=== PATIENT | female | born 1935 | race Caucasian/White ===

== ENCOUNTER 2020-08-01 11:46 | Inpatient (IN) | payer MEDICARE, OTHER ==
[2020-08-01] MEDS ORDERED: SODIUM CHLORIDE 0.9% 500 ML 500 ML IV SCH (17:15)
[2020-08-01 18:04] LABS: Albumin 3.3 g/dL (3.5-5.0); Potassium 4.3 mmol/L (3.5-5.1); Total Bilirubin 0.9 mg/dL (0.2-1.3); Total Protein 6.8 g/dL (6.3-8.2)
[2020-08-01 18:09] LABS: Anisocytosis Slight; HCT 23.4 % (34.0-46.0); HGB 7.5 gm/dL (11.4-16.0); Hypochromasia Slight; MCH 29.8 pg (25.0-35.0); MCHC 32.2 g/dL (31.0-37.0); MCV 92.5 fL (80.0-100.0); Mean Platelet Volume 11.1; Platelet Count 143 k/uL (150-450); Poikilocytosis Slight; RBC 2.53 m/uL (3.80-5.40); RDW 19.3 % (11.5-15.5)
--- NOTE | 2020-08-01 18:09 | XR ---
EXAMINATION TYPE: XR chest 1V portable DATE OF EXAM: 08/01/2020 COMPARISON: Same day outside study radiographs. HISTORY: Shortness of breath and chest pain. TECHNIQUE: Single frontal view of the chest is obtained. FINDINGS: There is redemonstration of small to moderate left pleural effusion with adjacent opacity. There is background of COPD. No pneumothorax. The cardiac silhouette size is within normal limits. The osseous structures are intact. IMPRESSION: Redemonstrated [id number] left pleural effusion and adjacent atelectasis.
[2020-08-01 18:12] LABS: WBC 1.2 k/uL (3.8-10.6)
[2020-08-01 18:40] LABS: Band Neutrophils % 5 %; Eosinophils # (M) 0.07 k/uL (0-0.7); Lymphocytes # (M) 0.43 k/uL (1.0-4.8); Monocytes # (M) 0.04 k/uL (0-1.0); Myelocytes # (M) 0.01 k/uL (0); Myelocytes % 1 %; Neutrophils % (M) 48 %; Nucleated Red Blood Cells 0 /100 WBC (0-0); Promyelocytes # (M) 0.01 k/uL (0); Promyelocytes % 1 %; Total Cells Counted 100
[2020-08-01 18:41] LABS: Poikilocytosis (M) Present
[2020-08-01] MEDS ORDERED: DILTIAZEM DRIP BOLUS FROM BAG 1 MG SOLN IV ONE (20:38)
[2020-08-01] MEDS: DILTIAZEM 125 MG in SODIUM CHLORIDE 0.9% 100 ML IV SCH (20:54)
[2020-08-01] MEDS ORDERED: HYDROcodone/APAP 5-325MG 1 EACH TAB PO PRN (20:56)
[2020-08-01] MEDS ORDERED: IPRATROPIUM-ALBUTEROL 3 ML NEB INHALATION PRN (20:57)
--- NOTE | 2020-08-01 21:06 | CT ---
EXAMINATION TYPE: CT chest wo con DATE OF EXAM: 08/01/2020 COMPARISON: Same day radiograph. Outside CT 12/13/2015. HISTORY: breathing changes CT DLP: 229.9 mGycm. Automated Exposure Control for Dose Reduction was Utilized. TECHNIQUE: CT scan of the thorax is performed without IV contrast. FINDINGS: LUNGS: There is background of moderate to severe centrilobular emphysema. There is mosaic attenuation pattern. There is small left lower lobe platelike opacity with "comet tail appearance" and may repre sent rounded atelectasis. There is associated moderate pleural thickening. Otherwise there is bilater al diffuse hazy opacity. No pneumothorax. There is small right pleural effusion. MEDIASTINUM: Lack of IV contrast is noted to limit evaluation for mediastinal and especially hilar ad enopathy. There are no definitive greater than 1 cm hilar or mediastinal lymph nodes. No cardiomega ly or pericardial effusion is seen. OTHER: No additional significant abnormality is seen. IMPRESSION: Moderate to severe emphysema with findings suggestive of small airway disease. Additional bilateral hazy opacities may represent edema and/atelectasis. Superimposed infiltrate hilton ot be entirely excluded. Left lower lobe platelike opacity with "comet tail appearance" and may represent rounded atelectasis. Associated moderate pleural thickening. Small right pleural effusion.
[2020-08-01] MEDS: DORZOLAMIDE HCL 2% DROPS 10 ML BTL BOTH EYES SCH (21:54)
[2020-08-01] MEDS: LATANOPROST 0.005% OPHTH DROPS 2.5 ML BTL BOTH EYES SCH (21:55)
--- NOTE | 2020-08-01 22:43 | HP ---
HISTORY AND PHYSICAL CHIEF COMPLAINTS: Shortness of breath as well as atrial fibrillation with rapid ventricular rate. HISTORY OF PRESENT ILLNESS: This 84-year-old woman with a past medical history of multiple medical problems, including history of pneumonia, sarcoidosis, thyroid disorder, right-sided pleurisy, hypothyroidism, living in [facility], was having shortness of breath for the last one week, which has worsened recently. Then the patient also had some pancytopenia. Patient went to [facility] and discussed the case at length with me and the patient was transferred to [facility] for further evaluation and treatment. Patient also had atrial fibrillation with a fast ventricular rate. Cardizem drip was initiated. There is no history of any fever, rigor or chills. No history of headache, loss of consciousness, seizures. A chest x-ray was done on admission, which was reviewed personally by me. It showed evidence of increased bronchovascular markings. A chest CT was done. D-dimer was elevated. We will repeat a D-dimer, and if the D-dimer is elevated, a CT angio will also will be ordered. The CT scan showed bilateral interstitial edema as well. PAST MEDICAL HISTORY: History of COPD, pneumonia, hypothyroidism, sarcoidosis, right-sided pleurisy, hypothyroidism. HOME MEDICATIONS: 1. Vitamin C/E/zinc. 2. PreserVision. 3. Iron sulfate. 4. Trusopt. 5. Synthroid. 6. Vitamin D3. 7. Xalatan. 8. Vitamin B12. 9. Ventolin. ALLERGIES: NONE. FAMILY HISTORY: History of diabetes mellitus in the family. SOCIAL HISTORY: Previous history of smoking. No current smoking or alcohol intake. REVIEW OF SYSTEMS: ENT: No diminished hearing. No diminished vision. CARDIOVASCULAR SYSTEM: As mentioned earlier. RESPIRATORY SYSTEM: As mentioned earlier. GI: No nausea, vomiting. : No dysuria or retention. NERVOUS SYSTEM: No numbness, weakness. ALLERGY/IMMUNOLOGY: No asthma, hayfever. MUSCULOSKELETAL: As mentioned earlier. HEMATOLOGY/ONCOLOGY: No history of anemia. ENDOCRINE: No history of diabetes, hypothyroidism. CONSTITUTIONAL: As mentioned earlier. DERMATOLOGY: Negative. RHEUMATOLOGY: Negative. PSYCHIATRY: As mentioned earlier. PHYSICAL EXAMINATION: Patient alert and oriented x3. Pulse is 80, blood pressure 120/90, respiration 20, temperature normal. HEENT: Conjunctivae normal. NECK: No jugular venous distention. CARDIOVASCULAR SYSTEM: S1, S2 muffled. RESPIRATORY SYSTEM: Breath sounds diminished at the bases. A few scattered rhonchi and crackles. ABDOMEN: Soft, non-tender. No mass palpable. LEGS: Left leg edema present and ulcer present. NERVOUS SYSTEM: Higher functions as mentioned earlier. Moves all 4 limbs. No focal motor or sensory deficit. LYMPHATICS: No lymph node palpable in neck, axillae or groin. SKIN: No ulcer, rash, bleeding. JOINTS: No active deforming arthropathy. LABS: Labs at this time show WBC 1.2, hemoglobin 7.5, platelets 143. ASSESSMENT: 1. Possible chronic obstructive pulmonary disease, acute exacerbation, with acute bilateral bronchopneumonia. 2. Rule out interstitial viral pneumonia, COVID-19 pneumonia. 3. Atrial fibrillation with fast ventricular rate. 4. Pancytopenia of undetermined etiology. 5. Severe leukopenia. 6. History of chronic obstructive pulmonary disease. 7. History of pneumonia. 8. History of sarcoidosis. 9. History of right-sided pleurisy. 10.Hypothyroidism. 11.History of cholecystectomy. 12.History of mediastinoscopy in 2010. RECOMMENDATIONS AND DISCUSSION: In this 84-year-old woman who presented with multiple complex medical issues, at this time I recommend to continue the current medications, continue symptomatic treatment. I recommend broad-spectrum IV antibiotics. Will continue with the Cardizem. Follow closely with Cardiology and Pulmonology. Otherwise, prognosis guarded because of multiple complex medical issues. Further recommendations to follow. MMODL / IJN: [id number] / MTDD
--- NOTE | 2020-08-01 23:21 | CT ---
EXAMINATION TYPE: CT chest angio for PE DATE OF EXAM: 08/01/2020 COMPARISON: Chest CT scan 12/13/2015 HISTORY: elevated d-dimer CT DLP: 232.4 mGycm Automated exposure control for dose reduction was used. CONTRAST: Performed with IV Contrast, patient injected with 55 mL of Isovue 370. Images obtained from the thoracic inlet to the diaphragm with IV contrast and 3-D post processed imag es. There are bilateral pleural effusions. There is more pleural fluid on the right side. There is bilate ral basilar pulmonary infiltrate and atelectasis. There are multiple enlarged paratracheal lymph nodes measuring up to almost 2 cm. There are anterior mediastinal enlarged lymph nodes measuring up to 2.2 cm. There are bilateral multiple bronchial lymph nodes measuring up to 1 cm. There is no pericardial effusion. There is coarse groundglass interstiti al infiltrate throughout the lungs. There is diffuse pulmonary emphysema. There are large central pulmonary arteries. I see no filling defects in the pulmonary arteries. There is mild thoracic dextroscoliosis. There is 5% depression of the superior endplate of T6 vertebr a that appears old. Sternum is intact. I see no focal bone destruction. IMPRESSION: No evidence of pulmonary embolism. Emphysema. Diffuse groundglass interstitial pulmonary infiltrates could relate to congestive heart fa ilure. Bilateral pleural effusions and basilar pulmonary infiltrates and atelectasis. Lung disease si gnificantly worse than old CT scan of 12/13/2015. T6 compression fracture unchanged. There is mediastinal and bronchial adenopathy that is slightly worse than old CT scan.
[2020-08-02] MEDS: PANTOPRAZOLE 40 MG TABLET PO SCH (06:48)
[2020-08-02] MEDS: LEVOTHYROXINE 112 MCG TAB PO SCH (06:49)
[2020-08-02 07:10] LABS: Appearance,Urine Clear (Clear); Bilirubin,Urine Negative (Negative); Blood,Urine Negative (Negative); Color,Urine Yellow; Glucose,Urine (UA) Negative (Negative); Ketones,Urine Negative (Negative); Leukocyte Esterase,Urine Negative (Negative); Mucus,Urine Rare /hpf; Nitrite,Urine Negative (Negative); Protein,Urine 1+ (Negative); RBC,Urine 2 /hpf (0-5); Squamous Epithelial Cell,Urine 2 /hpf (0-4); WBC,Urine 1 /hpf (0-5)
[2020-08-02 07:22] LABS: Specific Gravity,Urine >1.050 (1.001-1.035)
[2020-08-02] MEDS: IPRATROPIUM-ALBUTEROL 3 ML NEB INHALATION SCH ×3 (07:45→20:33)
[2020-08-02 08:12] LABS: Anisocytosis Slight; HCT 21.8 % (34.0-46.0); HGB 7.1 gm/dL (11.4-16.0); Hypochromasia Moderate; MCH 30.3 pg (25.0-35.0); MCHC 32.6 g/dL (31.0-37.0); Macrocytosis Slight; Mean Platelet Volume 10.9; Platelet Count 125 k/uL (150-450); Poikilocytosis Slight; RBC 2.35 m/uL (3.80-5.40); RDW 19.1 % (11.5-15.5)
[2020-08-02 08:20] LABS: Calcium 8.7 mg/dL (8.4-10.2); Potassium 4.5 mmol/L (3.5-5.1)
[2020-08-02 08:50] LABS: WBC 1.3 k/uL (3.8-10.6)
[2020-08-02] MEDS ORDERED: NON FORMULARY DRUG (Vit C/E/Zn/Coppr/Lutein/Zeaxan [Preservision Areds 2 Softgel] 1 EACH C PO SCH (09:00)
[2020-08-02] MEDS ORDERED: METOPROLOL TARTRATE 50 MG TAB PO SCH (10:00)
[2020-08-02] MEDS: DORZOLAMIDE HCL 2% DROPS 10 ML BTL BOTH EYES SCH ×2 (10:08→21:41)
[2020-08-02] MEDS: CYANOCOBALAMIN 500 MCG TAB PO SCH (10:09)
[2020-08-02] MEDS: CHOLECALCIFEROL 1,000 UNIT TAB PO SCH (10:09)
[2020-08-02] MEDS: FERROUS SULFATE 325 MG TAB PO SCH (10:09)
[2020-08-02] MEDS: FUROSEMIDE 10 MG/ML 4 ML VIAL IV SCH ×3 (11:38→23:51)
[2020-08-02 11:59] LABS: Band Neutrophils % 4 %; Basophils # (M) 0.03 k/uL (0-0.2); Lymphocytes # (M) 0.26 k/uL (1.0-4.8); Monocytes # (M) 0.09 k/uL (0-1.0); Neutrophils % (M) 51 %
[2020-08-02 12:04] LABS: Blast Cells # (M) 0.01 k/uL (0); Nucleated Red Blood Cells 0 /100 WBC (0-0); Total Cells Counted 100
[2020-08-02 12:05] LABS: Large Platelets Present
--- NOTE | 2020-08-02 12:11 | ECHOF ---
Referral Reason:afib MEASUREMENTS -------- HEIGHT: 172.7 cm WEIGHT: 65.8 kg BP: 115/55 RVIDd: 2.9 cm (< 3.3) IVSd: 1.2 cm (0.6 - 1.1) LVIDd: 5.2 cm (3.9 - 5.3) LVPWd: 1.2 cm (0.6 - 1.1) IVSs: 1.6 cm LVIDs: 3.1 cm LVPWs: 1.6 cm LA Diam: 3.4 cm (2.7 - 3.8) LAESV Index (A-L): 48.09 ml/m Ao Diam: 3.4 cm (2.0 - 3.7) AV Cusp: 2.0 cm (1.5 - 2.6) MV EXCURSION: 19.132 mm (> 18.000) MV EF SLOPE: 87 mm/s (70 - 150) EPSS: 0.5 cm AV maxP.55 mmHg AV meanP.69 mmHg AR PHT: 480 ms RAP: 5.00 mmHg RVSP: 41.78 mmHg FINDINGS -------- Atrial fibrillation. This was a technically good study. The left ventricular size is normal. There is borderline concentric left ventricular hypertrophy. Overall left ventricular systolic function is normal with, an EF between 60 - 65 %. The right ventricle is normal in size. LA is moderately dilated 34-39 ml/m2 The right atrium is normal in size. Interatrial and interventricular septum intact. There is mild aortic valve sclerosis. There is mild aortic regurgitation. Peak/mean gradient acro ss the Aortic Valve is 18.55mmHg / 9.69mmHg. The mitral valve leaflets are mildly thickened. Mild mitral annular calcification present. Mild m itral regurgitation is present. The peak and mean MV gradients are 11.09mmHg 3.25mmHg as measured by doppler. Mild tricuspid regurgitation present. There is mild pulmonary hypertension. The right ventricular systolic pressure, as measured by Doppler, is 41.78mmHg. Trace/mild (physiologic) pulmonic regurgitation. The aortic root size is normal. The inferior vena cava is mildly dilated. CONCLUSIONS -------- 1. The left ventricular size is normal. 2. There is borderline concentric left ventricular hypertrophy. 3. Overall left ventricular systolic function is normal with, an EF between 60 - 65 %. 4. LA is moderately dilated 34-39 ml/m2 5. There is mild aortic valve sclerosis. 6. There is mild aortic regurgitation. 7. Peak/mean gradient across the Aortic Valve is 18.55mmHg / 9.69mmHg. 8. The mitral valve leaflets are mildly thickened. 9. Mild mitral annular calcification present. 10. Mild mitral regurgitation is present. 11. The peak and mean MV gradients are 11.09mmHg 3.25mmHg as measured by doppler. 12. Mild tricuspid regurgitation present. 13. There is mild pulmonary hypertension. 14. The right ventricular systolic pressure, as measured by Doppler, is 41.78mmHg. 15. Trace/mild (physiologic) pulmonic regurgitation. 16. The inferior vena cava is mildly dilated. FAMILY PRACTICE NURSE PRACTITIONER: Annie Stockton RDCS
--- NOTE | 2020-08-02 12:15 | P.CRDCN ---
History of Present Illness History of present illness: HISTORY OF PRESENTING ILLNESS This is a pleasant 84-year-old occasion female past medical history significant for mitral and aortic regurgitation, sarcoidosis and hypothyroidism. She follows in the office with Dr. Armando. We have been asked to see in consultation for Deonte quiroz. She initially presented to [facility] with symptoms of shortness of breath. She states for he previous few days she has been experiencing increased shortness of breath from her baseline. On arrival her EKG revealed atrial fibrillation with rapid rate and cardizem was initiated. Rates when she arrived here were up as high as 160. Currently she is running in the 70's still in [employer]. She is dyspneic with conversation. She denies chest pain, dizziness, nausea, vomiting or diaphoresis. She continues to be on IV cardizem. Chest x- ray reveals small to moderate left pleural effusion. CT of the chest reveals left lower lobe opacity, associated moderate pleural thickening, moderate to severe emphysematous changes and bilateral hazy opacity is with the possibility of a superimposed infiltrate. CTA was also performed secondary to elevated d- dimer that was negative for pulmonary embolism with diffuse groundglass interstitial pulmonary infiltrates with more pleural fluid noted on the right. Laboratory data reviewed, WBC 1.9, hemoglobin 7.1, platelets 125, sodium 138, potassium 4.5, creatinine 1.06, cardiac enzymes negative 3, NT proBNP 11,300 and TSH 2.12. Current the she takes no daily cardiac medications. Most recent echocardiogram obtained in the office September 2019 reveals preserved LV systolic function with ejection fraction 55%, no regional wall motion abnormalities, moderately dilated left atrium, mild to moderate aortic regurgitation, mild to moderate mitral regurgitation and mild to moderate tricuspid regurgitation with an RVSP of 47 mmHg. REVIEW OF SYSTEMS At the time of my exam: CONSTITUTIONAL: Denies fever or chills. CARDIOVASCULAR: Complains of shortness of breath. Denies chest pain, orthopnea, PND or palpitations. RESPIRATORY: Denies cough. GASTROINTESTINAL: Denies abdominal pain, diarrhea, constipation, nausea or vomiting. MUSCULOSKELETAL: Denies myalgias. NEUROLOGIC: Denies numbness, tingling or weakness. ENDOCRINE: Denies fatigue, weight change, polydipsia or polyurina. GENITOURINARY: Denies burning, hematuria or urgency with micturation. HEMATOLOGIC: Denies history of anemia or bleeding. PHYSICAL EXAMINATION Blood pressure 116/66 heart rate 88 afebrile and maintaining oxygen saturation on nasal cannula. CONSTITUTIONAL: No apparent distress. HEENT: Head is normocephalic. Pupils are equal, round. Sclerae anicteric. Mucous membranes of the mouth are moist. No JVD. No carotid bruit. CHEST EXAMINATION: Diminished bilaterally. Scattered rhonchi and bibasilar rales. No chest wall tenderness is noted on palpation or with deep breathing. HEART EXAMINATION: Irregular rate and rhythm. S1, S2 heard. Systolic ejection murmur at the left sternal border, no gallops or rub. ABDOMEN: Soft, nontender. Positive bowel sounds. EXTREMITIES: 2+ peripheral pulses, trace bilateral lower extremity edema and no calf tenderness. NEUROLOGIC EXAMINATION: Patient is awake, alert and oriented x3. ASSESSMENT Paroxysmal atrial fibrillation with rapid ventricular rate, new onset Pancytopenia Pleural effusions Acute kidney injury Valvular heart disease Sarcoidosis Hypothyroidism PLAN Rates are currently better controlled. We will initiate lopressor 50 mg BID and discontinue cardizem infusion. For thromboembolic protection we will recommend eliquis however, would like to get the opinion first of Dr. Last given her pancytopenia. Obtain 2D echocardiogram and doppler study to assess cardiac structure and function. Pulmonary care team is also following for the pleural effusions. Further recommendations to follow based on clinical course. Thank you kindly for this consultation. Nurse Practitioner note has been reviewed, I agree with a documented findings and plan of care. Patient was seen and examined. Past Medical History Past Medical History: COPD, Pneumonia, Thyroid Disorder Additional Past Medical History / Comment(s): sarcoidosis, right side pleurisy, hypothyroidism History of Any Multi-Drug Resistant Organisms: None Reported Past Surgical History: Cholecystectomy Additional Past Surgical History / Comment(s): mediastinoscopy 2010 Past Anesthesia/Blood Transfusion Reactions: No Reported Reaction Past Psychological History: No Psychological Hx Reported Smoking Status: Never smoker Past Alcohol Use History: None Reported Past Drug Use History: None Reported - Past Family History Mother Family Medical History: Diabetes Mellitus Father Family Medical History: Cancer Medications and Allergies Home Medications Medication Instructions Recorded Confirmed Type Albuterol Nebulized [Ventolin 2.5 mg INHALATION Q6H PRN 12/22/15 08/01/20 History Nebulized] Cholecalciferol [Vitamin D3 (25 5,000 unit PO DAILY 12/22/15 08/01/20 History Mcg = 1000 Iu)] Cyanocobalamin [Vitamin B-12] 1,000 mcg PO DAILY 12/22/15 08/01/20 History Latanoprost [Xalatan 0.005%] 1 drop BOTH EYES HS 12/22/15 08/01/20 History Dorzolamide HCl [Trusopt 2%] 1 drop BOTH EYES BID 08/01/20 08/01/20 History Ferrous Sulfate [Iron (65 MG 325 mg PO DAILY 08/01/20 08/01/20 History Elemental)] Levothyroxine Sodium [Synthroid] 112 mcg PO DAILY 08/01/20 08/01/20 History Vit C/E/Zn/Coppr/Lutein/Zeaxan 1 tab PO DAILY 08/01/20 08/01/20 History [Preservision Areds 2 Softgel] Allergies Allergy/AdvReac Type Severity Reaction Status Date / Time No Known Allergies Allergy Verified 08/01/20 18:29 Physical Exam Vitals: Vital Signs Temp Pulse Pulse Resp BP Pulse Ox 08/02/20 08:00 97.7 F 88 20 116/66 97 08/02/20 07:55 88 08/02/20 07:47 84 08/02/20 04:00 98.1 F 74 19 115/55 94 L 08/02/20 00:00 98.4 F 100 20 124/58 96 08/01/20 20:00 98.2 F 133 H 19 135/67 94 L Intake and Output 08/01/20 08/02/20 08/02/20 22:59 06:59 14:59 Intake Total 240 Output Total 1 0 Balance 239 0 Intake: Oral 240 Output: Urine 1 0 Other: # Voids 1 Weight 65.5 kg 65.9 kg Results 08/02/20 07:06 08/02/20 07:06 Cardiac Enzymes 08/01/20 08/01/20 08/01/20 Range/Units 17:21 17:21 20:56 AST 17 (14-36) U/L Troponin I <0.012 <0.012 (0.000-0.034) ng/mL 08/02/20 Range/Units 00:47 AST (14-36) U/L Troponin I <0.012 (0.000-0.034) ng/mL CBC 08/01/20 08/02/20 Range/Units 17:21 07:06 WBC 1.2 L* 1.3 L* (3.8-10.6) k/uL RBC 2.53 L 2.35 L (3.80-5.40) m/uL Hgb 7.5 L 7.1 L (11.4-16.0) gm/dL Hct 23.4 L 21.8 L (34.0-46.0) % Plt Count 143 L 125 L (150-450) k/uL Comprehensive Metabolic Panel 08/01/20 08/02/20 Range/Units 17:21 07:06 Sodium 138 138 (137-145) mmol/L Potassium 4.3 4.5 (3.5-5.1) mmol/L Chloride 107 108 H (98-107) mmol/L Carbon Dioxide 26 26 (22-30) mmol/L BUN 25 H 29 H (7-17) mg/dL Creatinine 1.00 1.06 H (0.52-1.04) mg/dL Glucose 102 H 112 H (74-99) mg/dL Calcium 9.0 8.7 (8.4-10.2) mg/dL AST 17 (14-36) U/L ALT 9 (4-34) U/L Alkaline Phosphatase 110 (38-126) U/L Total Protein 6.8 (6.3-8.2) g/dL Albumin 3.3 L (3.5-5.0) g/dL Current Medications Generic Name Dose Route Start Last Admin Trade Name Freq PRN Reason Stop Dose Admin Hydrocodone Bitart/Acetaminophen 1 each 08/01/20 20:56 Hydrocodone/Apap 5-325mg 1 Each Tab PO Q6HR PRN Pain Albuterol/Ipratropium 3 ml 08/02/20 08:00 08/02/20 07:45 Ipratropium-Albuterol 3 Ml Neb INHALATION 3 ml RT-TID AAMIR Administration Albuterol/Ipratropium 3 ml 08/01/20 20:57 Ipratropium-Albuterol 3 Ml Neb INHALATION RT-TID PRN Shortness Of Breath Or Wheezing Apixaban 2.5 mg 08/02/20 10:00 Apixaban 2.5 Mg Tablet PO BID AAMIR Cholecalciferol 5,000 unit 08/02/20 09:00 08/02/20 10:09 Cholecalciferol 1,000 Unit Tab PO 5,000 unit DAILY AAMIR Administration Cyanocobalamin 1,000 mcg 08/02/20 09:00 08/02/20 10:09 Cyanocobalamin 500 Mcg Tab PO 1,000 mcg DAILY AAMIR Administration Dorzolamide HCl 1 drops 08/01/20 21:00 08/02/20 10:08 Dorzolamide Hcl 2% Drops 10 Ml Btl BOTH EYES 1 drops BID AAMIR Administration Ferrous Sulfate 325 mg 08/02/20 09:00 08/02/20 10:09 Ferrous Sulfate 325 Mg Tab PO 325 mg DAILY AAMIR Administration Furosemide 40 mg 08/02/20 11:00 08/02/20 11:38 Furosemide 10 Mg/Ml 4 Ml Vial IV 40 mg Q8HR AAMIR Administration Sodium Chloride 500 mls @ 20 mls/hr 08/01/20 17:15 08/01/20 21:03 Saline 0.9% IV 20 mls/hr .Q24H AAMIR Administration Diltiazem HCl 125 mg/ Sodium 125 mls @ 10 mls/hr 08/01/20 20:45 08/01/20 20:54 Chloride IV 10 mg/hr .[id number] AAMIR 10 mls/hr Administration 10 MG/HR Latanoprost 1 drops 08/01/20 21:00 08/01/20 21:55 Latanoprost 0.005% Ophth Drops 2.5 Ml Btl BOTH EYES 1 drops HS AAMIR Administration Levothyroxine Sodium 112 mcg 08/02/20 06:30 08/02/20 06:49 Levothyroxine 112 Mcg Tab PO 112 mcg DAILY@0630 AAMIR Administration Metoprolol Tartrate 50 mg 08/02/20 10:00 08/02/20 11:38 Metoprolol Tartrate 50 Mg Tab PO 50 mg BID AAMIR Administration Pantoprazole Sodium 40 mg 08/02/20 07:30 08/02/20 06:48 Pantoprazole 40 Mg Tablet PO 40 mg [id number] AAMIR Administration Intake and Output 08/01/20 08/02/20 08/02/20 22:59 06:59 14:59 Intake Total 240 Output Total 1 0 Balance 239 0 Intake: Oral 240 Output: Urine 1 0 Other: # Voids 1 Weight 65.5 kg 65.9 kg 08/02/20 07:06 08/02/20 07:06
--- NOTE | 2020-08-02 12:35 | P.PN ---
Subjective Patient is a pleasant 84-year-old the female with history of sarcoidosis and multiple other medical problems doesn't use any oxygen came in with complains of shortness of breath. Patient was also in atrial fibrillation was started on Cardizem drip patient had a CAT scan of the chest which appear like patient has bilateral pulmonary edema along with the some interstitial changes patient was a given Lasix was evaluated by cardiology. Cardizem is being discontinued at this time and patient will be started on beta hector. Patient also has pancytopenia with predominant blasts cells, oncology was consulted. Constitutional: Denied any fatigue denied any fever. Cardio vascular: denied any chest pain, palpitations Gastrointestinal denied any nausea vomiting Pulmonary: Still has some shortness of breath Neurologic denied any new focal deficits All inpatient medications were reviewed and appropriate changes in these medications as dictated in the interval history and assessment and plan. Objective - Vital Signs Vital signs: Vital Signs Temp 97.7 F 08/02/20 08:00 Pulse 88 08/02/20 08:00 Resp 20 08/02/20 08:00 BP 116/66 08/02/20 08:00 Pulse Ox 97 08/02/20 08:00 Intake & Output 08/01/20 08/02/20 08/02/20 18:59 06:59 18:59 Intake Total 240 Output Total 1 0 Balance 239 0 Weight 65.5 kg 65.9 kg Intake: Oral 240 Output: Urine 1 0 Other: # Voids 1 - Exam PHYSICAL EXAMINATION: GENERAL: The patient is alert and oriented x3, not in any acute distress. Well developed, well nourished. HEENT: Pupils are round and equally reacting to light. EOMI. No scleral icterus. No conjunctival pallor. Normocephalic, atraumatic. No pharyngeal erythema. No thyromegaly. CARDIOVASCULAR: S1 and S2 present. No murmurs, rubs, or gallops. PULMONARY: Chest is clear to auscultation, no wheezing or crackles. ABDOMEN: Soft, nontender, nondistended, normoactive bowel sounds. No palpable organomegaly. MUSCULOSKELETAL: No joint swelling or deformity. EXTREMITIES: No cyanosis, clubbing, or pedal edema. NEUROLOGICAL: Gross neurological examination did not reveal any focal deficits. SKIN: No rashes. - Labs CBC & Chem 7: 08/02/20 07:06 10/20/20 07:06 Labs: Abnormal Lab Results - Last 24 Hours (Table) 08/01/20 08/01/20 08/01/20 Range/Units 17:21 17:21 20:56 WBC 1.2 L* (3.8-10.6) k/uL RBC 2.53 L (3.80-5.40) m/uL Hgb 7.5 L (11.4-16.0) gm/dL Hct 23.4 L (34.0-46.0) % RDW 19.3 H (11.5-15.5) % Plt Count 143 L (150-450) k/uL Blast Cells % % Neutrophils # (Manual) 0.60 L (1.3-7.7) k/uL Lymphocytes # (Manual) 0.43 L (1.0-4.8) k/uL Myelocytes # (Manual) 0.01 H (0) k/uL Promyelocytes # (Man) 0.01 H (0) k/uL Blast Cells # (Man) (0) k/uL D-Dimer 25.94 H (<0.60) mg/L FEU Chloride (98-107) mmol/L BUN 25 H (7-17) mg/dL Creatinine (0.52-1.04) mg/dL Glucose 102 H (74-99) mg/dL Albumin 3.3 L (3.5-5.0) g/dL Ur Specific [place] (1.001-1.035) Urine Protein (Negative) Urine Mucus (None) /hpf 08/02/20 08/02/20 08/02/20 Range/Units 05:14 07:06 07:06 WBC 1.3 L* (3.8-10.6) k/uL RBC 2.35 L (3.80-5.40) m/uL Hgb 7.1 L (11.4-16.0) gm/dL Hct 21.8 L (34.0-46.0) % RDW 19.1 H (11.5-15.5) % Plt Count 125 L (150-450) k/uL Blast Cells % 1 H* % Neutrophils # (Manual) 0.70 L (1.3-7.7) k/uL Lymphocytes # (Manual) 0.26 L (1.0-4.8) k/uL Myelocytes # (Manual) (0) k/uL Promyelocytes # (Man) (0) k/uL Blast Cells # (Man) 0.01 H (0) k/uL D-Dimer (<0.60) mg/L FEU Chloride 108 H (98-107) mmol/L BUN 29 H (7-17) mg/dL Creatinine 1.06 H (0.52-1.04) mg/dL Glucose 112 H (74-99) mg/dL Albumin (3.5-5.0) g/dL Ur Specific [place] >1.050 H (1.001-1.035) Urine Protein 1+ H (Negative) Urine Mucus Rare H (None) /hpf Assessment and Plan Plan: -Shortness of breath: Probably secondary to congestive heart failure chronic diastolic dysfunction with acute exacerbation her a heart failure probably precipitated by atrial fibrillation. Patient received diuretics -Acute hypoxic respiratory failure: Secondary to CHF -COPD with probable mild acute exacerbation -Sarcoidosis -Congestive heart failure possible chronic diastolic dysfunction with mild acute exacerbation echocardiogram pending. Patient had a normal EF in the past -Proximal A. fib new onset: Patient was started on beta hector patient is presently rate controlled Cardizem was discontinued and patient will be in itiated on oral anticoagulation was on heparin -Bilateral pleural effusions secondary to CHF -Pancytopenia with predominant blasts cells: Oncology was consulted patient will need a bone marrow biopsy as an outpatient to rule out any leukemias.
[2020-08-02] MEDS: DILTIAZEM 125 MG in SODIUM CHLORIDE 0.9% 100 ML IV SCH (14:34)
--- NOTE | 2020-08-02 17:03 | CONS ---
CONSULTATION PULMONARY/CRITICAL CARE CONSULTATION: DATE OF SERVICE: 08/02/2020 This is an 84-year-old female known to me. She has a history of inactive or quiescent sarcoidosis. I have been seeing her for over the course of many years for her sarcoid, which was active at one point and placed in remission with a combination of corticosteroids and hydroxychloroquine. She has a history as well of pneumonia, right- sided pleurisy, hypothyroidism and also possibly some underlying COPD. She was a heavy smoker in the past. Anyway, she presented to [facility] with complaints of increasing shortness of breath. She did not have any chest pain or chest discomfort. She was not wheezing or coughing. She had no fever or chills. The patient apparently was discovered to have atrial fibrillation with RVR, and she was placed on a Cardizem drip. She is still short of breath but feeling better. Again, she denies any nausea, vomiting, diarrhea. She denies any abdominal pain. No genitourinary complaints. She also denies any additional pulmonary issues or complaints. She also denies any chest pain or chest discomfort. She also denies interestingly any palpitations, fluttering in her chest or rapid heartbeat. Currently she is resting comfortably. PAST MEDICAL HISTORY: Her past medical history is positive for COPD from previous tobacco use, pneumonia, hypothyroidism, sarcoidosis, pleurisy and hypothyroidism. HOME MEDICATIONS: Home medications include vitamin C, E and zinc, PreserVision, iron sulfate, eye drops, Synthroid, vitamin D3, vitamin B12 and Ventolin p.r.n. ALLERGIES: DENIED. FAMILY HISTORY: Positive for diabetes. SOCIAL HISTORY: Positive for previous tobacco use. She has not smoked in a number of years. She smoked for about 30 to 35 years total. No illicit drug use or alcohol intake. SURGICAL HISTORY: Surgical history is mostly remote. REVIEW OF SYSTEMS: CONSTITUTIONAL: Negative. NEUROLOGIC: Negative. HEENT: Negative. CARDIOVASCULAR: Negative. PULMONARY: Shortness of breath. GI: Negative. : Negative. RHEUMATOLOGIC: Negative. IMMUNOLOGIC: Negative. ENDOCRINOLOGIC: Negative. DERMATOLOGIC: Negative. PHYSICAL EXAMINATION: VITAL SIGNS: Current vital signs are reviewed. Temperature is 97.7, heart rate about 88 beats per minute and very irregular. Respiratory rate is about 25 to 26 breaths per minute. She appears to be in mild distress. Blood pressure 113/50 with mean 71, two- liter saturation 97%. GENERAL APPEARANCE: She appears mildly tachypneic. HEENT: Examination is grossly unremarkable. Nasal oxygen noted. NECK: Supple. Full range of motion. No adenopathy. Neck veins are flat. CARDIOVASCULAR: Examination reveals irregular rhythm and rate. Heart rate about 88 to 92 beats per minute. She is clearly in atrial fibrillation. No murmur. Heart sounds are distant. LUNGS: Lungs reveal bibasilar crackles. No wheezes or rhonchi. Breath sounds equal. ABDOMEN: Soft. Bowel sounds are heard. EXTREMITIES: Extremities reveal some mild edema. SKIN: Without rash. There are some chronic venostasis changes in the lower extremities. NEUROLOGIC: Neurologic examination is unremarkable. LABS: Reviewed. White count 1.3, hemoglobin 7.1, hematocrit 21.8. Platelet count is 125,000. D-dimer 25.94. Sodium 138, potassium 4.5, chloride 108, CO2 26. Anion gap is 4. BUN and creatinine were 29 and 1.06. Troponins were negative x3. N-terminal proBNP was 11,300. Urine was negative. Chest x-ray and CT scan and CT angiogram in my opinion are consistent with fluid overload. MEDICATIONS: Medications are reviewed. She is on Eliquis, vitamin D3, vitamin B12, Cardizem drip, eyedrops, iron, Lasix, [place], DuoNeb, levothyroxine, Protonix and a basic IV at 20 mL/hour of saline. ASSESSMENT: 1. Shortness of breath secondary to atrial fibrillation with rapid ventricular response and congestive heart failure. 2. Doubt chronic obstructive pulmonary disease exacerbation or any infection at this time. 3. History of inactive of quiescent sarcoidosis. 4. Previous history of heavy tobacco use. Rule out COPD, which is not active at this time. 5. History of pneumonia. 6. Hypothyroidism. 7. History of pleurisy. PLAN: Currently the patient is given Lasix 40 mg IV push q.8 hours. Cardiology is seeing the patient. I stopped antibiotics. The updrafts are okay for now. Additional recommendations and suggestions are forthcoming. Her sarcoid is not active at this time. Her COPD is not active at this time. No active infection in my opinion. Will continue to follow. MMODL / IJN: [id number] /
[2020-08-02] MEDS: APIXABAN 2.5 MG TABLET PO SCH ×2 (17:33→21:57)
--- NOTE | 2020-08-02 19:08 | P.CONS ---
History of Present Illness - Reason for Consult Consult date: 08/02/20 Pancytopenia, A fib with RVR, Sarcoidosis - History of Present Illness The patient is an 84-year-old white female with multiple medical problems. Include a known history of sarcoidosis, chronic lung infiltrates and pneumonia in the past. 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 The patient subsequently was evaluated by hematology, Dr. Kim , at [facility]. The patient states that she had lab workup which was negative. She denies having a bone marrow aspiration biopsy. She states that she has been on follow-up once a year as her counts have been stable. Her next visit was due in 09/02. The patient wanted to [facility] with increasing shortness of breath over the past week. She has a chronic cough with mild whitish expectoration which is unchanged. She was found to have atrial fibrillation with rapid ventricular response and was transferred here. She has had a chest x-ray, as well as CT and CTA of the chest. This was negative for evidence of PE. This showed bilateral interstitial infiltrates, somewhat more prominent at the bases with bilateral pleural effusions. In addition she was noted to have paratracheal, anterior mediastinal and bronchial lymph nodes, with the largest up to 2.2 cm in the paratracheal area. CBC this admission showed hemoglobin in the 7-8 range, platelets in the 120- 140 range, and WBC of 1.2-1.3 with ANC Consult was therefore placed for further evaluation and recommendations. She denied any specific be symptoms suggest fevers or weight loss. Appetite and oral intake have been at baseline. No unusual bleeding or bruising, joint swelling, or palpable lymph node enlargement noted. No addition of new medications recently. There is no history of any excessive alcohol use of chronic liver disease. Review of Systems Constitutional: Reports fatigue, Reports weakness Eyes: denies blurred vision, denies pain Ears: deny: decreased hearing, ear discharge, earache, tinnitus Ears, nose, mouth and throat: Denies headache, Denies sore throat Cardiovascular: Reports irregular heart beat, Reports palpitations, Reports samuel rtness of breath Respiratory: Reports cough with sputum, Reports dyspnea Gastrointestinal: Denies abdominal pain, Denies diarrhea, Denies nausea, Denies vomiting Genitourinary: Denies dysuria, Denies hematuria Menstruation: Reports postmenopausal Musculoskeletal: Reports muscle weakness Integumentary: Denies pruritus, Denies rash Neurological: Reports weakness, Denies numbness Psychiatric: Denies anxiety, Denies depression Endocrine: Reports fatigue Hematologic/Lymphatic: Reports as per HPI Past Medical History Past Medical History: COPD, Pneumonia, Thyroid Disorder Additional Past Medical History / Comment(s): sarcoidosis, right side pleurisy, hypothyroidism History of Any Multi-Drug Resistant Organisms: None Reported Past Surgical History: Cholecystectomy Additional Past Surgical History / Comment(s): mediastinoscopy 2010 Past Anesthesia/Blood Transfusion Reactions: No Reported Reaction Past Psychological History: No Psychological Hx Reported Smoking Status: Never smoker Past Alcohol Use History: None Reported Past Drug Use History: None Reported - Past Family History Mother Family Medical History: Diabetes Mellitus Father Family Medical History: Cancer Medications and Allergies Home Medications Medication Instructions Recorded Confirmed Type Albuterol Nebulized [Ventolin 2.5 mg INHALATION Q6H PRN 12/22/15 08/01/20 History Nebulized] Cholecalciferol [Vitamin D3 (25 5,000 unit PO DAILY 12/22/15 08/01/20 History Mcg = 1000 Iu)] Cyanocobalamin [Vitamin B-12] 1,000 mcg PO DAILY 12/22/15 08/01/20 History Latanoprost [Xalatan 0.005%] 1 drop BOTH EYES HS 12/22/15 08/01/20 History Dorzolamide HCl [Trusopt 2%] 1 drop BOTH EYES BID 08/01/20 08/01/20 History Ferrous Sulfate [Iron (65 MG 325 mg PO DAILY 08/01/20 08/01/20 History Elemental)] Levothyroxine Sodium [Synthroid] 112 mcg PO DAILY 08/01/20 08/01/20 History Vit C/E/Zn/Coppr/Lutein/Zeaxan 1 tab PO DAILY 08/01/20 08/01/20 History [Preservision Areds 2 Softgel] Allergies Allergy/AdvReac Type Severity Reaction Status Date / Time No Known Allergies Allergy Verified 08/01/20 18:29 Physical Exam Vitals: Vital Signs Temp Pulse Pulse Resp BP Pulse Ox 08/02/20 15:22 63 20 117/61 97 08/02/20 13:20 50 L 20 113/50 97 08/02/20 13:16 52 L 08/02/20 13:06 48 L 08/02/20 08:00 97.7 F 88 20 116/66 97 08/02/20 07:55 60 08/02/20 07:47 60 08/02/20 04:00 98.1 F 74 19 115/55 94 L 08/02/20 00:00 98.4 F 100 20 124/58 96 08/01/20 20:00 98.2 F 133 H 19 135/67 94 L Intake and Output 08/02/20 08/02/20 08/02/20 06:59 14:59 22:59 Intake Total 100 230 Output Total 0 450 Balance 100 -220 Intake: Oral 100 230 Output: Urine 0 450 Other: # Voids 1 Weight 65.9 kg - Constitutional General appearance: no acute distress - EENT Eyes: EOMI, PERRLA ENT: hearing grossly normal, normal oropharynx - Neck Neck: no lymphadenopathy Thyroid: bilateral: normal size - Respiratory Respiratory: bilateral: rales, prolonged expiration - Cardiovascular Rhythm: irregularly irregular Heart sounds: normal: S1, S2 - Gastrointestinal General gastrointestinal: normal bowel sounds, soft - Integumentary Integumentary: normal - Neurologic Neurologic: CNII-XII intact - Musculoskeletal Musculoskeletal: generalized weakness, strength equal bilaterally - Psychiatric Psychiatric: A&O x's 3, appropriate affect Results CBC & Chem 7: 08/02/20 07:06 08/02/20 07:06 Labs: Abnormal Lab Results - Last 24 Hours (Table) 08/01/20 08/02/20 08/02/20 Range/Units 20:56 05:14 07:06 WBC 1.3 L* (3.8-10.6) k/uL RBC 2.35 L (3.80-5.40) m/uL Hgb 7.1 L (11.4-16.0) gm/dL Hct 21.8 L (34.0-46.0) % RDW 19.1 H (11.5-15.5) % Plt Count 125 L (150-450) k/uL Blast Cells % 1 H* % Neutrophils # (Manual) 0.70 L (1.3-7.7) k/uL Lymphocytes # (Manual) 0.26 L (1.0-4.8) k/uL Blast Cells # (Man) 0.01 H (0) k/uL D-Dimer 25.94 H (<0.60) mg/L FEU Chloride (98-107) mmol/L BUN (7-17) mg/dL Creatinine (0.52-1.04) mg/dL Glucose (74-99) mg/dL Ur Specific [place] >1.050 H (1.001-1.035) Urine Protein 1+ H (Negative) Urine Mucus Rare H (None) /hpf 08/02/20 Range/Units 07:06 WBC (3.8-10.6) k/uL RBC (3.80-5.40) m/uL Hgb (11.4-16.0) gm/dL Hct (34.0-46.0) % RDW (11.5-15.5) % Plt Count (150-450) k/uL Blast Cells % % Neutrophils # (Manual) (1.3-7.7) k/uL Lymphocytes # (Manual) (1.0-4.8) k/uL Blast Cells # (Man) (0) k/uL D-Dimer (<0.60) mg/L FEU Chloride 108 H (98-107) mmol/L BUN 29 H (7-17) mg/dL Creatinine 1.06 H (0.52-1.04) mg/dL Glucose 112 H (74-99) mg/dL Ur Specific [place] (1.001-1.035) Urine Protein (Negative) Urine Mucus (None) /hpf Comments: ECHO report reviewed Chest x-ray: report reviewed CT scan - chest: report reviewed Assessment and Plan (1) Pancytopenia Narrative/Plan: The patient has a known history of bicytopenia dating back to 2015. She is on regular follow-up with hematology at [facility]. The patient her counts were stable at her last visit in 09/01. Based on the available history it appears that lab workup was negative. Due to stability of her counts bone marrow aspiration biopsy was not performed. Th erefore exact etiology is not available. Given the patient's age underlying myelodysplasia, and even sarcoid involvement are in the differential. In this admission there is significant decline in her counts from baseline. Transient a decline due to added stress of acute illness, on a marrow that is chronically compromised at baseline is the most likely diagnosis. In that situation the treatment would be essentially supportive, with the expectation that counts will improve back to baseline once the acute illness results. However progression of an underlying marrow process also remains in the differential. At this time we will treat supportively, I starting the patient on white cell growth factors. Monitor hemoglobin and transfuse to keep greater than 7. Plt counts are well within a safe range. Pancytopenia workup will be repeated. Request records from her last visit with hematology from [facility] Current Visit: Yes Status: Acute Code(s): D61.818 - OTHER PANCYTOPENIA SNOMED Code(s): 753724701 (2) Atrial fibrillation with RVR Narrative/Plan: Weight is better controlled. Cardiology as well as pulmonary medicine are also following. Defer to them for acute management It is okay to anticoagulate the patient, as long as her platelet counts are greater than 50,000. though currently lower than normal, they are well above that safe limit. Current Visit: Yes Status: Acute Code(s): I48.91 - UNSPECIFIED ATRIAL FIBRILLATION SNOMED Code(s): 380834156176421
[2020-08-02] MEDS: FILGRASTIM-SNDZ 300 MCG/0.5 ML SYRINGE SQ SCH (21:41)
[2020-08-02] MEDS: LATANOPROST 0.005% OPHTH DROPS 2.5 ML BTL BOTH EYES SCH (21:41)
[2020-08-03] MEDS: PANTOPRAZOLE 40 MG TABLET PO SCH (06:37)
[2020-08-03] MEDS: LEVOTHYROXINE 112 MCG TAB PO SCH (06:37)
[2020-08-03] MEDS: IPRATROPIUM-ALBUTEROL 3 ML NEB INHALATION SCH ×3 (07:11→20:12)
[2020-08-03 07:39] LABS: Anisocytosis Slight; HGB 7.2 gm/dL (11.4-16.0); Hypochromasia Slight; MCH 30.5 pg (25.0-35.0); MCHC 32.7 g/dL (31.0-37.0); MCV 93.5 fL (80.0-100.0); Macrocytosis Slight; Mean Platelet Volume 10.8; Platelet Count 133 k/uL (150-450); Poikilocytosis Slight; RBC 2.35 m/uL (3.80-5.40); RDW 19.1 % (11.5-15.5); WBC 2.1 k/uL (3.8-10.6)
[2020-08-03 07:48] LABS: Reticulocyte % 1.8 % (0.5-2.0)
[2020-08-03 08:01] LABS: Calcium 8.6 mg/dL (8.4-10.2); Potassium 4.1 mmol/L (3.5-5.1)
[2020-08-03 08:46] LABS: Band Neutrophils % 10 %; Eosinophils # (M) 0.11 k/uL (0-0.7); Lymphocytes # (M) 0.17 k/uL (1.0-4.8); Metamyelocytes # (M) 0.02 k/uL (0); Metamyelocytes % 1 %; Monocytes # (M) 0.04 k/uL (0-1.0); Myelocytes # (M) 0.02 k/uL (0); Myelocytes % 1 %; Neutrophils % (M) 73 %
[2020-08-03 08:47] LABS: Blast Cells # (M) 0.04 k/uL (0); Large Platelets Present; Nucleated Red Blood Cells 0 /100 WBC (0-0); Total Cells Counted 200
[2020-08-03] MEDS: FILGRASTIM-SNDZ 300 MCG/0.5 ML SYRINGE SQ SCH (09:25)
[2020-08-03] MEDS: CHOLECALCIFEROL 1,000 UNIT TAB PO SCH (09:26)
[2020-08-03] MEDS: FERROUS SULFATE 325 MG TAB PO SCH (09:27)
[2020-08-03] MEDS: APIXABAN 2.5 MG TABLET PO SCH ×2 (09:27→19:52)
[2020-08-03] MEDS: FUROSEMIDE 10 MG/ML 4 ML VIAL IV SCH ×2 (09:27→19:52)
[2020-08-03] MEDS: CYANOCOBALAMIN 500 MCG TAB PO SCH (09:27)
[2020-08-03] MEDS: DORZOLAMIDE HCL 2% DROPS 10 ML BTL BOTH EYES SCH ×2 (09:28→21:36)
[2020-08-03] MEDS: METOPROLOL TARTRATE 12.5 MG TAB PO SCH ×2 (09:29→19:52)
--- NOTE | 2020-08-03 10:15 | P.PN ---
Subjective Patient is a pleasant 84-year-old the female with history of sarcoidosis and multiple other medical problems doesn't use any oxygen came in with complains of shortness of breath. Patient was also in atrial fibrillation was started on Cardizem drip patient had a CAT scan of the chest which appear like patient has bilateral pulmonary edema along with the some interstitial changes patient was a given Lasix was evaluated by cardiology. Cardizem is being discontinued at this time and patient will be started on beta hector. Patient also has pancytopenia with predominant blasts cells, oncology was consulted. 08/03/2020 Patient day saturations are borderline on 2-3 L of oxygen patient is wheezing on exam can be cardiac asthma can be COPD examination patient was started on inhaled steroids patient is already and albuterol ipratropium which will be continued patient can use to be on IV Lasix. Patient was evaluated by oncology for pancytopenia, lab work up was ordered for pancytopenia although they're not recommending any bone marrowaspiration as she may have some amount of myelodysplasia and considering her age there will not be any significant further intervention at this time. Constitutional: Denied any fatigue denied any fever. Cardio vascular: denied any chest pain, palpitations Gastrointestinal denied any nausea vomiting Pulmonary: Still has some shortness of breath Neurologic denied any new focal deficits All inpatient medications were reviewed and appropriate changes in these medications as dictated in the interval history and assessment and plan. Objective - Vital Signs Vital signs: Vital Signs Temp 97.9 F 08/03/20 04:00 Pulse 85 08/03/20 04:00 Resp 19 08/03/20 04:00 BP 135/55 08/03/20 04:00 Pulse Ox 93 L 08/03/20 04:00 Intake & Output 08/02/20 08/03/20 08/03/20 18:59 06:59 18:59 Intake Total 330 Output Total 450 600 Balance -120 -600 Weight 64.4 kg Intake: Oral 330 Output: Urine 450 600 - Exam PHYSICAL EXAMINATION: GENERAL: The patient is alert and oriented x3, not in any acute distress. Well developed, well nourished. HEENT: Pupils are round and equally reacting to light. EOMI. No scleral icterus. No conjunctival pallor. Normocephalic, atraumatic. No pharyngeal erythema. No thyromegaly. CARDIOVASCULAR: S1 and S2 present. No murmurs, rubs, or gallops. PULMONARY: significant expiratory wheezing on exam with mild rhonchi ABDOMEN: Soft, nontender, nondistended, normoactive bowel sounds. No palpable organomegaly. MUSCULOSKELETAL: No joint swelling or deformity. EXTREMITIES: No cyanosis, clubbing, or pedal edema. NEUROLOGICAL: Gross neurological examination did not reveal any focal deficits. SKIN: No rashes. - Labs CBC & Chem 7: 08/03/20 06:57 08/03/20 06:57 Labs: Abnormal Lab Results - Last 24 Hours (Table) 08/02/20 08/03/20 08/03/20 Range/Units 07:06 06:57 06:57 WBC 1.3 L* 2.1 L (3.8-10.6) k/uL RBC 2.35 L 2.35 L (3.80-5.40) m/uL Hgb 7.1 L 7.2 L (11.4-16.0) gm/dL Hct 21.8 L 22.0 L (34.0-46.0) % RDW 19.1 H 19.1 H (11.5-15.5) % Plt Count 125 L 133 L (150-450) k/uL Blast Cells % 1 H* 2 H* % Neutrophils # (Manual) 0.70 L (1.3-7.7) k/uL Lymphocytes # (Manual) 0.26 L 0.17 L (1.0-4.8) k/uL Metamyelocytes # (Man) 0.02 H (0) k/uL Myelocytes # (Manual) 0.02 H (0) k/uL Blast Cells # (Man) 0.01 H 0.04 H (0) k/uL BUN 31 H (7-17) mg/dL Creatinine 1.09 H (0.52-1.04) mg/dL Glucose 105 H (74-99) mg/dL Microbiology - Last 24 Hours (Table) 08/01/20 20:58 Blood Culture - Preliminary Blood No Growth after 24 hours Assessment and Plan Plan: -Shortness of breath: Probably secondary to congestive heart failure chronic diastolic dysfunction with acute exacerbation her a heart failure probably precipitated by atrial fibrillation. Patient received diuretics -Acute hypoxic respiratory failure: Secondary to CHF -COPD with probable mild acute exacerbation, patient will be started on inhaled steroids. -Sarcoidosis -Congestive heart failure possible chronic diastolic dysfunction with acute exacerbation echocardiogram showed normal ejection fraction. Patient had a normal EF in the past -Proximal A. fib new onset: Patient was started on beta hector patient is presently rate controlled Cardizem was discontinued and patient will be initiated on oral anticoagulation 50 Eliquis -Bilateral pleural effusions secondary to CHF -Pancytopenia with predominant blasts cells: Oncology evaluated the patient starting on workup and further workup for Pancytopenia was ordered but not recommending any bone marrow biopsy as mentioned above , patient probably has Myelodysplasia
--- NOTE | 2020-08-03 10:59 | US ---
EXAMINATION TYPE: US abdomen complete DATE OF EXAM: 08/03/2020 COMPARISON: NONE CLINICAL HISTORY: Pancytopenia, poss splenomegaly, chronic liver dis. EXAM MEASUREMENTS: Liver Length: 19.6 cm Gallbladder Wall: Surgically absent CBD: 0.7 cm Spleen: 16.5 cm Right Kidney: 9.6 x 3.9 x 4.4 cm Left Kidney: 9.7 x 4.7 x 5.2 cm Pancreas: Mostly obscured by bowel gas, portions visualized wnl Liver: enlarged Gallbladder: Surgically absent Evidence for sonographic Marshall's sign: no CBD: wnl Spleen: splenomegaly, splenic lesion measuring 1.3 x 1.1 x 1.0cm Right Kidney: No hydronephrosis or masses seen Left Kidney: Mostly obscured by overlying bowel gas, no obvious abnormality Upper IVC: prominent Abd Aorta: heavily calcified aorta Small right pleural effusion is noted The liver is homogenous. The intrahepatic portion of the IVC and proximal abdominal aorta are within normal limits. Common bile duct is unremarkable. The visualized portions of the pancreas are homoge nous. The spleen is unremarkable. Kidneys are symmetric and free of hydronephrosis. No renal lesio ns are seen. IMPRESSION: Hepatosplenomegaly. Small right pleural effusion. Stopped change. Indeterminate splenic l esion.
--- NOTE | 2020-08-03 11:31 | P.PN ---
Subjective HISTORY OF PRESENTING ILLNESS This is a pleasant 84-year-old occasion female past medical history significant for mitral and aortic regurgitation, sarcoidosis and hypothyroidism. She follows in the office with Dr. Armando. She converted to sinus mechanism yesterday after metoprolol was given. Initially she was in a junctional rhythm. This morning she is sinus with heart rate of 88. Blood pressure 131/60. Laboratory data reviewed, WBC 2.1, hemoglobin 7.2, platelets 133, sodium 139, potassium 4.1, creatinine 1.09. Eliquis was initiated last night per hematology. Echocardiogram obtained reveals preserved LV systolic function with ejection fr action 60-65%, mild aortic regurgitation, mild aortic stenosis with a mean gradient of 9 mmHg, mild MR with peak gradient across the mitral valve with 3 mmHg, mild TR and mild pulmonary hypertension with an RVSP of 41 mmHg. Pulmonary care team has started her on IV diuretics. She has put out 1050 mL the previous 24 hours. PHYSICAL EXAMINATION CONSTITUTIONAL: No apparent distress. HEENT: Head is normocephalic. Pupils are equal, round. Sclerae anicteric. Mucous membranes of the mouth are moist. No JVD. No carotid bruit. CHEST EXAMINATION: Diminished bilaterally. Scattered rhonchi and bibasilar rales. No chest wall tenderness is noted on palpation or with deep breathing. HEART EXAMINATION: Regular rate and rhythm. S1, S2 heard. Systolic ejection murmur at the left sternal border, no gallops or rub. EXTREMITIES: 2+ peripheral pulses, trace bilateral lower extremity edema and no calf tenderness. ASSESSMENT Paroxysmal atrial fibrillation with rapid ventricular rate, new onset Acute diastolic heart failure Pancytopenia Pleural effusions Acute kidney injury Valvular heart disease Sarcoidosis Hypothyroidism PLAN Continue Eliquis. Decreased Lopressor to 12.5 mg twice a day. Continue IV diuresis. Follow renal function and electrolytes in the morning. Repeat chest xray tomorrow. Nurse Practitioner note has been reviewed, I agree with a documented findings and plan of care. Patient was seen and examined. Objective - Vital Signs Vital signs: Vital Signs Temp 97.8 F 08/03/20 09:15 Pulse 80 08/03/20 10:43 Resp 20 08/03/20 09:15 BP 131/60 08/03/20 09:15 Pulse Ox 98 08/03/20 09:15 Intake & Output 08/02/20 08/03/20 08/03/20 18:59 06:59 18:59 Intake Total 330 Output Total 450 600 350 Balance -120 -600 -350 Weight 64.4 kg Intake: Oral 330 Output: Urine 450 600 350 - Labs CBC & Chem 7: 08/03/20 06:57 08/03/20 06:57 Labs: Abnormal Lab Results - Last 24 Hours (Table) 08/02/20 08/03/20 08/03/20 Range/Units 07:06 06:57 06:57 WBC 1.3 L* 2.1 L (3.8-10.6) k/uL RBC 2.35 L 2.35 L (3.80-5.40) m/uL Hgb 7.1 L 7.2 L (11.4-16.0) gm/dL Hct 21.8 L 22.0 L (34.0-46.0) % RDW 19.1 H 19.1 H (11.5-15.5) % Plt Count 125 L 133 L (150-450) k/uL Blast Cells % 1 H* 2 H* % Neutrophils # (Manual) 0.70 L (1.3-7.7) k/uL Lymphocytes # (Manual) 0.26 L 0.17 L (1.0-4.8) k/uL Metamyelocytes # (Man) 0.02 H (0) k/uL Myelocytes # (Manual) 0.02 H (0) k/uL Blast Cells # (Man) 0.01 H 0.04 H (0) k/uL BUN 31 H (7-17) mg/dL Creatinine 1.09 H (0.52-1.04) mg/dL Glucose 105 H (74-99) mg/dL Microbiology - Last 24 Hours (Table) 08/01/20 20:58 Blood Culture - Preliminary Blood No Growth after 24 hours
[2020-08-03 11:37] LABS: Protein, Total 6.3 g/dL (6.2-8.2)
--- NOTE | 2020-08-03 14:05 | P.PN ---
Subjective Progress Note Date: 08/03/20 Principal diagnosis: Shortness of breath, 60 to atrial fibrillation with RVR and acute exacerbation of CHF 84-year-old white female patient with known history of inactive quiescent sarcoidosis, history of heavy tobacco use, however it never actually diagnosed with COPD, previous history of pneumonia, hypothyroidism, who came into the hospital on 08/01/2020 for evaluation of worsening shortness of breath. Patient denied any chest pain or chest discomfort, no fever, no chills. No cough, patient was found to be in A. fib with RVR, initially placed on Cardizem drip for rate control, which was later weaned off, and patient was started on beta blockers per cardiology, and oral anticoagulation in the form of Eliquis. Heart the heart rate is much better controlled, breathing easier, her chest x-ray showed small to moderate left pleural effusion and adjacent atelectasis. CT chest without contrast showed moderate to severe emphysema with findings suggestive of small airway disease, and bilateral hazy opacities representing edema and atelectasis, left lower lobe platelike opacity that could represent rounded atelectasis. Small right pleural effusion. She was also quite pancytopenic on admission, white blood cell count of 1.2, hemoglobin is 7.5, platelet count of 143, d-dimer was significantly elevated at 25.9, however CTA chest showed no evidence of pulmonary embolism, he did show emphysema, diffuse ground glass interstitial pulmonary infiltrates noted to congestive heart failure, bilateral pleural effusions and basilar pulmonary infiltrates and atelectasis, he 6 compression fracture was unchanged. Troponins were less than 0.0123, proBNP was 11,300, TSH was within normal limits at 2.120, urinalysis was negative for any sign of infection, she is quite dyspneic, tachypneic she was started on IV Lasix, she is in -720 ML fluid balance over the last 24 hours, she is breathing easier, although still dyspneic with any light exertion and even with speaking. She's been get not to the bedside commode, tolerating activity fairly well. Today's lab work has been reviewed showing white blood cell count of 2.1, hemoglobin of 7.2, blasts 2%, severely limits, BUN of 31 creatinine is 1.09, TSH was within normal limits. Hematology is following regarding the results of the abnormal CBC Objective - Vital Signs Vital signs: Vital Signs Temp 96.7 F L 08/03/20 11:36 Pulse 89 08/03/20 11:36 Resp 20 08/03/20 11:36 BP 132/60 08/03/20 11:36 Pulse Ox 96 08/03/20 11:36 Intake & Output 08/02/20 08/03/20 08/03/20 18:59 06:59 18:59 Intake Total 330 Output Total 450 600 700 Balance -120 -600 -700 Weight 64.4 kg Intake: Oral 330 Output: Urine 450 600 700 - Exam GENERAL EXAM: Alert, very pleasant, 84-year-old female on 2 L of oxygen a pulse ox of 96% comfortable in no apparent distress. HEAD: Normocephalic/atraumatic. EYES: Normal reaction of pupils, equal size. Conjunctiva pink, sclera white. NOSE: Clear with pink turbinates. THROAT: No erythema or exudates. NECK: No masses, no JVD, no thyroid enlargement, no adenopathy. CHEST: No chest wall deformity. Symmetrical expansion. LUNGS: Equal air entry with no crackles, wheeze, rhonchi or dullness. CVS: Irregular rate and rhythm, normal S1 and S2, no gallops, no murmurs, no rubs ABDOMEN: Soft, nontender. No hepatosplenomegaly, normal bowel sounds, no guarding or rigidity. EXTREMITIES: No clubbing, mild pretibial edema, no cyanosis, 2+ pulses and upper and lower extremities. MUSCULOSKELETAL: Muscle strength and tone normal. SPINE: No scoliosis or deformity SKIN: No rashes CENTRAL NERVOUS SYSTEM: Alert and oriented -3. No focal deficits, tone is normal in all 4 extremities. PSYCHIATRIC: Alert and oriented -3. Appropriate affect. Intact judgment and insight. - Labs CBC & Chem 7: 08/03/20 06:57 08/03/20 06:57 Labs: Abnormal Lab Results - Last 24 Hours (Table) 08/03/20 08/03/20 Range/Units 06:57 06:57 WBC 2.1 L (3.8-10.6) k/uL RBC 2.35 L (3.80-5.40) m/uL Hgb 7.2 L (11.4-16.0) gm/dL Hct 22.0 L (34.0-46.0) % RDW 19.1 H (11.5-15.5) % Plt Count 133 L (150-450) k/uL Blast Cells % 2 H* % Lymphocytes # (Manual) 0.17 L (1.0-4.8) k/uL Metamyelocytes # (Man) 0.02 H (0) k/uL Myelocytes # (Manual) 0.02 H (0) k/uL Blast Cells # (Man) 0.04 H (0) k/uL BUN 31 H (7-17) mg/dL Creatinine 1.09 H (0.52-1.04) mg/dL Glucose 105 H (74-99) mg/dL Microbiology - Last 24 Hours (Table) 08/01/20 20:58 Blood Culture - Preliminary Blood No Growth after 24 hours Assessment and Plan Plan: Assessment: #1. Acute exacerbation of congestive heart failure with diastolic dysfunction, echocardiogram showed preserved left ventricular systolic function with an EF of 60-65%, mild aortic regurg, mild mitral regurg, mild tricuspid regurg and mild pulmonary hypertension with right-sided pressure of 41.7 mmHg #2. History of inactive quiescent sarcoidosis #3. 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 Atrial fibrillation with RVR, currently better controlled #5. History of COPD #6. Previous history of tobacco use currently in remission, patient has had a 30-35 pack years of smoking #7. Previous episodes of pneumonia #8. Hypothyroidism #9. History of pleurisy Plan: Continue diuretics for another 24 hours, accurate intake and output, daily weights, patient is breathing easier, still has exertional dyspnea which could be related to pancytopenia, and fluid overload related to acute exacerbation of CHF. No fever or chills, continue with the [facility]. And terminal proBNP was noted, echocardiogram was noted, rate is better controlled, patient has been started on Eliquis and beta blockers, her rate is better controlled, cardiology is following, hematology is following. We'll continue to follow, follow-up chest x-ray in the morning I performed a history & physical examination of the patient and discussed their management with my nurse practitioner, Shira Langford. I reviewed the nurse practitioner's note and agree with the documented findings and plan of care. Lung sounds are positive for diminished breath sounds. The findings and the impression was discussed with the patient. I attest to the documentation by the nurse practitioner. Time with Patient: Less than 30
[2020-08-03 14:14] LABS: Free Kappa Lt Chain Qnt, Serum 3.93 mg/dL (0.33-1.94)
[2020-08-03 14:33] LABS: % Iron Saturation 13.07 (12.00-45.00); Ferritin 569.7 ng/mL (10.0-291.0)
[2020-08-03] MEDS: BUDESONIDE 0.5 MG/2 ML NEBU INHALATION SCH (20:13)
--- NOTE | 2020-08-03 21:21 | P.PN ---
Subjective Progress Note Date: 08/03/20 The patient remains quite short of breath, with about two-pillow orthopnea. No fever/chills/nausea/vomiting/obvious bleeding. Appetite remains diminished. Objective - Vital Signs Vital signs: Vital Signs Temp 99.1 F 08/03/20 16:19 Pulse 114 H 08/03/20 20:33 Resp 18 08/03/20 16:19 BP 133/64 08/03/20 16:19 Pulse Ox 93 L 08/03/20 20:13 Intake & Output 08/03/20 08/03/20 08/04/20 06:59 18:59 06:59 Intake Total 218 Output Total 600 700 Balance -600 -482 Weight 64.4 kg Intake: Oral 218 Output: Urine 600 700 - Constitutional General appearance: Present: mild distress - EENT Eyes: Present: EOMI, PERRLA ENT: Present: hearing grossly normal, normal oropharynx - Respiratory Respiratory: bilateral: rales, prolonged expiration - Cardiovascular Rhythm: irregularly irregular Heart sounds: normal: S1, S2 - Gastrointestinal General gastrointestinal: Present: normal bowel sounds, soft - Neurologic Neurologic: Present: CNII-XII intact - Musculoskeletal Musculoskeletal: Present: generalized weakness, strength equal bilaterally - Psychiatric Psychiatric: Present: A&O x's 3, appropriate affect - Labs CBC & Chem 7: 08/03/20 06:57 08/03/20 06:57 Labs: Abnormal Lab Results - Last 24 Hours (Table) 08/03/20 08/03/20 08/03/20 Range/Units 06:57 06:57 06:57 WBC 2.1 L (3.8-10.6) k/uL RBC 2.35 L (3.80-5.40) m/uL Hgb 7.2 L (11.4-16.0) gm/dL Hct 22.0 L (34.0-46.0) % RDW 19.1 H (11.5-15.5) % Plt Count 133 L (150-450) k/uL Blast Cells % 2 H* % Lymphocytes # (Manual) 0.17 L (1.0-4.8) k/uL Metamyelocytes # (Man) 0.02 H (0) k/uL Myelocytes # (Manual) 0.02 H (0) k/uL Blast Cells # (Man) 0.04 H (0) k/uL Haptoglobin 207.0 H (31.2-198.0) mg/dL BUN 31 H (7-17) mg/dL Creatinine 1.09 H (0.52-1.04) mg/dL Glucose 105 H (74-99) mg/dL Iron 23 L (50-170) ug/dL TIBC 176 L (228-460) ug/dL Ferritin 569.7 H (10.0-291.0) ng/mL Vitamin B12 2177.0 H (200.0-944.0) pg/mL Free [place] LC, Quant 3.93 H (0.33-1.94) mg/dL Free Lambda LC, Quant 55.40 H (0.57-2.63) mg/dL Microbiology - Last 24 Hours (Table) 08/01/20 20:58 Blood Culture - Preliminary Blood No Growth after 24 hours Assessment and Plan (1) Pancytopenia Narrative/Plan: Blood counts are overall stable today, with hemoglobin in the 7-8 range, platelets 133. WBC had shown improvement to 2.1 with G-CSF. However diffe rential showing a greater left shift. Her arm maker last visit notes from [place] were subsequently obtained and reviewed. These indicated that the patient had actually had a bone marrow aspiration biopsy in 2014. 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 The patient had 2 M protein's with total quantitation in the low 2 g/dL range. However as the patient was asymptomatic and hemoglobin and WBC had been stable in a safe range, she had been followed with observation. Her current counts definitely represent a significant change from her basel ine. This could indicate progression of one or both of her underlying bone marrow conditions. Transient marrow compromise from her acute illness also remains in differential. Labs for deficiency states are negative. Await protein electrophoresis studies to check for any progression of her monoclonal gammopathy. Continue supportive treatment in the meantime with plan to transfuse to keep hemoglobin greater than 7. As it is now known that the patient has a history of MDS with 4% blasts, GCSF will be discontinued in case the patient has had progression. Current Visit: Yes Status: Acute Code(s): D61.818 - OTHER PANCYTOPENIA SNOMED Code(s): 653728178 (2) Atrial fibrillation with RVR Narrative/Plan: Platelet counts remained well above 50,000, and stable in the 120-1 30,000 range. Continue anticoagulation as long as platelets are above 50,000. Current Visit: Yes Status: Acute Code(s): I48.91 - UNSPECIFIED ATRIAL FIBRILLATION SNOMED Code(s): 581220974910750 Plan: acute respiratory failureThe patient continues to have significant shortness of breath. At this time this appears to be due to CHF due to diastolic dysfunction, along with probable COPD exacerbation. Defer to the admitting service and other consultants for continued management.
[2020-08-03] MEDS: LATANOPROST 0.005% OPHTH DROPS 2.5 ML BTL BOTH EYES SCH (21:36)
[2020-08-04] MEDS: PANTOPRAZOLE 40 MG TABLET PO SCH (06:32)
[2020-08-04] MEDS: LEVOTHYROXINE 112 MCG TAB PO SCH (06:32)
--- NOTE | 2020-08-04 08:54 | XR ---
EXAMINATION TYPE: XR chest 1V portable DATE OF EXAM: 08/04/2020 Comparison: 08/01/2020 Clinical History: 84 year-old female follow-up CHF Findings: Heart borderline enlarged. Diffuse interstitial opacity. Increasing focal right midlung opacity and c ontinued small effusions. Hyperinflation. Impression: 1. CHF with mild interstitial edema superimposed on COPD. Developing more focal opacity at the right midlung could represent an area of developing pulmonary edema or infiltrate. 2. Continued small effusions.
[2020-08-04] MEDS: IPRATROPIUM-ALBUTEROL 3 ML NEB INHALATION SCH ×4 (09:01→20:06)
[2020-08-04] MEDS: BUDESONIDE 0.5 MG/2 ML NEBU INHALATION SCH ×2 (09:01→20:06)
[2020-08-04] MEDS: FERROUS SULFATE 325 MG TAB PO SCH (09:13)
[2020-08-04] MEDS: CHOLECALCIFEROL 1,000 UNIT TAB PO SCH (09:13)
[2020-08-04] MEDS: METOPROLOL TARTRATE 25 MG TAB PO SCH ×2 (09:14→20:17)
[2020-08-04] MEDS: FUROSEMIDE 10 MG/ML 4 ML VIAL IV SCH (09:14)
[2020-08-04] MEDS: FILGRASTIM-SNDZ 300 MCG/0.5 ML SYRINGE SQ SCH (09:14)
[2020-08-04] MEDS: APIXABAN 2.5 MG TABLET PO SCH ×2 (09:14→20:15)
[2020-08-04] MEDS: DORZOLAMIDE HCL 2% DROPS 10 ML BTL BOTH EYES SCH ×2 (09:14→20:21)
[2020-08-04] MEDS: CYANOCOBALAMIN 500 MCG TAB PO SCH (09:14)
[2020-08-04 09:34] LABS: Anisocytosis Slight; HCT 24.3 % (34.0-46.0); HGB 7.7 gm/dL (11.4-16.0); Hypochromasia Moderate; MCH 29.7 pg (25.0-35.0); MCHC 31.6 g/dL (31.0-37.0); MCV 93.8 fL (80.0-100.0); Macrocytosis Slight; Platelet Count 132 k/uL (150-450); Poikilocytosis Slight; RBC 2.59 m/uL (3.80-5.40); RDW 18.8 % (11.5-15.5)
[2020-08-04 09:36] LABS: Calcium 8.7 mg/dL (8.4-10.2); Potassium 3.8 mmol/L (3.5-5.1)
[2020-08-04 10:17] LABS: Band Neutrophils % 10 %; Basophils # (M) 0.04 k/uL (0-0.2); Lymphocytes # (M) 0.38 k/uL (1.0-4.8); Metamyelocytes # (M) 0.02 k/uL (0); Metamyelocytes % 1 %; Monocytes # (M) 0.04 k/uL (0-1.0); Myelocytes # (M) 0.02 k/uL (0); Myelocytes % 1 %; Neutrophils % (M) 54 %
[2020-08-04 10:18] LABS: Blast Cells # (M) 0.14 k/uL (0); Large Platelets Present; Nucleated Red Blood Cells 0 /100 WBC (0-0); Total Cells Counted 200; Toxic Granulation Present
--- NOTE | 2020-08-04 10:19 | P.PN ---
Subjective Patient is a pleasant 84-year-old the female with history of sarcoidosis and multiple other medical problems doesn't use any oxygen came in with complains of shortness of breath. Patient was also in atrial fibrillation was started on Cardizem drip patient had a CAT scan of the chest which appear like patient has bilateral pulmonary edema along with the some interstitial changes patient was a given Lasix was evaluated by cardiology. Cardizem is being discontinued at this time and patient will be started on beta hector. Patient also has pancytopenia with predominant blasts cells, oncology was consulted. 08/03/2020 Patient day saturations are borderline on 2-3 L of oxygen patient is wheezing on exam can be cardiac asthma can be COPD examination patient was started on inhaled steroids patient is already and albuterol ipratropium which will be continued patient can use to be on IV Lasix. Patient was evaluated by oncology for pancytopenia, lab work up was ordered for pancytopenia although they're not recommending any bone marrowaspiration as she may have some amount of myelodysplasia and considering her age there will not be any significant further intervention at this time. 08/04/2020 Patient is saturating well and the her wheezing completely resolved her creatinine is worse and because of which I'll switch her Lasix to oral rate patient repeat chest x-ray showing infiltrate highly suspicious for pneumonia although patient doesn't have any clinical signs or symptoms of pneumonia. Patient will be started on Rocephin probably will discharge from total of 5 days of antibiotics. Patient probably can be discharged tomorrow if she can use to do well and if her creatinine remained stable her creatinine went up today to 1.3. Constitutional: Denied any fatigue denied any fever. Cardio vascular: denied any chest pain, palpitations Gastrointestinal denied any nausea vomiting Pulmonary: Shortness of breath significantly improved Neurologic denied any new focal deficits All inpatient medications were reviewed and appropriate changes in these medications as dictated in the interval history and assessment and plan. Objective - Vital Signs Vital signs: Vital Signs Temp 98.1 F 08/04/20 04:05 Pulse 104 H 08/04/20 09:21 Resp 18 08/04/20 04:05 BP 108/64 08/04/20 04:05 Pulse Ox 91 L 08/04/20 04:05 Intake & Output 08/03/20 08/04/20 08/04/20 18:59 06:59 18:59 Intake Total 218 240 Output Total 700 1400 Balance -482 -1400 240 Weight 62.1 kg Intake: Oral 218 240 Output: Urine 700 1400 Other: Voiding Method Toilet - Exam PHYSICAL EXAMINATION: GENERAL: The patient is alert and oriented x3, not in any acute distress. Well developed, well nourished. HEENT: Pupils are round and equally reacting to light. EOMI. No scleral icterus. No conjunctival pallor. Normocephalic, atraumatic. No pharyngeal erythema. No thyromegaly. CARDIOVASCULAR: S1 and S2 present. No murmurs, rubs, or gallops. PULMONARY: Wheezing compared to resolved no crackles were appreciated. ABDOMEN: Soft, nontender, nondistended, normoactive bowel sounds. No palpable organomegaly. MUSCULOSKELETAL: No joint swelling or deformity. EXTREMITIES: No cyanosis, clubbing, or pedal edema. NEUROLOGICAL: Gross neurological examination did not reveal any focal deficits. SKIN: No rashes. - Labs CBC & Chem 7: 08/04/20 08:35 08/04/20 08:35 Labs: Abnormal Lab Results - Last 24 Hours (Table) 08/03/20 08/03/20 08/04/20 Range/Units 06:57 06:57 08:35 WBC 2.0 L (3.8-10.6) k/uL RBC 2.59 L (3.80-5.40) m/uL Hgb 7.7 L (11.4-16.0) gm/dL Hct 24.3 L (34.0-46.0) % RDW 18.8 H (11.5-15.5) % Plt Count 132 L (150-450) k/uL Haptoglobin 207.0 H (31.2-198.0) mg/dL Carbon Dioxide (22-30) mmol/L BUN (7-17) mg/dL Creatinine (0.52-1.04) mg/dL Glucose (74-99) mg/dL Iron 23 L (50-170) ug/dL TIBC 176 L (228-460) ug/dL Ferritin 569.7 H (10.0-291.0) ng/mL Vitamin B12 2177.0 H (200.0-944.0) pg/mL Free [place] LC, Quant 3.93 H (0.33-1.94) mg/dL Free Lambda LC, Quant 55.40 H (0.57-2.63) mg/dL 08/04/20 Range/Units 08:35 WBC (3.8-10.6) k/uL RBC (3.80-5.40) m/uL Hgb (11.4-16.0) gm/dL Hct (34.0-46.0) % RDW (11.5-15.5) % Plt Count (150-450) k/uL Haptoglobin (31.2-198.0) mg/dL Carbon Dioxide 31 H (22-30) mmol/L BUN 34 H (7-17) mg/dL Creatinine 1.30 H (0.52-1.04) mg/dL Glucose 134 H (74-99) mg/dL Iron (50-170) ug/dL TIBC (228-460) ug/dL Ferritin (10.0-291.0) ng/mL Vitamin B12 (200.0-944.0) pg/mL Free [place] LC, Quant (0.33-1.94) mg/dL Free Lambda LC, Quant (0.57-2.63) mg/dL Microbiology - Last 24 Hours (Table) 08/03/20 20:00 Gram Stain - Preliminary Sputum Sputum Culture - Preliminary 08/01/20 20:58 Blood Culture - Preliminary Blood No Growth after 48 hours Assessment and Plan Plan: -Shortness of breath: Probably secondary to congestive heart failure chronic diastolic dysfunction with acute exacerbation her a heart failure probably precipitated by atrial fibrillation. Patient was switched to oral Lasix starti ng tomorrow -Possibility of pneumonia right middle lobe patient was started on Rocephin -Acute hypoxic respiratory failure: Secondary to CHF, improved -COPD with probable mild acute exacerbation, patient will be started on inhaled steroids. -Sarcoidosis -Congestive heart failure possible chronic diastolic dysfunction with acute exacerbation echocardiogram showed normal ejection fraction. Patient had a normal EF in the past -Proximal A. fib new onset: Patient was started on beta hector patient is presently rate controlled Cardizem was discontinued and patient will be initiated on oral anticoagulation 50 Eliquis -Bilateral pleural effusions secondary to CHF improved now -Pancytopenia with predominant blasts cells: Oncology evaluated the patient. Pancytopenia was ordered but not recommending any bone marrow biopsy as mentioned above , patient probably has Myelodysplasia
--- NOTE | 2020-08-04 13:01 | P.PN ---
Subjective Progress Note Date: 08/04/20 Principal diagnosis: Pancytopenia Appears she may have some progression in her myeloma Objective - Vital Signs Vital signs: Vital Signs Temp 98.3 F 08/04/20 08:00 Pulse 104 H 08/04/20 09:21 Resp 18 08/04/20 08:00 BP 121/65 08/04/20 08:00 Pulse Ox 100 08/04/20 08:00 Intake & Output 08/03/20 08/04/20 08/04/20 18:59 06:59 18:59 Intake Total 218 240 Output Total 700 1400 Balance -482 -1400 240 Weight 62.1 kg Intake: Oral 218 240 Output: Urine 700 1400 Other: Voiding Method Toilet Toilet - Exam - Constitutional General appearance: Present: mild distress - EENT Eyes: Present: EOMI, PERRLA ENT: Present: hearing grossly normal, normal oropharynx - Respiratory Respiratory: bilateral: rales, prolonged expiration - Cardiovascular Rhythm: irregularly irregular Heart sounds: normal: S1, S2 - Gastrointestinal General gastrointestinal: Present: normal bowel sounds, soft - Neurologic Neurologic: Present: CNII-XII intact - Musculoskeletal Musculoskeletal: Present: generalized weakness, strength equal bilaterally - Psychiatric Psychiatric: Present: A&O x's 3, appropriate affect - Labs CBC & Chem 7: 08/04/20 08:35 08/04/20 08:35 Labs: Abnormal Lab Results - Last 24 Hours (Table) 08/03/20 08/03/20 08/03/20 Range/Units 06:57 06:57 06:57 WBC (3.8-10.6) k/uL RBC (3.80-5.40) m/uL Hgb (11.4-16.0) gm/dL Hct (34.0-46.0) % RDW (11.5-15.5) % Plt Count (150-450) k/uL Blast Cells % % Neutrophils # (Manual) (1.3-7.7) k/uL Lymphocytes # (Manual) (1.0-4.8) k/uL Metamyelocytes # (Man) (0) k/uL Myelocytes # (Manual) (0) k/uL Blast Cells # (Man) (0) k/uL Haptoglobin 207.0 H (31.2-198.0) mg/dL Carbon Dioxide (22-30) mmol/L BUN (7-17) mg/dL Creatinine (0.52-1.04) mg/dL Glucose (74-99) mg/dL Iron 23 L (50-170) ug/dL TIBC 176 L (228-460) ug/dL Ferritin 569.7 H (10.0-291.0) ng/mL Vitamin B12 2177.0 H (200.0-944.0) pg/mL RBC Folate 998 H (280 - 791) ng/mL Free [place] LC, Quant 3.93 H (0.33-1.94) mg/dL Free Lambda LC, Quant 55.40 H (0.57-2.63) mg/dL 08/04/20 08/04/20 Range/Units 08:35 08:35 WBC 2.0 L (3.8-10.6) k/uL RBC 2.59 L (3.80-5.40) m/uL Hgb 7.7 L (11.4-16.0) gm/dL Hct 24.3 L (34.0-46.0) % RDW 18.8 H (11.5-15.5) % Plt Count 132 L (150-450) k/uL Blast Cells % 7 H* % Neutrophils # (Manual) 1.20 L (1.3-7.7) k/uL Lymphocytes # (Manual) 0.38 L (1.0-4.8) k/uL Metamyelocytes # (Man) 0.02 H (0) k/uL Myelocytes # (Manual) 0.02 H (0) k/uL Blast Cells # (Man) 0.14 H (0) k/uL Haptoglobin (31.2-198.0) mg/dL Carbon Dioxide 31 H (22-30) mmol/L BUN 34 H (7-17) mg/dL Creatinine 1.30 H (0.52-1.04) mg/dL Glucose 134 H (74-99) mg/dL Iron (50-170) ug/dL TIBC (228-460) ug/dL Ferritin (10.0-291.0) ng/mL Vitamin B12 (200.0-944.0) pg/mL RBC Folate (280 - 791) ng/mL Free [place] LC, Quant (0.33-1.94) mg/dL Free Lambda LC, Quant (0.57-2.63) mg/dL Microbiology - Last 24 Hours (Table) 08/03/20 20:00 Gram Stain - Preliminary Sputum Sputum Culture - Preliminary 08/01/20 20:58 Blood Culture - Preliminary Blood No Growth after 48 hours Assessment and Plan Plan: Assessment and Plan Pancytopenia 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 - We did receive her outside hematology notes and reviewed, [place]. 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 The patient had 2 M protein's with total quantitation in the low 2 g/dL range. Although was on observation as her counts remained within safe ranges. - This admission appears to be noted change in her labs from her baseline. This could indicate progression of one or both of her underlying bone marrow conditions. Transient marrow compromise from her acute illness also remains in differential. Labs for deficiency states are negative. - Treatment dose of dex 40mg po daily x4 Atrial fibrillation with RVR - Symptomatic - Cardiology Acute Hypoxic Respiratory failure: - Continues to be significantly SOB - Pulm following - CHF (Diastolic) COPD exacerbation - A-fib with RVR - Symptomatic Anemia Physician Attest: I have completed the full history and physical and agree with above dictation, dictated as a scribe.
[2020-08-04 14:31] LABS: Albumin 2.87 g/dL (3.80-4.90); Gamma Globulin 1.74 g/dL (0.70-1.50)
--- NOTE | 2020-08-04 14:45 | P.PN ---
Subjective Progress Note Date: 08/04/20 Principal diagnosis: Shortness of breath, 60 to atrial fibrillation with RVR and acute exacerbation of CHF 84-year-old white female patient with known history of inactive quiescent sarcoidosis, history of heavy tobacco use, however it never actually diagnosed with COPD, previous history of pneumonia, hypothyroidism, who came into the hospital on 08/01/2020 for evaluation of worsening shortness of breath. Patient denied any chest pain or chest discomfort, no fever, no chills. No cough, patient was found to be in A. fib with RVR, initially placed on Cardizem drip for rate control, which was later weaned off, and patient was started on beta blockers per cardiology, and oral anticoagulation in the form of Eliquis. Heart the heart rate is much better controlled, breathing easier, her chest x-ray showed small to moderate left pleural effusion and adjacent atelectasis. CT chest without contrast showed moderate to severe emphysema with findings suggestive of small airway disease, and bilateral hazy opacities representing edema and atelectasis, left lower lobe platelike opacity that could represent rounded atelectasis. Small right pleural effusion. She was also quite pancytopenic on admission, white blood cell count of 1.2, hemoglobin is 7.5, platelet count of 143, d-dimer was significantly elevated at 25.9, however CTA chest showed no evidence of pulmonary embolism, he did show emphysema, diffuse ground glass interstitial pulmonary infiltrates noted to congestive heart failure, bilateral pleural effusions and basilar pulmonary infiltrates and atelectasis, he 6 compression fracture was unchanged. Troponins were less than 0.0123, proBNP was 11,300, TSH was within normal limits at 2.120, urinalysis was negative for any sign of infection, she is quite dyspneic, tachypneic she was started on IV Lasix, she is in -720 ML fluid balance over the last 24 hours, she is breathing easier, although still dyspneic with any light exertion and even with speaking. She's been get not to the bedside commode, tolerating activity fairly well. Today's lab work has been reviewed showing white blood cell count of 2.1, hemoglobin of 7.2, blasts 2%, severely limits, BUN of 31 creatinine is 1.09, TSH was within normal limits. Hematology is following regarding the results of the abnormal CBC On 08/04/2020 patient seen in follow-up on selective care unit. She is awake and alert, in no acute distress, breathing easier, she is on 2 L of oxygen the pulse ox of 95%, vital signs are stable, she has been afebrile. She's been diuresed, she's been transitioned to oral diuretics currently at 40 mg twice daily. He is in -1.8 L fluid balance over the last 24 hours, lower extremity edema has improved, breathing has improved. Chest x-ray showing continue small pleural effusions, and CHF with mild interstitial edema. Patient continues on empiric antibiotics. White blood cell count is improving, to 2.0, hemoglobin is 7.7, patient continues on Cozaar 0, hematology is following, BUN is 34, creatinine is 1.3. Sputum cultures have shown no growth. Objective - Vital Signs Vital signs: Vital Signs Temp 98.3 F 08/04/20 08:00 Pulse 100 08/04/20 13:05 Resp 20 08/04/20 12:00 BP 117/54 08/04/20 12:00 Pulse Ox 95 08/04/20 12:00 Intake & Output 08/03/20 08/04/20 08/04/20 18:59 06:59 18:59 Intake Total 218 240 Output Total 700 1400 Balance -482 -1400 240 Weight 62.1 kg Intake: Oral 218 240 Output: Urine 700 1400 Other: Voiding Method Toilet Toilet - Exam GENERAL EXAM: Alert, very pleasant, 84-year-old female on 2 L of oxygen a pulse ox of 95% comfortable in no apparent distress. HEAD: Normocephalic/atraumatic. EYES: Normal reaction of pupils, equal size. Conjunctiva pink, sclera white. NOSE: Clear with pink turbinates. THROAT: No erythema or exudates. NECK: No masses, no JVD, no thyroid enlargement, no adenopathy. CHEST: No chest wall deformity. Symmetrical expansion. LUNGS: Equal air entry with no crackles, wheeze, rhonchi or dullness. CVS: Irregular rate and rhythm, normal S1 and S2, no gallops, no murmurs, no rubs ABDOMEN: Soft, nontender. No hepatosplenomegaly, normal bowel sounds, no guarding or rigidity. EXTREMITIES: No clubbing, mild pretibial edema, no cyanosis, 2+ pulses and upper and lower extremities. MUSCULOSKELETAL: Muscle strength and tone normal. SPINE: No scoliosis or deformity SKIN: No rashes CENTRAL NERVOUS SYSTEM: Alert and oriented -3. No focal deficits, tone is normal in all 4 extremities. PSYCHIATRIC: Alert and oriented -3. Appropriate affect. Intact judgment and insight. - Labs CBC & Chem 7: 08/04/20 08:35 08/04/20 08:35 Labs: Abnormal Lab Results - Last 24 Hours (Table) 08/03/20 08/03/20 08/04/20 Range/Units 06:57 06:57 08:35 WBC 2.0 L (3.8-10.6) k/uL RBC 2.59 L (3.80-5.40) m/uL Hgb 7.7 L (11.4-16.0) gm/dL Hct 24.3 L (34.0-46.0) % RDW 18.8 H (11.5-15.5) % Plt Count 132 L (150-450) k/uL Blast Cells % 7 H* % Neutrophils # (Manual) 1.20 L (1.3-7.7) k/uL Lymphocytes # (Manual) 0.38 L (1.0-4.8) k/uL Metamyelocytes # (Man) 0.02 H (0) k/uL Myelocytes # (Manual) 0.02 H (0) k/uL Blast Cells # (Man) 0.14 H (0) k/uL Carbon Dioxide (22-30) mmol/L BUN (7-17) mg/dL Creatinine (0.52-1.04) mg/dL Glucose (74-99) mg/dL Albumin (PEP) 2.87 L (3.80-4.90) g/dL Nkska-9-Dcohcxujk 0.48 H (0.10-0.40) g/dL Beta Globulins 0.47 L (0.60-1.30) g/dL Gamma Globulins 1.74 H (0.70-1.50) g/dL RBC Folate 998 H (280 - 791) ng/mL Free Lambda LC, Quant 55.40 H (0.57-2.63) mg/dL 08/04/20 Range/Units 08:35 WBC (3.8-10.6) k/uL RBC (3.80-5.40) m/uL Hgb (11.4-16.0) gm/dL Hct (34.0-46.0) % RDW (11.5-15.5) % Plt Count (150-450) k/uL Blast Cells % % Neutrophils # (Manual) (1.3-7.7) k/uL Lymphocytes # (Manual) (1.0-4.8) k/uL Metamyelocytes # (Man) (0) k/uL Myelocytes # (Manual) (0) k/uL Blast Cells # (Man) (0) k/uL Carbon Dioxide 31 H (22-30) mmol/L BUN 34 H (7-17) mg/dL Creatinine 1.30 H (0.52-1.04) mg/dL Glucose 134 H (74-99) mg/dL Albumin (PEP) (3.80-4.90) g/dL Wljfj-0-Dxvgdketc (0.10-0.40) g/dL Beta Globulins (0.60-1.30) g/dL Gamma Globulins (0.70-1.50) g/dL RBC Folate (280 - 791) ng/mL Free Lambda LC, Quant (0.57-2.63) mg/dL Microbiology - Last 24 Hours (Table) 08/03/20 20:00 Gram Stain - Preliminary Sputum Sputum Culture - Preliminary 08/01/20 20:58 Blood Culture - Preliminary Blood No Growth after 48 hours Assessment and Plan Plan: Assessment: #1. Acute exacerbation of congestive heart failure with diastolic dysfunction, echocardiogram showed preserved left ventricular systolic function with an EF of 60-65%, mild aortic regurg, mild mitral regurg, mild tricuspid regurg and mild pulmonary hypertension with right-sided pressure of 41.7 mmHg #2. History of inactive quiescent sarcoidosis #3. 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 Atrial fibrillation with RVR, currently better controlled #5. History of COPD #6. Previous history of tobacco use currently in remission, patient has had a 30-35 pack years of smoking #7. Previous episodes of pneumonia #8. Hypothyroidism #9. History of pleurisy Plan: Continue with diuretics, patient has diuresis she is breathing easier, has been transitioned to oral diuretics, continue antibiotics, his breathing easier today. Continue nebulized bronchodilators, culture data remains negative thus far. Today's chest x-ray has been noted. Continue current medical treatment, will follow I performed a history & physical examination of the patient and discussed their management with my nurse practitioner, Shira Langford. I reviewed the nurse practitioner's note and agree with the documented findings and plan of care. Lung sounds are positive for diminished breath sounds. The findings and the impression was discussed with the patient. I attest to the documentation by the nurse practitioner. Time with Patient: Less than 30
--- NOTE | 2020-08-04 15:04 | P.PN ---
Subjective HISTORY OF PRESENTING ILLNESS This is a pleasant 84-year-old occasion female past medical history significant for mitral and aortic regurgitation, sarcoidosis and hypothyroidism. She follows in the office with Dr. Armando. She is seen and examined sitting up in bed in no acute distress. Overall she feels like her breathing has improved. She continues to be in atrial fibrillation with rapid ventricular rates. Lopressor was decreased yesterday due to junctional bradycardia. Blood pressure 121/65 heart rate 130 afebrile and maintaining oxygen saturation on room air. Laboratory data reviewed, WBC 2.0, hemoglobin 7.7, platelets 132, sodium 139, potassium 3.8, creatinine 1.3. This mornings chest xray revealed mild interstitial edema superimposed on COPD, developing focal opacity at the right midlung. 24-hour output 2100 ml. Telemetry tracings indicate sinus mechanism with frequent PAC's. PHYSICAL EXAMINATION CONSTITUTIONAL: No apparent distress. HEENT: Head is normocephalic. Pupils are equal, round. Sclerae anicteric. Mucous membranes of the mouth are moist. No JVD. No carotid bruit. CHEST EXAMINATION: Diminished bilaterally. No chest wall tenderness is noted on palpation or with deep breathing. HEART EXAMINATION: Irregular rate and rhythm. S1, S2 heard. Systolic ejection murmur at the left sternal border, no gallops or rub. EXTREMITIES: 2+ peripheral pulses, trace bilateral lower extremity edema and no calf tenderness. ASSESSMENT Paroxysmal atrial fibrillation with rapid ventricular rate, new onset Acute diastolic heart failure Pancytopenia Pleural effusions Acute kidney injury Valvular heart disease Sarcoidosis Hypothyroidism PLAN Increase beta hector to 25 mg twice a day. She has been transitioned to oral diuretics per primary care team. Nurse Practitioner note has been reviewed, I agree with a documented findings and plan of care. Patient was seen and examined. Objective - Vital Signs Vital signs: Vital Signs Temp 98.1 F 08/04/20 04:05 Pulse 104 H 08/04/20 09:02 Resp 18 08/04/20 04:05 BP 108/64 08/04/20 04:05 Pulse Ox 91 L 08/04/20 04:05 Intake & Output 08/03/20 08/04/20 08/04/20 18:59 06:59 18:59 Intake Total 218 240 Output Total 700 1400 Balance -482 -1400 240 Weight 62.1 kg Intake: Oral 218 240 Output: Urine 700 1400 Other: Voiding Method Toilet - Labs CBC & Chem 7: 08/04/20 08:35 08/04/20 08:35 Labs: Abnormal Lab Results - Last 24 Hours (Table) 08/03/20 08/03/20 Range/Units 06:57 06:57 Haptoglobin 207.0 H (31.2-198.0) mg/dL Iron 23 L (50-170) ug/dL TIBC 176 L (228-460) ug/dL Ferritin 569.7 H (10.0-291.0) ng/mL Vitamin B12 2177.0 H (200.0-944.0) pg/mL Free [place] LC, Quant 3.93 H (0.33-1.94) mg/dL Free Lambda LC, Quant 55.40 H (0.57-2.63) mg/dL Microbiology - Last 24 Hours (Table) 08/03/20 20:00 Gram Stain - Preliminary Sputum Sputum Culture - Preliminary 08/01/20 20:58 Blood Culture - Preliminary Blood No Growth after 48 hours
[2020-08-04] MEDS ORDERED: FUROSEMIDE 40 MG TAB PO SCH (16:00)
[2020-08-04 18:30] LABS: Uric Acid 7.8 mg/dL (3.7-7.4)
[2020-08-04] MEDS: dexAMETHasone 4 MG TAB PO SCH (20:16)
[2020-08-04] MEDS: LATANOPROST 0.005% OPHTH DROPS 2.5 ML BTL BOTH EYES SCH (20:22)
[2020-08-05] MEDS: LEVOTHYROXINE 112 MCG TAB PO SCH (06:26)
[2020-08-05] MEDS ORDERED: PANTOPRAZOLE 40 MG TABLET PO SCH (07:30)
[2020-08-05] MEDS: APIXABAN 2.5 MG TABLET PO SCH (08:21)
[2020-08-05] MEDS: dexAMETHasone 4 MG TAB PO SCH (08:21)
[2020-08-05] MEDS: FERROUS SULFATE 325 MG TAB PO SCH (08:21)
[2020-08-05] MEDS: METOPROLOL TARTRATE 25 MG TAB PO SCH (08:21)
[2020-08-05] MEDS: CHOLECALCIFEROL 1,000 UNIT TAB PO SCH (08:21)
[2020-08-05] MEDS: IPRATROPIUM-ALBUTEROL 3 ML NEB INHALATION SCH ×2 (08:36→12:14)
[2020-08-05] MEDS: BUDESONIDE 0.5 MG/2 ML NEBU INHALATION SCH (08:36)
[2020-08-05 08:53] LABS: Methylmalonic Acid 0.26 umol/L (<0.40)
[2020-08-05 09:08] LABS: Albumin 3.3 g/dL (3.5-5.0); Calcium 8.9 mg/dL (8.4-10.2); Phosphorus 4.7 mg/dL (2.5-4.5); Potassium 3.9 mmol/L (3.5-5.1); Total Bilirubin 0.6 mg/dL (0.2-1.3); Total Protein 7.1 g/dL (6.3-8.2)
[2020-08-05 09:14] LABS: Anisocytosis Slight; HCT 22.8 % (34.0-46.0); HGB 7.3 gm/dL (11.4-16.0); Hypochromasia Slight; MCH 29.8 pg (25.0-35.0); MCHC 32.2 g/dL (31.0-37.0); MCV 92.7 fL (80.0-100.0); Mean Platelet Volume 12.9; Platelet Count 131 k/uL (150-450); Poikilocytosis Slight; RBC 2.46 m/uL (3.80-5.40); RDW 18.8 % (11.5-15.5); WBC 2.3 k/uL (3.8-10.6)
[2020-08-05 10:04] LABS: Band Neutrophils % 14 %; Blast Cells # (M) 0.12 k/uL (0); Lymphocytes # (M) 0.28 k/uL (1.0-4.8); Metamyelocytes # (M) 0.02 k/uL (0); Metamyelocytes % 1 %; Monocytes # (M) 0.02 k/uL (0-1.0); Neutrophils % (M) 67 %; Nucleated Red Blood Cells 0 /100 WBC (0-0); Total Cells Counted 100
[2020-08-05 10:05] LABS: Toxic Granulation Present
[2020-08-05 10:06] LABS: Large Platelets Present
[2020-08-05] MEDS ORDERED: FUROSEMIDE 40 MG TAB PO SCH (10:16)
[2020-08-05 11:00] VITALS: RESP 18; TEMP 97.7
[2020-08-05] MEDS: CYANOCOBALAMIN 500 MCG TAB PO SCH (12:09)
[2020-08-05] MEDS: DORZOLAMIDE HCL 2% DROPS 10 ML BTL BOTH EYES SCH (12:38)
--- NOTE | 2020-08-05 12:46 | P.DS ---
Providers Date of admission: 08/01/20 16:31 Attending physician: Oscar Ricks Consults: 08/01/20 17:07 Consult Physician Stat Consulting Provider: Kali Huston Consult Reason/Comments: SOB Do you want consulting provider notified?: Yes Placement Type Exists?: Yes 08/01/20 17:08 Consult Physician Stat Consulting Provider: Pako Whiting Consult Reason/Comments: afib Do you want consulting provider notified?: Yes Placement Type Exists?: Yes 08/01/20 19:41 Consult Physician Routine Consulting Provider: Clayton Last Consult Reason/Comments: pancytopenia Do you want consulting provider notified?: Yes, Notify in am Primary care physician: Stated None Hospital Course: 84-year-old the female with history of sarcoidosis and multiple other medical problems doesn't use any oxygen came in with complains of shortness of breath. Patient was also in atrial fibrillation was started on Cardizem drip patient had a CAT scan of the chest which appear like patient has bilateral pulmonary edema along with the some interstitial changes patient was a given Lasix was evaluated by cardiology. Cardizem is being discontinued at this time and patient will be started on beta hector. Patient also has pancytopenia with predominant blasts cells, oncology was consulted. 08/03/2020 Patient day saturations are borderline on 2-3 L of oxygen patient is wheezing on exam can be cardiac asthma can be COPD examination patient was started on inhaled steroids patient is already and albuterol ipratropium which will be continued patient can use to be on IV Lasix. Patient was evaluated by oncology for pancytopenia, lab work up was ordered for pancytopenia although they're not recommending any bone marrowaspiration as she may have some amount of myelodysplasia and considering her age there will not be any significant further intervention at this time. 08/04/2020 Patient is saturating well and the her wheezing completely resolved her creatinine is worse and because of which I'll switch her Lasix to oral rate patient repeat chest x-ray showing infiltrate highly suspicious for pneumonia although patient doesn't have any clinical signs or symptoms of pneumonia. Patient will be started on Rocephin probably will discharge from total of 5 days of antibiotics. Patient probably can be discharged tomorrow if she can use to do well and if her creatinine remained stable her creatinine went up today to 1.3. 08/05/2020 Patient's creatinine remained stable patient is saturating well, we will wean her off oxygen, if patient is able to ambulate without oxygen patient will be discharged today. Patient will be given 4 more days of antibiotics. PHYSICAL EXAMINATION: GENERAL: The patient is alert and oriented x3, not in any acute distress. Well developed, well nourished. HEENT: Pupils are round and equally reacting to light. EOMI. No scleral icterus. No conjunctival pallor. Normocephalic, atraumatic. No pharyngeal erythema. No thyromegaly. CARDIOVASCULAR: S1 and S2 present. No murmurs, rubs, or gallops. PULMONARY: Mildly diminished air entry into bilateral lung queen. ABDOMEN: Soft, nontender, nondistended, normoactive bowel sounds. No palpable organomegaly. MUSCULOSKELETAL: No joint swelling or deformity. EXTREMITIES: No cyanosis, clubbing, or pedal edema. NEUROLOGICAL: Gross neurological examination did not reveal any focal deficits. SKIN: No rashes. Assessment and Plan Plan: -Shortness of breath: Probably secondary to congestive heart failure chronic diastolic dysfunction with acute exacerbation her a heart failure probably precipitated by atrial fibrillation. -Possibility of pneumonia right middle lobe patient will be discharged on for more days of antibiotics as mentioned above -Acute hypoxic respiratory failure: Secondary to CHF, improved -COPD with probable mild acute exacerbation, patient will be started on inhaled steroids. -Sarcoidosis -Congestive heart failure possible chronic diastolic dysfunction with acute ex acerbation echocardiogram showed normal ejection fraction. -Proximal A. fib new onset: Patient was started on beta hector oral anticoagulation with Eliquis -Bilateral pleural effusions secondary to CHF improved now -Pancytopenia with predominant blasts cells: Oncology evaluated the patient. Pancytopenia was ordered but not recommending any bone marrow biopsy as mentioned above , patient probably has Myelodysplasia a follow-up with oncology as an outpatient. Plan - Discharge Summary Discharge Rx Participant: No New Discharge Prescriptions: New Apixaban [Eliquis] 2.5 mg PO BID #30 tablet Furosemide [Lasix] 40 mg PO BID@0900,1600 #60 tab Metoprolol Tartrate [Lopressor] 25 mg PO BID #60 tab Budesonide [Pulmicort] 0.5 mg INHALATION RT-BID #100 ml Continue Cyanocobalamin [Vitamin B-12] 1,000 mcg PO DAILY Cholecalciferol [Vitamin D3 (25 Mcg = 1000 Iu)] 5,000 unit PO DAILY Albuterol Nebulized [Ventolin Nebulized] 2.5 mg INHALATION Q6H PRN PRN Reason: Shortness Of Breath Latanoprost [Xalatan 0.005%] 1 drop BOTH EYES HS Vit C/E/Zn/Coppr/Lutein/Zeaxan [Preservision Areds 2 Softgel] 1 tab PO DAILY Dorzolamide HCl [Trusopt 2%] 1 drop BOTH EYES BID Levothyroxine Sodium [Synthroid] 112 mcg PO DAILY Ferrous Sulfate [Iron (65 MG Elemental)] 325 mg PO DAILY Discharge Medication List Albuterol Nebulized [Ventolin Nebulized] 2.5 mg INHALATION Q6H PRN 12/22/15 [History] Cholecalciferol [Vitamin D3 (25 Mcg = 1000 Iu)] 5,000 unit PO DAILY 12/22/15 [History] Cyanocobalamin [Vitamin B-12] 1,000 mcg PO DAILY 12/22/15 [History] Latanoprost [Xalatan 0.005%] 1 drop BOTH EYES HS 12/22/15 [History] Dorzolamide HCl [Trusopt 2%] 1 drop BOTH EYES BID 08/01/20 [History] Ferrous Sulfate [Iron (65 MG Elemental)] 325 mg PO DAILY 08/01/20 [History] Levothyroxine Sodium [Synthroid] 112 mcg PO DAILY 08/01/20 [History] Vit C/E/Zn/Coppr/Lutein/Zeaxan [Preservision Areds 2 Softgel] 1 tab PO DAILY 08/01/20 [History] Apixaban [Eliquis] 2.5 mg PO BID #30 tablet 08/05/20 [Rx] Budesonide [Pulmicort] 0.5 mg INHALATION RT-BID #100 ml 08/05/20 [Rx] Furosemide [Lasix] 40 mg PO BID@0900,1600 #60 tab 08/05/20 [Rx] Metoprolol Tartrate [Lopressor] 25 mg PO BID #60 tab 08/05/20 [Rx] Follow up Appointment(s)/Referral(s): Clayton Last MD [STAFF PHYSICIAN] - 1 Week Pako Whiting MD [STAFF PHYSICIAN] - 1 Week Kali Huston DO [Doctor of Osteopathic Medicine] - 1 Week Kali Wilkerson MD [REFERRING] - 3 Days Ambulatory/Diagnostic Orders: Basic Metabolic Panel [LAB.AMB] Time Frame: 3 Days, Location: None Selected
--- NOTE | 2020-08-05 12:54 | P.PN ---
Subjective HISTORY OF PRESENTING ILLNESS This is a pleasant 84-year-old occasion female past medical history significant for mitral and aortic regurgitation, sarcoidosis and hypothyroidism. She follows in the office with Dr. Armando. She is seen and examined sitting up in bed in no acute distress.She has converted to sinus mechanism with rates in the 70s. Bl ood pressure 117/62 and maintaining oxygen saturation on nasal cannula. She has no symptoms of chest pain, shortness of breath, dizziness or palpitations. Currently maintained on Eliquis 2.5 mg twice a day, Lasix 40 mg by mouth twice a day and metoprolol 25 mg twice a day. PHYSICAL EXAMINATION CONSTITUTIONAL: No apparent distress. HEENT: Head is normocephalic. Pupils are equal, round. Sclerae anicteric. Mucous membranes of the mouth are moist. No JVD. No carotid bruit. CHEST EXAMINATION: Diminished bilaterally. No chest wall tenderness is noted on palpation or with deep breathing. HEART EXAMINATION: Irregular rate and rhythm. S1, S2 heard. Systolic ejection murmur at the left sternal border, no gallops or rub. EXTREMITIES: 2+ peripheral pulses, trace bilateral lower extremity edema and no calf tenderness. ASSESSMENT Paroxysmal atrial fibrillation with rapid ventricular rate, new onset Acute diastolic heart failure Pancytopenia Pleural effusions Acute kidney injury Valvular heart disease Sarcoidosis Hypothyroidism PLAN Stable on current medical regimen. Follow up in the office with Dr. Armando in 2 weeks. Nurse Practitioner note has been reviewed, I agree with a documented findings and plan of care. Patient was seen and examined. Objective - Vital Signs Vital signs: Vital Signs Temp 97.7 F 08/05/20 08:00 Pulse 72 08/05/20 12:24 Resp 18 08/05/20 08:00 BP 117/62 08/05/20 08:00 Pulse Ox 96 08/05/20 08:00 Intake & Output 08/04/20 08/05/20 08/05/20 18:59 06:59 18:59 Intake Total 598 120 Output Total 500 Balance 598 -500 120 Weight 61.8 kg Intake: Oral 598 120 Output: Urine 500 Other: Voiding Method Toilet Toilet Toilet # Voids 1 - Labs CBC & Chem 7: 08/05/20 08:39 08/05/20 08:39 Labs: Abnormal Lab Results - Last 24 Hours (Table) 10/08/04/20 08/05/20 Range/Units 06:57 08:35 08:39 WBC (3.8-10.6) k/uL RBC (3.80-5.40) m/uL Hgb (11.4-16.0) gm/dL Hct (34.0-46.0) % RDW (11.5-15.5) % Plt Count (150-450) k/uL Blast Cells % % Lymphocytes # (Manual) (1.0-4.8) k/uL Metamyelocytes # (Man) (0) k/uL Blast Cells # (Man) (0) k/uL BUN 44 H (7-17) mg/dL Creatinine 1.29 H (0.52-1.04) mg/dL Glucose 271 H (74-99) mg/dL Uric Acid 7.8 H (3.7-7.4) mg/dL Phosphorus 4.7 H (2.5-4.5) mg/dL Lactate Dehydrogenase 823 H (313-618) U/L Albumin 3.3 L (3.5-5.0) g/dL Albumin (PEP) 2.87 L (3.80-4.90) g/dL Sjgwp-1-Xbugdpnjc 0.48 H (0.10-0.40) g/dL Beta Globulins 0.47 L (0.60-1.30) g/dL Gamma Globulins 1.74 H (0.70-1.50) g/dL 08/05/20 Range/Units 08:39 WBC 2.3 L (3.8-10.6) k/uL RBC 2.46 L (3.80-5.40) m/uL Hgb 7.3 L (11.4-16.0) gm/dL Hct 22.8 L (34.0-46.0) % RDW 18.8 H (11.5-15.5) % Plt Count 131 L (150-450) k/uL Blast Cells % 5 H* % Lymphocytes # (Manual) 0.28 L (1.0-4.8) k/uL Metamyelocytes # (Man) 0.02 H (0) k/uL Blast Cells # (Man) 0.12 H (0) k/uL BUN (7-17) mg/dL Creatinine (0.52-1.04) mg/dL Glucose (74-99) mg/dL Uric Acid (3.7-7.4) mg/dL Phosphorus (2.5-4.5) mg/dL Lactate Dehydrogenase (313-618) U/L Albumin (3.5-5.0) g/dL Albumin (PEP) (3.80-4.90) g/dL Tjmze-3-Ilatktfkk (0.10-0.40) g/dL Beta Globulins (0.60-1.30) g/dL Gamma Globulins (0.70-1.50) g/dL Microbiology - Last 24 Hours (Table) 08/01/20 20:58 Blood Culture - Preliminary Blood No Growth after 72 hours
--- NOTE | 2020-08-05 13:11 | P.PN ---
Subjective Progress Note Date: 08/05/20 Principal diagnosis: Shortness of breath secondary to atrial fibrillation with RVR and acute exacerbation of CHF 84-year-old white female patient with known history of inactive quiescent sarcoidosis, history of heavy tobacco use, however it never actually diagnosed with COPD, previous history of pneumonia, hypothyroidism, who came into the hospital on 08/01/2020 for evaluation of worsening shortness of breath. Patient denied any chest pain or chest discomfort, no fever, no chills. No cough, patient was found to be in A. fib with RVR, initially placed on Cardizem drip fo r rate control, which was later weaned off, and patient was started on beta blockers per cardiology, and oral anticoagulation in the form of Eliquis. Heart the heart rate is much better controlled, breathing easier, her chest x-ray showed small to moderate left pleural effusion and adjacent atelectasis. CT chest without contrast showed moderate to severe emphysema with findings suggestive of small airway disease, and bilateral hazy opacities representing edema and atelectasis, left lower lobe platelike opacity that could represent rounded atelectasis. Small right pleural effusion. She was also quite pancytopenic on admission, white blood cell count of 1.2, hemoglobin is 7.5, platelet count of 143, d-dimer was significantly elevated at 25.9, however CTA chest showed no evidence of pulmonary embolism, he did show emphysema, diffuse ground glass interstitial pulmonary infiltrates noted to congestive heart failure, bilateral pleural effusions and basilar pulmonary infiltrates and atele ctasis, he 6 compression fracture was unchanged. Troponins were less than 0.0123, proBNP was 11,300, TSH was within normal limits at 2.120, urinalysis was negative for any sign of infection, she is quite dyspneic, tachypneic she was started on IV Lasix, she is in -720 ML fluid balance over the last 24 hours, she is breathing easier, although still dyspneic with any light exertion and even with speaking. She's been get not to the bedside commode, tolerating activity fairly well. Today's lab work has been reviewed showing white blood cell count of 2.1, hemoglobin of 7.2, blasts 2%, severely limits, BUN of 31 creatinine is 1.09, TSH was within normal limits. Hematology is following regarding the results of the abnormal CBC On 08/04/2020 patient seen in follow-up on selective care unit. She is awake and alert, in no acute distress, breathing easier, she is on 2 L of oxygen the pulse ox of 95%, vital signs are stable, she has been afebrile. She's been diuresed, she's been transitioned to oral diuretics currently at 40 mg twice daily. He is in -1.8 L fluid balance over the last 24 hours, lower extremity edema has improved, breathing has improved. Chest x-ray showing continue small pleural effusions, and CHF with mild interstitial edema. Patient continues on empiric antibiotics. White blood cell count is improving, to 2.0, hemoglobin is 7.7, patient continues on Cozaar 0, hematology is following, BUN is 34, creatinine is 1.3. Sputum cultures have shown no growth. The patient is seen today 08/05/2020 in follow-up on the selective care unit. She is currently sitting up in a chair at the bedside. Awake and alert in no acute distress. She is maintaining O2 saturations in the 90s on 2 L/m per nasal cannula. Sputum culture positive for gram-negative bacilli. Blood culture reveals no growth. White count 2.3. Hemoglobin 7.3. Platelets 131. Sodium 138. Potassium 3.9. Creatinine 1.29. She remains on bronchodilators, antibiotics, anticoagulated with Eliquis. Objective - Vital Signs Vital signs: Vital Signs Temp 97.7 F 08/05/20 08:00 Pulse 72 08/05/20 12:24 Resp 18 08/05/20 08:00 BP 117/62 08/05/20 08:00 Pulse Ox 96 08/05/20 08:00 Intake & Output 08/04/20 08/05/20 08/05/20 18:59 06:59 18:59 Intake Total 598 120 Output Total 500 Balance 598 -500 120 Weight 61.8 kg Intake: Oral 598 120 Output: Urine 500 Other: Voiding Method Toilet Toilet Toilet # Voids 1 - Exam GENERAL EXAM: Alert, very pleasant, 84-year-old female on 2 L of oxygen a pulse ox of 96% comfortable in no apparent distress. HEAD: Normocephalic/atraumatic. EYES: Normal reaction of pupils, equal size. Conjunctiva pink, sclera white. NOSE: Clear with pink turbinates. THROAT: No erythema or exudates. NECK: No masses, no JVD, no thyroid enlargement, no adenopathy. CHEST: No chest wall deformity. Symmetrical expansion. LUNGS: Equal air entry with crackles in the bilateral posterior bases. CVS: Irregular rate and rhythm, normal S1 and S2, no gallops, no murmurs, no rubs ABDOMEN: Soft, nontender. No hepatosplenomegaly, normal bowel sounds, no guarding or rigidity. EXTREMITIES: No clubbing, mild pretibial edema, no cyanosis, 2+ pulses and upper and lower extremities. MUSCULOSKELETAL: Muscle strength and tone normal. SPINE: No scoliosis or deformity SKIN: No rashes CENTRAL NERVOUS SYSTEM: No focal deficits, tone is normal in all 4 extremities. PSYCHIATRIC: Alert and oriented -3. Appropriate affect. Intact judgment and insight. - Labs CBC & Chem 7: 08/05/20 08:39 08/05/20 08:39 Labs: Abnormal Lab Results - Last 24 Hours (Table) 08/03/20 08/04/20 08/05/20 Range/Units 06:57 08:35 08:39 WBC (3.8-10.6) k/uL RBC (3.80-5.40) m/uL Hgb (11.4-16.0) gm/dL Hct (34.0-46.0) % RDW (11.5-15.5) % Plt Count (150-450) k/uL Blast Cells % % Lymphocytes # (Manual) (1.0-4.8) k/uL Metamyelocytes # (Man) (0) k/uL Blast Cells # (Man) (0) k/uL BUN 44 H (7-17) mg/dL Creatinine 1.29 H (0.52-1.04) mg/dL Glucose 271 H (74-99) mg/dL Uric Acid 7.8 H (3.7-7.4) mg/dL Phosphorus 4.7 H (2.5-4.5) mg/dL Lactate Dehydrogenase 823 H (313-618) U/L Albumin 3.3 L (3.5-5.0) g/dL Albumin (PEP) 2.87 L (3.80-4.90) g/dL Ierpc-7-Nbdwvwrut 0.48 H (0.10-0.40) g/dL Beta Globulins 0.47 L (0.60-1.30) g/dL Gamma Globulins 1.74 H (0.70-1.50) g/dL 08/05/20 Range/Units 08:39 WBC 2.3 L (3.8-10.6) k/uL RBC 2.46 L (3.80-5.40) m/uL Hgb 7.3 L (11.4-16.0) gm/dL Hct 22.8 L (34.0-46.0) % RDW 18.8 H (11.5-15.5) % Plt Count 131 L (150-450) k/uL Blast Cells % 5 H* % Lymphocytes # (Manual) 0.28 L (1.0-4.8) k/uL Metamyelocytes # (Man) 0.02 H (0) k/uL Blast Cells # (Man) 0.12 H (0) k/uL BUN (7-17) mg/dL Creatinine (0.52-1.04) mg/dL Glucose (74-99) mg/dL Uric Acid (3.7-7.4) mg/dL Phosphorus (2.5-4.5) mg/dL Lactate Dehydrogenase (313-618) U/L Albumin (3.5-5.0) g/dL Albumin (PEP) (3.80-4.90) g/dL Okabc-3-Tkrinirke (0.10-0.40) g/dL Beta Globulins (0.60-1.30) g/dL Gamma Globulins (0.70-1.50) g/dL Microbiology - Last 24 Hours (Table) 08/03/20 20:00 Gram Stain - Preliminary Sputum Sputum Culture - Preliminary Gram Neg Bacilli 08/01/20 20:58 Blood Culture - Preliminary Blood No Growth after 72 hours Assessment and Plan Assessment: 1 Acute exacerbation of congestive heart failure with diastolic dysfunction, echocardiogram showed preserved left ventricular systolic function with an EF of 60-65%, mild aortic regurg, mild mitral regurg, mild tricuspid regurg and mild pulmonary hypertension with right-sided pressure of 41.7 mmHg 2 History of inactive quiescent sarcoidosis 3 Pancytopenia, with history of bicytopenia in 2016, possibly related to underlying myelodysplasia, hematology is following 4 Atrial fibrillation with RVR, currently better controlled 5 History of COPD 6 Previous history of tobacco use currently in remission, patient has had a 30- 35 pack years of smoking 7 Previous episodes of pneumonia 8 Hypothyroidism 9 History of pleurisy Plan: The patient was seen and evaluated by Dr. Huston She is currently stable from the pulmonary standpoint Good for discharge once cleared by cardiology I, the cosigning physician, performed a history & physical examination of the patient. Lungs sounds with faint crackles in the posterior bases. Maintaining good O2 saturations in the 90s on 2 L/m per nasal cannula. I discussed the assessment and plan of care with my nurse practitioner, Gracie Betancoutr. I attest to the above note as dictated by her.
[2020-08-05 14:16] VITALS: BP 125/54; PULSE 82
--- NOTE | 2020-08-05 14:26 | P.PN ---
Subjective Progress Note Date: 08/05/20 Principal diagnosis: Pancytopenia Primary team plan for discharge, continue two more doses of dex with PPI Objective - Vital Signs Vital signs: Vital Signs Temp 97.7 F 08/05/20 08:00 Pulse 72 08/05/20 12:24 Resp 18 08/05/20 12:00 BP 125/54 08/05/20 12:00 Pulse Ox 94 L 08/05/20 12:00 Intake & Output 08/04/20 08/05/20 08/05/20 18:59 06:59 18:59 Intake Total 598 240 Output Total 500 Balance 598 -500 240 Weight 61.8 kg Intake: Oral 598 240 Output: Urine 500 Other: Voiding Method Toilet Toilet Toilet # Voids 1 - Exam - Constitutional General appearance: Present: mild distress - EENT Eyes: Present: EOMI, PERRLA ENT: Present: hearing grossly normal, normal oropharynx - Respiratory Respiratory: bilateral: rales, prolonged expiration - Cardiovascular Rhythm: irregularly irregular Heart sounds: normal: S1, S2 - Gastrointestinal General gastrointestinal: Present: normal bowel sounds, soft - Neurologic Neurologic: Present: CNII-XII intact - Musculoskeletal Musculoskeletal: Present: generalized weakness, strength equal bilaterally - Psychiatric Psychiatric: Present: A&O x's 3, appropriate affect - Labs CBC & Chem 7: 08/05/20 08:39 08/05/20 08:39 Labs: Abnormal Lab Results - Last 24 Hours (Table) 08/03/20 08/04/20 08/05/20 Range/Units 06:57 08:35 08:39 WBC (3.8-10.6) k/uL RBC (3.80-5.40) m/uL Hgb (11.4-16.0) gm/dL Hct (34.0-46.0) % RDW (11.5-15.5) % Plt Count (150-450) k/uL Blast Cells % % Lymphocytes # (Manual) (1.0-4.8) k/uL Metamyelocytes # (Man) (0) k/uL Blast Cells # (Man) (0) k/uL BUN 44 H (7-17) mg/dL Creatinine 1.29 H (0.52-1.04) mg/dL Glucose 271 H (74-99) mg/dL Uric Acid 7.8 H (3.7-7.4) mg/dL Phosphorus 4.7 H (2.5-4.5) mg/dL Lactate Dehydrogenase 823 H (313-618) U/L Albumin 3.3 L (3.5-5.0) g/dL Albumin (PEP) 2.87 L (3.80-4.90) g/dL Wmqaz-5-Bakmmpijv 0.48 H (0.10-0.40) g/dL Beta Globulins 0.47 L (0.60-1.30) g/dL Gamma Globulins 1.74 H (0.70-1.50) g/dL 08/05/20 Range/Units 08:39 WBC 2.3 L (3.8-10.6) k/uL RBC 2.46 L (3.80-5.40) m/uL Hgb 7.3 L (11.4-16.0) gm/dL Hct 22.8 L (34.0-46.0) % RDW 18.8 H (11.5-15.5) % Plt Count 131 L (150-450) k/uL Blast Cells % 5 H* % Lymphocytes # (Manual) 0.28 L (1.0-4.8) k/uL Metamyelocytes # (Man) 0.02 H (0) k/uL Blast Cells # (Man) 0.12 H (0) k/uL BUN (7-17) mg/dL Creatinine (0.52-1.04) mg/dL Glucose (74-99) mg/dL Uric Acid (3.7-7.4) mg/dL Phosphorus (2.5-4.5) mg/dL Lactate Dehydrogenase (313-618) U/L Albumin (3.5-5.0) g/dL Albumin (PEP) (3.80-4.90) g/dL Rdyiw-0-Wfajhtdbo (0.10-0.40) g/dL Beta Globulins (0.60-1.30) g/dL Gamma Globulins (0.70-1.50) g/dL Microbiology - Last 24 Hours (Table) 08/03/20 20:00 Gram Stain - Preliminary Sputum Sputum Culture - Preliminary Gram Neg Bacilli 08/01/20 20:58 Blood Culture - Preliminary Blood No Growth after 72 hours Assessment and Plan Plan: Assessment and Plan Pancytopenia 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 - We did receive her outside hematology notes and reviewed, [place]. 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 The patient had 2 M protein's with total quantitation in the low 2 g/dL range. Although was on observation as her counts remained within safe ranges. - This admission appears to be noted change in her labs from her baseline. This could indicate progression of one or both of her underlying bone marrow conditions. Transient marrow compromise from her acute illness also remains in differential. Labs for deficiency states are negative. - Treatment dose of dex 40mg po daily x4 Atrial fibrillation with RVR - Symptomatic - Cardiology Acute Hypoxic Respiratory failure: - Continues to be significantly SOB - Pulm following - CHF (Diastolic) COPD exacerbation - A-fib with RVR - Symptomatic Anemia Two more doses of dexamethasone 40mg PO after discharge (total 4 days) with PPI Follow-up with normal outside cell technician within a week Physician Attes: I have completed the full history and physical and developed the above impression and plan, agree with dictation by OJHN Case dictated as scribe
== END 2020-08-05 17:09 | disposition home health service (06) | DRG 291 ==
LOC: 3SCARD 16:31
PROVIDERS: ADMIT Hospitalist; ATTEND Hospitalist
DX: I50.33 Acute on chronic diastolic (congestive) heart failure (principal); J96.01 Acute respiratory failure with hypoxia; J18.9 Pneumonia, unspecified organism; D61.818 Other pancytopenia; N17.9 Acute kidney failure, unspecified; J98.11 Atelectasis; E03.9 Hypothyroidism, unspecified; I08.3 Combined rheumatic disorders of mitral, aortic and tricuspid valves; D86.9 Sarcoidosis, unspecified; I27.20 Pulmonary hypertension, unspecified; I48.0 Paroxysmal atrial fibrillation; Z20.828 Contact with and (suspected) exposure to other viral communicable diseases; D46.9 Myelodysplastic syndrome, unspecified; J43.9 Emphysema, unspecified; Z87.01 Personal history of pneumonia (recurrent); Z87.891 Personal history of nicotine dependence; Z83.3 Family history of diabetes mellitus; Z90.49 Acquired absence of other specified parts of digestive tract; Z79.899 Other long term (current) drug therapy; Z79.890 Hormone replacement therapy; Z79.01 Long term (current) use of anticoagulants; Z98.890 Other specified postprocedural states; Z80.9 Family history of malignant neoplasm, unspecified
CPT/HCPCS: 71045; 71250; 71275; 76700; 80048; 80053; 81001; 82607; 82728; 82747; 83010; 83540; 83550; 83615; 83880; 83883; 83921; 84100; 84165; 84443; 84484; 84550; 85025; 85045; 85379; 86038; 86334; 86431; 87040; 87070; 87077; 87186; 87205; 93306; 94640; 94760

== ENCOUNTER 2020-08-15 09:59 | Inpatient (IN) | payer MEDICARE, OTHER ==
[2020-08-15] MEDS ORDERED: HEPARIN SODIUM,PORCINE 5,000 UNIT/ML 1 ML VIAL IV PRN ×2 (15:35→17:19)
[2020-08-15] MEDS ORDERED: HEPARIN SODIUM,PORCINE 5,000 UNIT/ML 1 ML VIAL IV ONE ×2 (15:35→17:19)
[2020-08-15] MEDS ORDERED: HEPARIN SOD,PORK IN 0.45% NACL 25,000 UNIT in 0.45% NACL 1 250ML.BAG IV SCH ×2 (15:45→17:30)
[2020-08-15 17:20] LABS: Anisocytosis Slight; HCT 21.8 % (34.0-46.0); HGB 7.2 gm/dL (11.4-16.0); Hypochromasia Slight; MCH 30.9 pg (25.0-35.0); MCHC 32.8 g/dL (31.0-37.0); MCV 94.2 fL (80.0-100.0); Mean Platelet Volume 19.1; Poikilocytosis Slight; RBC 2.32 m/uL (3.80-5.40); RDW 17.9 % (11.5-15.5); WBC 2.3 k/uL (3.8-10.6)
[2020-08-15 17:30] LABS: INR 1.1 (<1.2); Partial Thromboplastin Time 32.7 sec (22.0-30.0); Prothrombin Time 11.4 sec (9.0-12.0)
[2020-08-15] MEDS: FUROSEMIDE 40 MG TAB PO SCH (17:47)
[2020-08-15] MEDS: METOPROLOL TARTRATE 25 MG TAB PO SCH (17:48)
--- NOTE | 2020-08-15 18:32 | CONS ---
CONSULTATION CHIEF COMPLAINT: Atrial fibrillation. Jayde is an 84-year-old lady with history of mitral and aortic regurgitation, sarcoidosis and hypothyroidism who was recently admitted to hospital with atrial fibrillation with rapid ventricular rate and was subsequently found to be profoundly anemic. She received blood transfusion and was discharged home. I in fact evaluated her on Saturday in my office in [place] when she presented to me for postoperative hospital followup. Her predominant symptom was that she was somewhat short of breath, but she was stable hemodynamically. There was no leg edema and her physical exam was benign and unremarkable. On Saturday she was more fatigued, tired and short of breath, went to the emergency room. Her hemoglobin was low at 6.5 and apparently she underwent blood transfusion and was sent home. This morning again she was not feeling good; hence her granddaughter took her to the ER at [place], from where she has been transferred and admitted here. An echocardiogram at last admission showed normal LV systolic function with mild aortic stenosis and mild mitral and tricuspid regurgitation and mild pulmonary hypertension. At the time of my evaluation, patient appears fatigued and tired, and I cannot get much meaningful information from her. I do not have any labs on her on this admission. I will review labs from [place]. PAST MEDICAL HISTORY: Past medical history is significant for anemia, atrial fibrillation, aortic stenosis, sarcoidosis and COPD. MEDICATIONS: Medications at home include Synthroid, Lopressor, Lasix, Pulmicort and Eliquis. FAMILY HISTORY: Negative for premature coronary artery disease. SOCIAL HISTORY: Negative for current smoking, EtOH abuse or drug abuse. REVIEW OF SYSTEMS: HEENT is unremarkable. CARDIAC: As described above. RESPIRATORY: As described above. GI: Negative. GENITOURINARY: Negative. ALLERGY: Negative. IMMUNOLOGY: Negative. SKIN: Negative. MUSCULOSKELETAL: Significant for arthritis. PSYCHOSOCIAL: Negative. ENDOCRINE: Negative. HEMATOLOGICAL: Significant for symptomatic anemia. CONSTITUTIONAL: Significant for fatigue, tiredness and mild confusion. PHYSICAL EXAMINATION: Patient is comfortable at rest. Afebrile. Heart rate is 90 beats per minute. Blood pressure is 106/55, respiratory rate 18. Oxygen saturation is 96%. There is no jugular venous distention. Chest exam reveals occasional rhonchi with diminished air entry bilaterally. Heart exam reveals first and second heart sounds, irregular rhythm and an ejection systolic murmur in the aortic area. Abdomen is soft. Examination of extremities did not reveal any edema. Peripheral pulses are felt. ASSESSMENT: 1. Severe symptomatic anemia. 2. Sarcoidosis with respiratory insufficiency. 3. Persistent atrial fibrillation. PLAN: I am going to stop the anticoagulant at this time, given the recurrent episodes of symptomatic anemia that the patient had. Resume the rest of her medications, including Lasix, Lopressor and her nebulizers. I will further optimize therapy based on how she evolves in response to treatments. I reviewed the EKG from [place]. It shows the atrial fibrillation with poorly controlled ventricular rate, nonspecific ST-T wave changes and poor R-wave progression. The patient was in sinus rhythm when I saw her back on Saturday. I am going to resume the beta hector that she was on. Hopefully this will help us control the heart rate. If necessary, we may have to start her on intravenous Cardizem. RUDI / SABINO: [id number] /
[2020-08-15 19:01] LABS: Eosinophils # (M) 0.05 k/uL (0-0.7); Metamyelocytes # (M) 0.05 k/uL (0); Myelocytes # (M) 0.02 k/uL (0); Promyelocytes # (M) 0.05 k/uL (0)
[2020-08-15 19:02] LABS: Large Platelets Present; Nucleated Red Blood Cells 0 /100 WBC (0-0); Total Cells Counted 200
[2020-08-15 19:04] LABS: Platelet Count 28 k/uL (150-450)
[2020-08-15] MEDS: DORZOLAMIDE HCL 2% DROPS 10 ML BTL BOTH EYES SCH (20:40)
[2020-08-15] MEDS: BUDESONIDE 0.5 MG/2 ML NEBU INHALATION SCH (20:52)
[2020-08-15] MEDS ORDERED: APIXABAN 2.5 MG TABLET PO SCH (21:00)
--- NOTE | 2020-08-16 00:47 | P.HPIM ---
History of Present Illness H&P Date: 08/15/20 Chief Complaint: Weakness Patient is a 84-year-old female with a known history of mitral and aortic regurgitation, sarcoidosis, hypothyroidism and chronic CHF with diastolic d ysfunction who was recently admitted to the hospital with atrial fibrillation with RVR and subsequently found to be profoundly anemic. Patient did receive blood transfusion and was discharged home. Patient initially presented to [facility] with complaints of shortness of breath and generalized weakness and poor oral intake. Patient was found to have hemoglobin level of 6.5 and underwent 1 unit of PRBC on Saturday. Again this morning patient was not feeling good and and her daughter took her to ER at [facility] where she has been found to have A. fib with RVR and was transferred to [facility] for evaluation. Patient was seen by hematology during recent admission. 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 dex 40mg po daily x4 was given. Echocardiogram obtained reveals preserved LV systolic function with ejection fraction 60-65%, mild aortic regurgitation, mild aortic stenosis with a mean gradient of 9 mmHg, mild MR with peak gradient across the mitral valve with 3 mmHg, mild TR and mild pulmonary hypertension with an RVSP of 41 mmHg. Review of Systems Constitutional: Patient denies any fever or chills . Patient does have generalized weakness and malaise.. Abdomen: No nausea vomiting. No abdominal pain. Diarrhea present.. Cardiovascular: Patient denied any chest pain. Shortness of breath present and no leg swelling. No palpitations.. Respiratory: patient denied any cough is from production. No shortness of breath Neurologic: Patient denied any numbness or tingling headache. Musculoskeletal: Patient denies any complaints of joint swelling or deformity. Skin: Negative Psychiatric: Negative Endocrine: No heat or cold intolerance. No recent weight gain. Genitourinary: No dysuria or hematuria. All other 14 point ROS negative except the above Past Medical History Past Medical History: Atrial Fibrillation, COPD, Pneumonia, Thyroid Disorder Additional Past Medical History / Comment(s): sarcoidosis, right side pleurisy, hypothyroidism History of Any Multi-Drug Resistant Organisms: None Reported Past Surgical History: Cholecystectomy Additional Past Surgical History / Comment(s): mediastinoscopy 2010 Past Anesthesia/Blood Transfusion Reactions: No Reported Reaction Past Psychological History: No Psychological Hx Reported Smoking Status: Former smoker Past Alcohol Use History: None Reported Past Drug Use History: None Reported - Past Family History Mother Family Medical History: Diabetes Mellitus Father Family Medical History: Cancer Medications and Allergies Home Medications Medication Instructions Recorded Confirmed Type Albuterol Nebulized [Ventolin 2.5 mg INHALATION Q6H PRN 12/22/15 08/15/20 History Nebulized] Cholecalciferol [Vitamin D3 (25 5,000 unit PO DAILY@0900 12/22/15 08/15/20 History Mcg = 1000 Iu)] Latanoprost [Xalatan 0.005%] 1 drop BOTH EYES HS@209912/22/15 08/15/20 History Dorzolamide HCl [Trusopt 2%] 1 drop BOTH EYES BID@0900,209908/01/20 08/15/20 History Ferrous Sulfate [Iron (65 MG 325 mg PO DAILY@0900 08/01/20 08/15/20 History Elemental)] Levothyroxine Sodium [Synthroid] 112 mcg PO DAILY@0600 08/01/20 08/15/20 History Vit C/E/Zn/Coppr/Lutein/Zeaxan 1 tab PO DAILY@0900 08/01/20 08/15/20 History [Preservision Areds 2 Softgel] Furosemide [Lasix] 40 mg PO BID@0900,1600 #60 tab 08/05/20 08/15/20 Rx Apixaban [Eliquis] 2.5 mg PO BID@0900,209908/15/20 08/15/20 History Budesonide [Pulmicort] 0.5 mg INHALATION RT-BID@0900,209908/15/20 08/15/20 History Metoprolol Tartrate [Lopressor] 25 mg PO BID@0900,209908/15/20 08/15/20 History Omeprazole [PriLOSEC] 40 mg PO DAILY@0900 08/15/20 08/15/20 History Allergies Allergy/AdvReac Type Severity Reaction Status Date / Time No Known Allergies Allergy Verified 08/15/20 15:44 Physical Exam Vitals: Vital Signs Temp Pulse Resp BP Pulse Ox 08/15/20 16:00 98 F 99 22 106/55 96 Intake and Output 08/15/20 08/15/20 08/15/20 06:59 14:59 22:59 Other: # Bowel Movements 1 Weight 59.5 kg 59.5 kg PHYSICAL EXAMINATION: Patient is lying in the bed comfortably, no acute distress, awake alert and oriented. Lethargic.. HEENT: Normocephalic. Neck is supple. Pupils reactive. Nostrils clear. Oral cavity is moist. Ears reveal no drainage. Neck reveals no JVD, carotid bruits, or thyromegaly. CHEST EXAMINATION: Trachea is central. Symmetrical expansion. Bibasilar diminished air entry and crackles positive. CARDIAC: Normal S1, S2 with no gallops. No murmurs ABDOMEN: Soft. Bowel sounds normal. No organomegaly. No abdominal bruits. Extremities: reveal no edema. No clubbing or cyanosis Neurologically awake, alert, oriented x3 with well-coordinated movements. No focal deficits noted Skin: No rash or skin lesions. Psychiatric: Coperative. Nonsuicidal Musculoskeletal: No joint swelling or deformity. Normal range of motion. Results CBC & Chem 7: 08/18/20 07:56 08/18/20 07:56 Thrombosis Risk Factor Assmnt - Choose All That Apply Each Risk Factor Represents 3 Points: Age 75 years or older Thrombosis Risk Factor Assessment Total Risk Factor Score: 3 Thrombosis Risk Factor Assessment Level: Moderate Risk Assessment and Plan Assessment: Symptomatic anemia .s/p transfusion hemoglobin 7.2 currently Acute Diarrhea. R/o Cdiff Chronic CHF with diastolic function Persistent atrial fibrillation. 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 SCDs Plan: Patient will be continued on telemetry monitoring. started back on loppress or.Eliquis is on hold.. Started on Heparin Drip. Cardiology was consulted. Continue with Lopressor and Lasix and other home medications. Monitor H&H and transfuse if hemoglobin is less than 7. Time with Patient: Greater than 30
[2020-08-16] MEDS: LEVOTHYROXINE 112 MCG TAB PO SCH (07:00)
[2020-08-16 07:49] LABS: Anisocytosis Slight; HCT 23.1 % (34.0-46.0); HGB 7.3 gm/dL (11.4-16.0); Hypochromasia Slight; MCH 30.4 pg (25.0-35.0); MCHC 31.6 g/dL (31.0-37.0); MCV 96.3 fL (80.0-100.0); Macrocytosis Slight; Mean Platelet Volume 17.7; RDW 18.5 % (11.5-15.5); WBC 2.2 k/uL (3.8-10.6)
[2020-08-16 08:03] LABS: Band Neutrophils % 6 %; Basophils # (M) 0.02 k/uL (0-0.2); Lymphocytes # (M) 0.46 k/uL (1.0-4.8); Monocytes # (M) 0.14 k/uL (0-1.0); Neutrophils % (M) 50 %
[2020-08-16 08:04] LABS: Blast Cells # (M) 0.39 k/uL (0)
[2020-08-16 08:05] LABS: Rouleaux Present
[2020-08-16 08:06] LABS: Toxic Granulation Present
[2020-08-16 08:10] LABS: Platelet Count 38 k/uL (150-450)
[2020-08-16 08:11] LABS: Calcium 8.4 mg/dL (8.4-10.2); Magnesium 2.2 mg/dL (1.6-2.3); Potassium 3.3 mmol/L (3.5-5.1)
--- NOTE | 2020-08-16 08:32 | XR ---
EXAMINATION TYPE: XR chest 1V DATE OF EXAM: 08/16/2020 COMPARISON: Prior chest x-ray 08/04/2020 HISTORY: Congestive heart failure TECHNIQUE: Single frontal view of the chest is obtained. FINDINGS: Bilateral airspace disease is present, there is blunting of the left costophrenic angles a s on prior. Heart size is stable. Aorta is dense. There are overlying leads. No evident pneumothorax. There is underlying emphysema. IMPRESSION: Correlate for congestive heart failure with pulmonary edema, pneumonia small effusions
[2020-08-16] MEDS: ALBUTEROL NEBULIZED 2.5 MG/3 ML INHALATION PRN ×2 (08:45→20:43)
[2020-08-16] MEDS: BUDESONIDE 0.5 MG/2 ML NEBU INHALATION SCH ×2 (08:45→20:43)
[2020-08-16] MEDS: VIT A,C & E-LUTEIN-MINERALS 1 EACH TAB PO SCH (08:58)
[2020-08-16] MEDS: FERROUS SULFATE 325 MG TAB PO SCH (08:58)
[2020-08-16] MEDS: CHOLECALCIFEROL 1,000 UNIT TAB PO SCH (08:58)
[2020-08-16] MEDS: PANTOPRAZOLE 40 MG TABLET PO SCH (08:58)
[2020-08-16] MEDS: METOPROLOL TARTRATE 25 MG TAB PO SCH ×2 (08:58→19:56)
[2020-08-16] MEDS: FUROSEMIDE 40 MG TAB PO SCH ×2 (08:58→15:55)
[2020-08-16] MEDS: DORZOLAMIDE HCL 2% DROPS 10 ML BTL BOTH EYES SCH ×2 (08:59→19:56)
[2020-08-16 09:51] LABS: Band Neutrophils % 3 %; Blast Cells # (M) 0.46 k/uL (0); Lymphocytes # (M) 0.37 k/uL (1.0-4.8); Metamyelocytes # (M) 0.07 k/uL (0); Metamyelocytes % 3 %; Monocytes # (M) 0.04 k/uL (0-1.0); Myelocytes # (M) 0.02 k/uL (0); Myelocytes % 1 %; Neutrophils % (M) 53 %; Nucleated Red Blood Cells 0 /100 WBC (0-0); Total Cells Counted 100
[2020-08-16 09:52] LABS: Rouleaux Present
[2020-08-16] MEDS ORDERED: POTASSIUM CHLORIDE ER 20 MEQ TAB.ER PO STA (10:16)
--- NOTE | 2020-08-16 12:27 | P.PN ---
Subjective Progress Note Date: 08/16/20 this is a pleasant 84-year-old female with history of mitral and aortic regurgitation, sarcoidosis, hypothyroidism, persistent atrial fibrillation, who was recently in the hospital for anemia, received blood transfusion and was discharged home. She presented to the hospital on this occasion because of sy mptoms of shortness of breath. She was also complaining of feeling significantly fatigued. Her hemoglobin was down to 6.5 she underwent another blood transfusion and was sent home. Again the patient went to [facility] with similar symptoms and was subsequently transferred here. An echo cardiogram with Doppler study which was performed on her last admission showed a normal LV systolic function with mild aortic stenosis and mild and tricuspid regurgitation. Patient was seen and examined this morning, does appear to be fatigued today as well although states that she's feeling a little bit stronger overall. Because of the patient's anemia requiring blood transfusion, she is not a candidate for oral anticoagulation and therefore this is been discontinued.chest x-ray was performed today which showed congestive heart failure, pulmonary edema, pneumonia and small effusion.her blood pressure 108/60 with a heart rate of 110, 97% on 3 L of oxygen.White blood cell count 2.2, hemoglobin 7.3, platelet count 38.sodium 137, potassium 3.3, BUN 61, creatinine 1.4, magnesium 2.2. Objective - Vital Signs Vital signs: Vital Signs Temp 96.6 F L 08/16/20 08:00 Pulse 108 H 08/16/20 08:57 Resp 20 08/16/20 04:00 BP 108/56 08/16/20 08:00 Pulse Ox 97 08/16/20 08:00 Intake & Output 08/15/20 08/16/20 08/16/20 18:59 06:59 18:59 Intake Total 222 350 100 Balance 222 350 100 Weight 59.5 kg 61 kg Intake: Oral 222 350 100 Other: Voiding Method Bedside Commode # Bowel Movements 1 - Exam PHYSICAL EXAMINATION: GENERAL:84-year-old female in no acute distress at the time of my examination HEENT: Head is atraumatic, normocephalic. Pupils equal, round. Sclera anicteric. Conjunctiva are clear. Mucous membranes of the mouth are moist. Neck is supple. There is no elevated jugular venous pressure.no carotid bruit is heard. HEART EXAMINATION: [Heart S1, S2 irregularly irregular systolic ejection murmur is heard CHEST EXAMINATION:[ Lungs reveal scattered coarse rhonchi, diminished air entry to the bases bilaterally ABDOMEN: [ Soft, nontender. Bowel sounds are heard. No organomegaly noted]. EXTREMITIES:[ 2+ peripheral pulses with no evidence of peripheral edema and no calf tenderness noted]. NEUROLOGIC [patient is awake, alert and oriented 3 . - Labs CBC & Chem 7: 08/16/20 07:03 08/16/20 07:03 Labs: Abnormal Lab Results - Last 24 Hours (Table) 08/15/20 08/15/20 08/16/20 Range/Units 16:48 16:48 07:03 WBC 2.3 L 2.2 L (3.8-10.6) k/uL RBC 2.32 L 2.40 L (3.80-5.40) m/uL Hgb 7.2 L 7.3 L (11.4-16.0) gm/dL Hct 21.8 L 23.1 L (34.0-46.0) % RDW 17.9 H 18.5 H (11.5-15.5) % Plt Count 28 L D 38 L (150-450) k/uL Blast Cells % 17 H* 21 H* % Neutrophils # (Manual) 1.20 L 1.20 L (1.3-7.7) k/uL Lymphocytes # (Manual) 0.46 L 0.37 L (1.0-4.8) k/uL Metamyelocytes # (Man) 0.05 H 0.07 H (0) k/uL Myelocytes # (Manual) 0.02 H 0.02 H (0) k/uL Promyelocytes # (Man) 0.05 H (0) k/uL Blast Cells # (Man) 0.39 H 0.46 H (0) k/uL APTT 32.7 H (22.0-30.0) sec Potassium (3.5-5.1) mmol/L BUN (7-17) mg/dL Creatinine (0.52-1.04) mg/dL Glucose (74-99) mg/dL 08/16/20 Range/Units 07:03 WBC (3.8-10.6) k/uL RBC (3.80-5.40) m/uL Hgb (11.4-16.0) gm/dL Hct (34.0-46.0) % RDW (11.5-15.5) % Plt Count (150-450) k/uL Blast Cells % % Neutrophils # (Manual) (1.3-7.7) k/uL Lymphocytes # (Manual) (1.0-4.8) k/uL Metamyelocytes # (Man) (0) k/uL Myelocytes # (Manual) (0) k/uL Promyelocytes # (Man) (0) k/uL Blast Cells # (Man) (0) k/uL APTT (22.0-30.0) sec Potassium 3.3 L (3.5-5.1) mmol/L BUN 61 H (7-17) mg/dL Creatinine 1.41 H (0.52-1.04) mg/dL Glucose 111 H (74-99) mg/dL Assessment and Plan Plan: assessment and plan #1 severe symptomatic anemia, patient has had recent blood transfusions #2 sarcoidosis with respiratory insufficiency #3 chronic persistent atrial fibrillation Plan We'll replace the patient's potassium today. The patient will not be reinitiated on anticoagulation, she is not a candidate due to her anemia requiring blood transfusions. DNP note has been reviewed, I agree with a documented findings and plan of care. Patient was seen and examined.
[2020-08-16] MEDS: VANCOMYCIN 125 MG CAPSULE PO SCH ×2 (15:55→23:24)
[2020-08-16] MEDS: CHOLESTYRAMINE (WITH SUGAR) 4 GM PACKET PO SCH (17:49)
[2020-08-16] MEDS ORDERED: SODIUM CHLORIDE 0.9% IVPB SCH (18:00)
[2020-08-16] MEDS ORDERED: VANCOMYCIN IVPB SCH (18:00)
[2020-08-17] MEDS: VANCOMYCIN 125 MG CAPSULE PO SCH ×4 (06:20→23:22)
[2020-08-17] MEDS: LEVOTHYROXINE 112 MCG TAB PO SCH (06:20)
--- NOTE | 2020-08-17 07:02 | P.CONS ---
History of Present Illness - Reason for Consult Consult date: 08/16/20 Diarrhea Requesting physician: Erick Slater - Chief Complaint Weakness - History of Present Illness 84-year-old female with a medical history significant for sarcoidosis, hypothyroidism, congestive heart failure with diastolic dysfunction, mitral regurgitation, aortic regurgitation and atrial fibrillation, and pancytopenia for which she follows up with the hematology/oncology service who presented to the hospital due to complaints of shortness of breath and weakness. The patient reports generalized weakness and shortness of breath worsened by exertion. She also reports problems with frequent loose bowel movements occurring for approximately 4 days. She reports multiple episodes of watery bowel movements. No blood per rectum nor did. Last colonoscopy was within the past 5 to 10 years in [place]. 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 Hemoglobin currently stable at 7.3 from 7.2, platelet count 38,000 and WBC 2.2. Chest x-ray performed in evaluation suspicious for congestive heart failure. On current hospitalization testing for C. difficile toxin was negative, however patient's daughters were at bedside report that they were informed of a positive test prior to transfer. Review of Systems REVIEW OF SYSTEMS: CONSTITUTIONAL: Denies any fevers, chills, weight change but the patient had been having fatigue. CARDIOVASCULAR: Denies any chest pain, palpitations high or low blood pressures RESPIRATORY: Denies any shortness of breath, hemoptysis or cough. GENITOURINARY: No dysuria or hematuria. MUSCULOSKELETAL: No weakness reported. SKIN: Denies any new rashes or lesions, jaundice or pallor. PSYCHIATRIC: Denies any depression or anxiety. NEUROLOGY: Denies headache, denies any new focal deficits. EARS/NOSE/THROAT: No recent hearing change, congestion, nasal discharge or sore throat. EYES: No pain in eyes, discharge or change in vision. GASTROINTESTINAL: As per HPI. Past Medical History Past Medical History: Atrial Fibrillation, COPD, Pneumonia, Thyroid Disorder Additional Past Medical History / Comment(s): sarcoidosis, right side pleurisy, hypothyroidism History of Any Multi-Drug Resistant Organisms: None Reported Past Surgical History: Cholecystectomy Additional Past Surgical History / Comment(s): mediastinoscopy 2011 Past Anesthesia/Blood Transfusion Reactions: No Reported Reaction Past Psychological History: No Psychological Hx Reported Smoking Status: Former smoker Past Alcohol Use History: None Reported Past Drug Use History: None Reported - Past Family History Mother Family Medical History: Diabetes Mellitus Father Family Medical History: Cancer Medications and Allergies Home Medications Medication Instructions Recorded Confirmed Type Albuterol Nebulized [Ventolin 2.5 mg INHALATION Q6H PRN 12/22/15 08/15/20 History Nebulized] Cholecalciferol [Vitamin D3 (25 5,000 unit PO DAILY@0912/22/15 08/15/20 History Mcg = 1000 Iu)] Latanoprost [Xalatan 0.005%] 1 drop BOTH EYES HS@209912/22/15 08/15/20 History Dorzolamide HCl [Trusopt 2%] 1 drop BOTH EYES BID@0900,209908/01/20 08/15/20 History Ferrous Sulfate [Iron (65 MG 325 mg PO DAILY@0900 08/01/20 08/15/20 History Elemental)] Levothyroxine Sodium [Synthroid] 112 mcg PO DAILY@0600 08/01/20 08/15/20 History Vit C/E/Zn/Coppr/Lutein/Zeaxan 1 tab PO DAILY@0900 08/01/20 08/15/20 History [Preservision Areds 2 Softgel] Furosemide [Lasix] 40 mg PO BID@0900,1600 #60 tab 08/05/20 08/15/20 Rx Apixaban [Eliquis] 2.5 mg PO BID@0900,209908/15/20 08/15/20 History Budesonide [Pulmicort] 0.5 mg INHALATION RT-BID@0900,209908/15/20 08/15/20 History Metoprolol Tartrate [Lopressor] 25 mg PO BID@0900,209908/15/20 08/15/20 History Omeprazole [PriLOSEC] 40 mg PO DAILY@0900 08/15/20 08/15/20 History Allergies Allergy/AdvReac Type Severity Reaction Status Date / Time No Known Allergies Allergy Verified 08/15/20 15:44 Physical Exam Vitals: Vital Signs Temp Pulse Pulse Resp BP Pulse Ox 08/16/20 12:00 98.1 F 113 H 18 107/54 97 08/16/20 08:57 108 H 08/16/20 08:47 100 08/16/20 08:00 96.6 F L 131 H 108/56 97 08/16/20 04:00 62 20 104/58 96 08/16/20 00:00 64 18 108/55 97 08/15/20 20:52 112 H 08/15/20 20:00 98.1 F 107 H 18 108/55 97 08/15/20 16:00 98 F 99 22 106/55 96 Intake and Output 08/15/20 08/16/20 08/16/20 22:59 06:59 14:59 Intake Total 222 350 460 Balance 222 350 460 Intake: Oral 222 350 460 Other: Voiding Method Bedside Commode Bedside Commode Bedside Commode # Voids 0 # Bowel Movements 1 1 Weight 59.5 kg 61 kg On physical examination, patient appears comfortable in no apparent distress. HEAD: Normocephalic, atraumatic. EYES: No scleral icterus. No conjunctival injection. MOUTH: No lesions, tongue midline. NECK: Trachea midline, no gross abnormalities. CHEST: Clear to auscultation with no wheezing or rhonchi appreciated. HEART: S1-S2 appreciated. ABDOMEN: Soft, thin. Bowel sounds are positive. No organomegaly. No guarding or rigidity. EXTREMITIES: No rashes noted, or pallor or jaundice. SKIN: No rashes, no jaundice. NEUROLOGIC: Alert and oriented x3. No focal deficits. Results CBC & Chem 7: 08/16/20 07:03 08/16/20 07:03 Labs: Abnormal Lab Results - Last 24 Hours (Table) 08/15/20 08/15/20 08/16/20 Range/Units 16:48 16:48 07:03 WBC 2.3 L 2.2 L (3.8-10.6) k/uL RBC 2.32 L 2.40 L (3.80-5.40) m/uL Hgb 7.2 L 7.3 L (11.4-16.0) gm/dL Hct 21.8 L 23.1 L (34.0-46.0) % RDW 17.9 H 18.5 H (11.5-15.5) % Plt Count 28 L D 38 L (150-450) k/uL Blast Cells % 17 H* 21 H* % Neutrophils # (Manual) 1.20 L 1.20 L (1.3-7.7) k/uL Lymphocytes # (Manual) 0.46 L 0.37 L (1.0-4.8) k/uL Metamyelocytes # (Man) 0.05 H 0.07 H (0) k/uL Myelocytes # (Manual) 0.02 H 0.02 H (0) k/uL Promyelocytes # (Man) 0.05 H (0) k/uL Blast Cells # (Man) 0.39 H 0.46 H (0) k/uL APTT 32.7 H (22.0-30.0) sec Potassium (3.5-5.1) mmol/L BUN (7-17) mg/dL Creatinine (0.52-1.04) mg/dL Glucose (74-99) mg/dL 08/16/20 Range/Units 07:03 WBC (3.8-10.6) k/uL RBC (3.80-5.40) m/uL Hgb (11.4-16.0) gm/dL Hct (34.0-46.0) % RDW (11.5-15.5) % Plt Count (150-450) k/uL Blast Cells % % Neutrophils # (Manual) (1.3-7.7) k/uL Lymphocytes # (Manual) (1.0-4.8) k/uL Metamyelocytes # (Man) (0) k/uL Myelocytes # (Manual) (0) k/uL Promyelocytes # (Man) (0) k/uL Blast Cells # (Man) (0) k/uL APTT (22.0-30.0) sec Potassium 3.3 L (3.5-5.1) mmol/L BUN 61 H (7-17) mg/dL Creatinine 1.41 H (0.52-1.04) mg/dL Glucose 111 H (74-99) mg/dL Chest x-ray: report reviewed (Evidence of CHF on CXR) Assessment and Plan (1) Diarrhea Narrative/Plan: 84-year-old female with multiple medical comorbidities who presented to the hospital due to weakness, anemia and shortness of breath. Patient has a known history of pancytopenia which is currently being evaluated by the hematology/oncology service. She denies any signs or symptoms of GI bleeding. She does report approximately 4 days of frequent loose bowel movements worsened with eating or movement. The patient's daughter who is bedside and helps with the history reports that she did have positive testing for C. difficile prior to transfer to this hospital. Current Visit: Yes Status: Acute Code(s): R19.7 - DIARRHEA, UNSPECIFIED SNOMED Code(s): 34423463 (2) Weakness Current Visit: Yes Status: Acute Code(s): R53.1 - WEAKNESS SNOMED Code(s): 04451696 (3) Pancytopenia Current Visit: No Status: Acute Code(s): D61.818 - OTHER PANCYTOPENIA SNOMED Code(s): 691048749 Plan: Supportive care Clear liquid diet Vancomycin p.o. every 6 hours Cholestyramine for stool bulking Continue to monitor CBC, BMP, LFTs Hold off on antidiarrheal at this time in the setting of suspected C. difficile infection We will request records from outside facility to confirm positive test for C. difficile Thank you for allowing us to participate in the care of the patient
[2020-08-17] MEDS: BUDESONIDE 0.5 MG/2 ML NEBU INHALATION SCH ×2 (09:05→19:25)
[2020-08-17] MEDS: ALBUTEROL NEBULIZED 2.5 MG/3 ML INHALATION PRN (09:05)
[2020-08-17 09:10] LABS: Calcium 8.7 mg/dL (8.4-10.2); Potassium 3.8 mmol/L (3.5-5.1)
[2020-08-17 09:11] LABS: Anisocytosis Slight; HCT 20.8 % (34.0-46.0); Hypochromasia Moderate; MCHC 30.3 g/dL (31.0-37.0); Macrocytosis Slight; Mean Platelet Volume 16.4; Platelet Count 41 k/uL (150-450); RDW 18.3 % (11.5-15.5); WBC 1.7 k/uL (3.8-10.6)
[2020-08-17] MEDS: FERROUS SULFATE 325 MG TAB PO SCH (09:13)
[2020-08-17] MEDS: FUROSEMIDE 40 MG TAB PO SCH ×2 (09:13→17:02)
[2020-08-17] MEDS: CHOLECALCIFEROL 1,000 UNIT TAB PO SCH (09:13)
[2020-08-17] MEDS: PANTOPRAZOLE 40 MG TABLET PO SCH (09:13)
[2020-08-17] MEDS: VIT A,C & E-LUTEIN-MINERALS 1 EACH TAB PO SCH (09:13)
[2020-08-17] MEDS: CHOLESTYRAMINE (WITH SUGAR) 4 GM PACKET PO SCH ×2 (09:14→17:02)
[2020-08-17] MEDS: METOPROLOL TARTRATE 25 MG TAB PO SCH ×2 (09:14→22:06)
[2020-08-17] MEDS: DORZOLAMIDE HCL 2% DROPS 10 ML BTL BOTH EYES SCH ×2 (09:14→22:05)
[2020-08-17 09:29] LABS: HGB 6.3 gm/dL (11.4-16.0)
[2020-08-17 11:03] LABS: Band Neutrophils % 2 %; Metamyelocytes # (M) 0.02 k/uL (0); Metamyelocytes % 1 %; Monocytes # (M) 0.03 k/uL (0-1.0); Neutrophils % (M) 47 %
[2020-08-17 11:04] LABS: Blast Cells # (M) 0.22 k/uL (0); Nucleated Red Blood Cells 2 /100 WBC (0-0); Total Cells Counted 100
[2020-08-17 11:05] LABS: Poikilocytosis (M) Present; Polychromasia Present
--- NOTE | 2020-08-17 12:29 | P.PN ---
Subjective Progress Note Date: 08/17/20 Principal diagnosis: Diarrhea Patient seen and examined at the bedside lying in bed. She states her diarrhea has improved and has actually become more formed. She is denying any nausea, vomiting, or abdominal pain. She's been afebrile. She is currently on vancomycin oral every 6 hours and Questran. She is tolerating a clear liquid diet. Objective - Vital Signs Vital signs: Vital Signs Temp 96.6 F L 08/17/20 09:03 Pulse 104 H 08/17/20 11:33 Resp 18 08/17/20 11:33 BP 99/54 08/17/20 11:33 Pulse Ox 98 08/17/20 11:33 Intake & Output 08/16/20 08/17/20 08/17/20 18:59 06:59 18:59 Intake Total 640 125 Balance 640 125 Weight 61 kg Intake: Oral 640 125 Other: Voiding Method Bedside Commode Bedside Commode # Voids 2 1 1 # Bowel Movements 1 - Exam General appearance: The patient is alert, oriented, in no acute distress. HET: Head is normocephalic and atraumatic. Conjunctiva pink. Sclera anicteric. Neck: Supple without lymphadenopathy. Abdomen: Soft, nontender, nondistended with bowel sounds. No guarding or rigidity. Extremities: Normal skin color and turgor. No pedal edema Neurological: No focal deficits. Alert and oriented 3. - Labs CBC & Chem 7: 08/17/20 08:12 08/17/20 08:12 Labs: Abnormal Lab Results - Last 24 Hours (Table) 08/17/20 08/17/20 Range/Units 08:12 08:12 WBC 1.7 L (3.8-10.6) k/uL RBC 2.10 L (3.80-5.40) m/uL Hgb 6.3 L* (11.4-16.0) gm/dL Hct 20.8 L (34.0-46.0) % MCHC 30.3 L (31.0-37.0) g/dL RDW 18.3 H (11.5-15.5) % Plt Count 41 L (150-450) k/uL Blast Cells % 13 H* % Neutrophils # (Manual) 0.80 L (1.3-7.7) k/uL Lymphocytes # (Manual) 0.60 L (1.0-4.8) k/uL Metamyelocytes # (Man) 0.02 H (0) k/uL Blast Cells # (Man) 0.22 H (0) k/uL Nucleated RBCs 2 H (0-0) /100 WBC Sodium 136 L (137-145) mmol/L BUN 61 H (7-17) mg/dL Creatinine 1.37 H (0.52-1.04) mg/dL Glucose 145 H (74-99) mg/dL Microbiology - Last 24 Hours (Table) 08/16/20 11:42 Stool Culture - Preliminary Stool Assessment and Plan (1) Diarrhea Narrative/Plan: A 84-year-old female with multiple medical comorbidities who presented to the hospital due to weakness, anemia and shortness of breath. The patient has a known history of pancytopenia which is currently being evaluated by the hematology/oncology service. She denies any signs or symptoms of GI bleeding. She does report approximately 4 days of frequent loose bowel movements worsened with eating. The shunt had a positive Clostridium difficiletoxin through [facility], for was negative here admission. Current Visit: Yes Status: Acute Code(s): R19.7 - DIARRHEA, UNSPECIFIED SNOMED Code(s): 35446184 (2) Weakness Current Visit: Yes Status: Acute Code(s): R53.1 - WEAKNESS SNOMED Code(s): 42150380 (3) Pancytopenia Current Visit: No Status: Acute Code(s): D61.818 - OTHER PANCYTOPENIA SNOMED Code(s): 611858292 Plan: Portable care Advance to full liquid diet Vancomycin by mouth every 6 hours Cholestyromine for stool bulking Continue to monitor CBC, BMP, LFTs Hold off on antidiarrheals for suspected C. difficile infection The impression and plan of care has been dictated as directed. I performed a history and examination of this patient, discussed the same with the dictator. I agree with the dictator's note ,documented as a scribe. Any additional findings or plans will be noted.
--- NOTE | 2020-08-17 13:11 | P.PN ---
Subjective Progress Note Date: 08/17/20 this is a pleasant 84-year-old female with history of mitral and aortic regurgitation, sarcoidosis, hypothyroidism, persistent atrial fibrillation, who was recently in the hospital for anemia, received blood transfusion and was discharged home. She presented to the hospital on this occasion because of sy mptoms of shortness of breath. She was also complaining of feeling significantly fatigued. Her hemoglobin was down to 6.5 she underwent another blood transfusion and was sent home. Again the patient went to [facility] with similar symptoms and was subsequently transferred here. An echo cardiogram with Doppler study which was performed on her last admission showed a normal LV systolic function with mild aortic stenosis and mild and tricuspid regurgitation. Patient was seen and examined this morning, does appear to be fatigued today as well although states that she's feeling a little bit stronger overall. Because of the patient's anemia requiring blood transfusion, she is not a candidate for oral anticoagulation and therefore this is been discontinued.chest x-ray was performed today which showed congestive heart failure, pulmonary edema, pneumonia and small effusion.her blood pressure 108/60 with a heart rate of 110, 97% on 3 L of oxygen.White blood cell count 2.2, hemoglobin 7.3, platelet count 38.sodium 137, potassium 3.3, BUN 61, creatinine 1.4, magnesium 2.2. 08/17/2020 Patient seen and examined this morning, complaining of feeling extremely weak today. Her hemoglobin today is down to 6.3, platelet count 41. Sodium 136, potassium 3.8, BUN 61, creatinine 1.3. Objective - Vital Signs Vital signs: Vital Signs Temp 96.6 F L 08/17/20 09:03 Pulse 104 H 08/17/20 11:33 Resp 18 08/17/20 11:33 BP 99/54 08/17/20 11:33 Pulse Ox 98 08/17/20 11:33 Intake & Output 08/16/20 08/17/20 08/17/20 18:59 06:59 18:59 Intake Total 640 125 Balance 640 125 Weight 61 kg Intake: Oral 640 125 Other: Voiding Method Bedside Commode Bedside Commode # Voids 2 1 1 # Bowel Movements 1 - Exam PHYSICAL EXAMINATION: GENERAL:84-year-old female in no acute distress at the time of my examination HEENT: Head is atraumatic, normocephalic. Pupils equal, round. Sclera anicteric. Conjunctiva are clear. Mucous membranes of the mouth are moist. Neck is supple. There is no elevated jugular venous pressure.no carotid bruit is heard. HEART EXAMINATION: [Heart S1, S2 irregularly irregular systolic ejection murmur is heard CHEST EXAMINATION:[ Lungs reveal scattered coarse rhonchi, diminished air entry to the bases bilaterally ABDOMEN: [ Soft, nontender. Bowel sounds are heard. No organomegaly noted]. EXTREMITIES:[ 2+ peripheral pulses with no evidence of peripheral edema and no calf tenderness noted]. NEUROLOGIC [patient is awake, alert and oriented 3 . - Labs CBC & Chem 7: 08/17/20 08:12 08/17/20 08:12 Labs: Abnormal Lab Results - Last 24 Hours (Table) 08/17/20 08/17/20 Range/Units 08:12 08:12 WBC 1.7 L (3.8-10.6) k/uL RBC 2.10 L (3.80-5.40) m/uL Hgb 6.3 L* (11.4-16.0) gm/dL Hct 20.8 L (34.0-46.0) % MCHC 30.3 L (31.0-37.0) g/dL RDW 18.3 H (11.5-15.5) % Plt Count 41 L (150-450) k/uL Blast Cells % 13 H* % Neutrophils # (Manual) 0.80 L (1.3-7.7) k/uL Lymphocytes # (Manual) 0.60 L (1.0-4.8) k/uL Metamyelocytes # (Man) 0.02 H (0) k/uL Blast Cells # (Man) 0.22 H (0) k/uL Nucleated RBCs 2 H (0-0) /100 WBC Sodium 136 L (137-145) mmol/L BUN 61 H (7-17) mg/dL Creatinine 1.37 H (0.52-1.04) mg/dL Glucose 145 H (74-99) mg/dL Microbiology - Last 24 Hours (Table) 08/16/20 11:42 Stool Culture - Preliminary Stool Assessment and Plan Plan: assessment and plan #1 severe symptomatic anemia, patient has had recent blood transfusions #2 sarcoidosis with respiratory insufficiency #3 chronic persistent atrial fibrillation Plan From cardiology's perspective, patient will not be reinitiated on anticoagulation. Hematology consultation has been requested. DNP note has been reviewed, I agree with a documented findings and plan of care. Patient was seen and examined.
--- NOTE | 2020-08-17 14:56 | P.CONS ---
History of Present Illness - Reason for Consult Consult date: 08/17/20 Pancytopenias Requesting physician: Jefferson E Sheet - Chief Complaint sob - History of Present Illness The patient is an 84-year-old white female with multiple medical problems. Know history includes sarcoidosis, chronic lung infiltrates and pneumonia in the past. The patient was admitted to the hospital in 2015 and at that time was noted to have a bicytopenia, the WBC in the L3-4 thousand range, hemoglobin in the 9-10,000 range and platelets normal. The patient subsequently was evaluated by hematology, Dr. Kim , at [facility]. The patient states that she had lab workup which was negative. She denies having a bone marrow aspiration biopsy. She states that she has been on follow-up once a year as her counts have been stable. Her next visit was due in 09/02. The patient wanted to [facility] with increasing shortness of breath a few weeks ago. She has a chronic cough with mild whitish expectoration which is unchanged. She was found to have atrial fibrillation with rapid ventricular response and was transferred here. During that recent hospitalization she was seen and evaluated by us for her pancytopenia. SHe was also given a 4 day course of Dexamethasone for concern of progressive cytopnieas likely contribution of Multiple myeloma. CTA last admission was negative for evidence of PE. This showed bilateral interstitial infiltrates, somewhat more prominent at the bases with bilateral pleural effusions. In addition she was noted to have paratracheal, anterior mediastinal and bronchial lymph nodes, with the largest up to 2.2 cm in the paratracheal area. CBC this recent past admission showed hemoglobin in the 7-8 range, platelets in the 120-140 range, and WBC of 1.2-1.3 with ANC. She now re-presents with similiar complaints. Review of Systems All systems: negative Constitutional: Reports as per HPI Past Medical History Past Medical History: Atrial Fibrillation, COPD, Pneumonia, Thyroid Disorder Additional Past Medical History / Comment(s): sarcoidosis, right side pleurisy, hypothyroidism History of Any Multi-Drug Resistant Organisms: None Reported Past Surgical History: Cholecystectomy Additional Past Surgical History / Comment(s): mediastinoscopy 2010 Past Anesthesia/Blood Transfusion Reactions: No Reported Reaction Past Psychological History: No Psychological Hx Reported Smoking Status: Former smoker Past Alcohol Use History: None Reported Past Drug Use History: None Reported - Past Family History Mother Family Medical History: Diabetes Mellitus Father Family Medical History: Cancer Medications and Allergies Home Medications Medication Instructions Recorded Confirmed Type Albuterol Nebulized [Ventolin 2.5 mg INHALATION Q6H PRN 12/22/15 08/15/20 History Nebulized] Cholecalciferol [Vitamin D3 (25 5,000 unit PO DAILY@0900 12/22/15 08/15/20 History Mcg = 1000 Iu)] Latanoprost [Xalatan 0.005%] 1 drop BOTH EYES HS@209912/22/15 08/15/20 History Dorzolamide HCl [Trusopt 2%] 1 drop BOTH EYES BID@0900,209908/01/20 08/15/20 History Ferrous Sulfate [Iron (65 MG 325 mg PO DAILY@89908/01/20 08/15/20 History Elemental)] Levothyroxine Sodium [Synthroid] 112 mcg PO DAILY@0600 08/01/20 08/15/20 History Vit C/E/Zn/Coppr/Lutein/Zeaxan 1 tab PO DAILY@0900 08/01/20 08/15/20 History [Preservision Areds 2 Softgel] Furosemide [Lasix] 40 mg PO BID@0900,1600 #60 tab 08/05/20 08/15/20 Rx Apixaban [Eliquis] 2.5 mg PO BID@0900,209908/15/20 08/15/20 History Budesonide [Pulmicort] 0.5 mg INHALATION RT-BID@0900,209908/15/20 08/15/20 History Metoprolol Tartrate [Lopressor] 25 mg PO BID@0900,209908/15/20 08/15/20 History Omeprazole [PriLOSEC] 40 mg PO DAILY@0900 08/15/20 08/15/20 History Allergies Allergy/AdvReac Type Severity Reaction Status Date / Time No Known Allergies Allergy Verified 08/15/20 15:44 Physical Exam Vitals: Vital Signs Temp Pulse Pulse Resp BP Pulse Ox 08/17/20 11:33 104 H 18 99/54 98 08/17/20 09:21 104 H 08/17/20 09:05 100 08/17/20 09:03 96.6 F L 100 16 116/58 99 08/17/20 04:00 108 H 18 08/17/20 03:59 108 H 18 106/60 99 08/17/20 00:00 107 H 16 123/58 100 08/16/20 20:59 102 H 08/16/20 20:45 100 08/16/20 20:00 98 F 103 H 18 106/55 98 08/16/20 19:30 98 F 103 H 18 106/55 97 08/16/20 17:46 98 F 103 H 20 103/58 96 08/16/20 15:55 98.0 F 110 H 18 132/64 96 Intake and Output 08/16/20 08/17/20 08/17/20 22:59 06:59 14:59 Intake Total 180 125 Balance 180 125 Intake: Oral 180 125 Other: Voiding Method Bedside Commode Bedside Commode # Voids 2 1 1 Weight 61 kg - Constitutional General appearance: Present: mild distress - EENT Eyes: Present: EOMI, PERRLA ENT: Present: hearing grossly normal, normal oropharynx - Respiratory Respiratory: bilateral: rales, prolonged expiration - Cardiovascular Rhythm: irregularly irregular Heart sounds: normal: S1, S2 - Gastrointestinal General gastrointestinal: Present: normal bowel sounds, soft - Neurologic Neurologic: Present: CNII-XII intact - Musculoskeletal Musculoskeletal: Present: generalized weakness, strength equal bilaterally - Psychiatric Psychiatric: Present: A&O x's 3, appropriate affect Results CBC & Chem 7: 08/18/20 07:56 08/18/20 07:56 Labs: Abnormal Lab Results - Last 24 Hours (Table) 08/17/20 08/17/20 Range/Units 08:12 08:12 WBC 1.7 L (3.8-10.6) k/uL RBC 2.10 L (3.80-5.40) m/uL Hgb 6.3 L* (11.4-16.0) gm/dL Hct 20.8 L (34.0-46.0) % MCHC 30.3 L (31.0-37.0) g/dL RDW 18.3 H (11.5-15.5) % Plt Count 41 L (150-450) k/uL Blast Cells % 13 H* % Neutrophils # (Manual) 0.80 L (1.3-7.7) k/uL Lymphocytes # (Manual) 0.60 L (1.0-4.8) k/uL Metamyelocytes # (Man) 0.02 H (0) k/uL Blast Cells # (Man) 0.22 H (0) k/uL Nucleated RBCs 2 H (0-0) /100 WBC Sodium 136 L (137-145) mmol/L BUN 61 H (7-17) mg/dL Creatinine 1.37 H (0.52-1.04) mg/dL Glucose 145 H (74-99) mg/dL Microbiology - Last 24 Hours (Table) 08/16/20 11:42 Stool Culture - Preliminary Stool Assessment and Plan Plan: Pancytopenia: - Hemoglobin 6.3, WBC = 1.7today, ANC 0.6, Blasts 13% and platelets 41K. 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 The patient had 2 M protein's with total quantitation in the low 2 g/dL range. Although was on observation as her counts remained within safe ranges. - This admission appears to be noted change in her labs from her baseline. This could indicate progression of one or both of her underlying bone marrow conditions. Transient marrow compromise from her acute illness also remains in differential. Labs for deficiency states are negative. Persistent Atrial fibrillation with RVR - Symptomatic - Cardiology following - Unable to anticoagulate at this time platelet count less than 50K Acute Hypoxic Respiratory failure: - Continues to be significantly SOB - Pulm following - CHF (Diastolic) COPD exacerbation - A-fib with RVR - Unable to be anticoagulated with platelet count less than 50K - Symptomatic Anemia Status Post 08/05/20: dexamethasone 40mg PO x4 days at last discharge and was advised to see primary oncologist napoleon after last hospitalization Follow-up with normal outside front office coordinator within a week
[2020-08-17 15:12] LABS: Reticulocyte % 1.2 % (0.5-2.0)
[2020-08-17 15:21] LABS: Albumin 2.6 g/dL (3.5-5.0); Bilirubin, Delta 0.2 mg/dL (0.0-0.2); Bilirubin,Unconjugated 0.5 mg/dL (0.0-1.1); Magnesium 2.3 mg/dL (1.6-2.3); Phosphorus 3.5 mg/dL (2.5-4.5); Total Bilirubin 0.7 mg/dL (0.2-1.3); Total Protein 5.6 g/dL (6.3-8.2); Uric Acid 9.9 mg/dL (3.7-7.4)
[2020-08-17 15:24] LABS: Partial Thromboplastin Time 28.9 sec (22.0-30.0); Prothrombin Time 10.7 sec (9.0-12.0)
[2020-08-18 03:55] LABS: Folate, Serum 7.9 ng/mL
[2020-08-18 05:20] LABS: Protein, Total 5.2 g/dL (6.2-8.2)
[2020-08-18] MEDS: LEVOTHYROXINE 112 MCG TAB PO SCH (06:07)
[2020-08-18] MEDS: VANCOMYCIN 125 MG CAPSULE PO SCH ×4 (06:07→23:10)
[2020-08-18 06:14] LABS: % Iron Saturation 29.7 (12.00-45.00); Ferritin 2362.6 ng/mL (10.0-291.0)
[2020-08-18] MEDS: METOPROLOL TARTRATE 25 MG TAB PO SCH ×2 (08:52→20:32)
[2020-08-18] MEDS: FUROSEMIDE 40 MG TAB PO SCH ×2 (08:53→15:55)
[2020-08-18] MEDS: PANTOPRAZOLE 40 MG TABLET PO SCH (08:53)
[2020-08-18] MEDS: FERROUS SULFATE 325 MG TAB PO SCH (08:53)
[2020-08-18] MEDS: CHOLECALCIFEROL 1,000 UNIT TAB PO SCH (08:53)
[2020-08-18] MEDS: VIT A,C & E-LUTEIN-MINERALS 1 EACH TAB PO SCH (08:53)
[2020-08-18] MEDS: DORZOLAMIDE HCL 2% DROPS 10 ML BTL BOTH EYES SCH ×2 (08:53→20:31)
[2020-08-18] MEDS: CHOLESTYRAMINE (WITH SUGAR) 4 GM PACKET PO SCH ×2 (08:53→18:15)
[2020-08-18 09:10] LABS: Anisocytosis Slight; HCT 22.4 % (34.0-46.0); HGB 7.1 gm/dL (11.4-16.0); Hypochromasia Slight; MCH 30.4 pg (25.0-35.0); MCHC 31.8 g/dL (31.0-37.0); MCV 95.4 fL (80.0-100.0); Macrocytosis Slight; Poikilocytosis Slight; RBC 2.35 m/uL (3.80-5.40); RDW 17.6 % (11.5-15.5)
[2020-08-18 09:15] LABS: Calcium 8.7 mg/dL (8.4-10.2); Potassium 3.8 mmol/L (3.5-5.1)
[2020-08-18 09:32] LABS: Platelet Count 63 k/uL (150-450)
[2020-08-18] MEDS: BUDESONIDE 0.5 MG/2 ML NEBU INHALATION SCH ×2 (09:35→20:18)
--- NOTE | 2020-08-18 10:24 | P.PN ---
Subjective Progress Note Date: 08/16/20 Principal diagnosis: Symptomatic anemia Chronic persistent atrial fibrillation Patient is a 84-year-old female with a known history of mitral and aortic regurgitation, sarcoidosis, hypothyroidism and chronic CHF with diastolic dysfunction who was recently admitted to the hospital with atrial fibrillation with RVR and subsequently found to be profoundly anemic. Patient did receive blood transfusion and was discharged home. Patient initially presented to [facility] with complaints of shortness of breath and generalized weakness and poor oral intake. Patient was found to have hemoglobin level of 6.5 and underwent 1 unit of PRBC on Saturday. Again this morning patient was not feeling good and and her daughter took her to ER at [facility] where she has been found to have A. fib with RVR and was transferred to [facility] for evaluation. Patient was seen by hematology during recent admission. 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 dex 40mg po daily x4 was given. Echocardiogram obtained reveals preserved LV systolic function with ejection fraction 60-65%, mild aortic regurgitation, mild aortic stenosis with a mean gradient of 9 mmHg, mild MR with peak gradient across the mitral valve with 3 mmHg, mild TR and mild pulmonary hypertension with an RVSP of 41 mmHg. 08/16/2020 Patient is currently resting that. Still feeling short of breath and also having diarrhea. C. diff was sent. Hemoglobin improved to 7.8 today. Status post 1 unit of PRBC transfusion. Cardiology is following. No anticoagulation due to low platelets. Current medications reviewed. Objective - Vital Signs Vital signs: Vital Signs Temp 98.0 F 08/16/20 15:55 Pulse 110 H 08/16/20 15:55 Resp 18 08/16/20 15:55 BP 132/64 08/16/20 15:55 Pulse Ox 96 08/16/20 15:55 Intake & Output 08/15/20 08/16/20 08/16/20 18:59 06:59 18:59 Intake Total 222 350 460 Balance 222 350 460 Weight 59.5 kg 61 kg Intake: Oral 222 350 460 Other: Voiding Method Bedside Commode Bedside Commode # Voids 0 # Bowel Movements 1 1 - Exam PHYSICAL EXAMINATION: Patient is lying in the bed comfortably, no acute distress, awake alert and oriented. Lethargic.. HEENT: Normocephalic. Neck is supple. Pupils reactive. Nostrils clear. Oral cavity is moist. Ears reveal no drainage. Neck reveals no JVD, carotid bruits, or thyromegaly. CHEST EXAMINATION: Trachea is central. Symmetrical expansion. Bibasilar diminished air entry and crackles positive. CARDIAC: Normal S1, S2 with no gallops. No murmurs ABDOMEN: Soft. Bowel sounds normal. No organomegaly. No abdominal bruits. Extremities: reveal no edema. No clubbing or cyanosis Neurologically awake, alert, oriented x3 with well-coordinated movements. No focal deficits noted Skin: No rash or skin lesions. Psychiatric: Coperative. Nonsuicidal Musculoskeletal: No joint swelling or deformity. Normal range of motion. - Labs CBC & Chem 7: 08/18/20 07:56 08/18/20 07:56 Labs: Abnormal Lab Results - Last 24 Hours (Table) 08/15/20 08/15/20 08/16/20 Range/Units 16:48 16:48 07:03 WBC 2.3 L 2.2 L (3.8-10.6) k/uL RBC 2.32 L 2.40 L (3.80-5.40) m/uL Hgb 7.2 L 7.3 L (11.4-16.0) gm/dL Hct 21.8 L 23.1 L (34.0-46.0) % RDW 17.9 H 18.5 H (11.5-15.5) % Plt Count 28 L D 38 L (150-450) k/uL Blast Cells % 17 H* 21 H* % Neutrophils # (Manual) 1.20 L 1.20 L (1.3-7.7) k/uL Lymphocytes # (Manual) 0.46 L 0.37 L (1.0-4.8) k/uL Metamyelocytes # (Man) 0.05 H 0.07 H (0) k/uL Myelocytes # (Manual) 0.02 H 0.02 H (0) k/uL Promyelocytes # (Man) 0.05 H (0) k/uL Blast Cells # (Man) 0.39 H 0.46 H (0) k/uL APTT 32.7 H (22.0-30.0) sec Potassium (3.5-5.1) mmol/L BUN (7-17) mg/dL Creatinine (0.52-1.04) mg/dL Glucose (74-99) mg/dL 08/16/20 Range/Units 07:03 WBC (3.8-10.6) k/uL RBC (3.80-5.40) m/uL Hgb (11.4-16.0) gm/dL Hct (34.0-46.0) % RDW (11.5-15.5) % Plt Count (150-450) k/uL Blast Cells % % Neutrophils # (Manual) (1.3-7.7) k/uL Lymphocytes # (Manual) (1.0-4.8) k/uL Metamyelocytes # (Man) (0) k/uL Myelocytes # (Manual) (0) k/uL Promyelocytes # (Man) (0) k/uL Blast Cells # (Man) (0) k/uL APTT (22.0-30.0) sec Potassium 3.3 L (3.5-5.1) mmol/L BUN 61 H (7-17) mg/dL Creatinine 1.41 H (0.52-1.04) mg/dL Glucose 111 H (74-99) mg/dL Assessment and Plan Assessment: Symptomatic anemia .s/p transfusion hemoglobin level improving. Acute Diarrhea. R/o Cdiff. Chronic CHF with diastolic function Persistent atrial fibrillation. 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 SCDs Plan: Patient will be continued on telemetry monitoring. started back on loppressor.Eliquis is on hold.. Started on Heparin Drip. And apparently patient has been discontinued. Cardiology is following Continue with Lopressor and Lasix and other home medications. Monitor H&H and transfuse if hemoglobin is less than 7. Time with Patient: Greater than 30
--- NOTE | 2020-08-18 10:27 | P.PN ---
Subjective Progress Note Date: 08/17/20 Principal diagnosis: Symptomatic anemia Chronic persistent atrial fibrillation Patient is a 84-year-old female with a known history of mitral and aortic regurgitation, sarcoidosis, hypothyroidism and chronic CHF with diastolic dysfunction who was recently admitted to the hospital with atrial fibrillation with RVR and subsequently found to be profoundly anemic. Patient did receive blood transfusion and was discharged home. Patient initially presented to [facility] with complaints of shortness of breath and generalized weakness and poor oral intake. Patient was found to have hemoglobin level of 6.5 and underwent 1 unit of PRBC on Saturday. Again this morning patient was not feeling good and and her daughter took her to ER at [facility] where she has been found to have A. fib with RVR and was transferred to [facility] for evaluation. Patient was seen by hematology during recent admission. 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 dex 40mg po daily x4 was given. Echocardiogram obtained reveals preserved LV systolic function with ejection fraction 60-65%, mild aortic regurgitation, mild aortic stenosis with a mean gradient of 9 mmHg, mild MR with peak gradient across the mitral valve with 3 mmHg, mild TR and mild pulmonary hypertension with an RVSP of 41 mmHg. 08/16/2020 Patient is currently resting that. Still feeling short of breath and also having diarrhea. C. diff was sent. Hemoglobin improved to 7.8 today. Status post 1 unit of PRBC transfusion. Cardiology is following. No anticoagulation due to low platelets. 08/17/2020 Patient says that she is feeling very weak today. Hemoglobin dropped down to 6.3 and will be transfused with 1 unit of PRBC. Patient will be continued on Lasix due to pulmonary vascular congestion and continue with metoprolol. Heart rate is still elevated at 100. Audiology is on board. Not accomplished due to low platelet count. Due to pancytopenia and history of abnormal bone marrow and suspected myelodysplastic, oncology was consulted. C. diff was positive at [facility]. Started on vancomycin by mouth. Patient to be transfused with irradiated RBCs and required. Current medications reviewed. Objective - Vital Signs Vital signs: Vital Signs Temp 98.6 F 08/17/20 20:00 Pulse 110 H 08/17/20 20:00 Resp 18 08/17/20 20:00 BP 106/58 08/17/20 20:00 Pulse Ox 100 08/17/20 20:00 Intake & Output 08/17/20 08/17/20 08/18/20 06:59 18:59 06:59 Intake Total 995 Balance 995 Weight 61 kg Intake: Oral 375 Blood Product 620 Rc As-1 Unit 310 [id number] Other: Voiding Method Bedside Commode # Voids 1 1 # Bowel Movements 1 - Exam PHYSICAL EXAMINATION: Patient is lying in the bed comfortably, no acute distress, awake alert and oriented. Lethargic.. HEENT: Normocephalic. Neck is supple. Pupils reactive. Nostrils clear. Oral cavity is moist. Ears reveal no drainage. Neck reveals no JVD, carotid bruits, or thyromegaly. CHEST EXAMINATION: Trachea is central. Symmetrical expansion. Bibasilar diminished air entry and crackles positive. CARDIAC: Normal S1, S2 with no gallops. No murmurs ABDOMEN: Soft. Bowel sounds normal. No organomegaly. No abdominal bruits. Extremities: reveal no edema. No clubbing or cyanosis Neurologically awake, alert, oriented x3 with well-coordinated movements. No focal deficits noted Skin: No rash or skin lesions. Psychiatric: Coperative. Nonsuicidal Musculoskeletal: No joint swelling or deformity. Normal range of motion. - Labs CBC & Chem 7: 08/18/20 07:56 08/18/20 07:56 Labs: Abnormal Lab Results - Last 24 Hours (Table) 08/16/20 08/17/20 08/17/20 Range/Units 11:42 08:12 08:12 WBC 1.7 L (3.8-10.6) k/uL RBC 2.10 L (3.80-5.40) m/uL Hgb 6.3 L* (11.4-16.0) gm/dL Hct 20.8 L (34.0-46.0) % MCHC 30.3 L (31.0-37.0) g/dL RDW 18.3 H (11.5-15.5) % Plt Count 41 L (150-450) k/uL Blast Cells % 13 H* % Neutrophils # (Manual) 0.80 L (1.3-7.7) k/uL Lymphocytes # (Manual) 0.60 L (1.0-4.8) k/uL Metamyelocytes # (Man) 0.02 H (0) k/uL Blast Cells # (Man) 0.22 H (0) k/uL Nucleated RBCs 2 H (0-0) /100 WBC Sodium 136 L (137-145) mmol/L BUN 61 H (7-17) mg/dL Creatinine 1.37 H (0.52-1.04) mg/dL Glucose 145 H (74-99) mg/dL Uric Acid (3.7-7.4) mg/dL AST (14-36) U/L Lactate Dehydrogenase (313-618) U/L Total Protein (6.3-8.2) g/dL Albumin (3.5-5.0) g/dL Stool Lactoferrin POSITIVE A (NEGATIVE) Crossmatch 08/17/20 08/17/20 Range/Units 14:56 14:57 WBC (3.8-10.6) k/uL RBC (3.80-5.40) m/uL Hgb (11.4-16.0) gm/dL Hct (34.0-46.0) % MCHC (31.0-37.0) g/dL RDW (11.5-15.5) % Plt Count (150-450) k/uL Blast Cells % % Neutrophils # (Manual) (1.3-7.7) k/uL Lymphocytes # (Manual) (1.0-4.8) k/uL Metamyelocytes # (Man) (0) k/uL Blast Cells # (Man) (0) k/uL Nucleated RBCs (0-0) /100 WBC Sodium (137-145) mmol/L BUN (7-17) mg/dL Creatinine (0.52-1.04) mg/dL Glucose (74-99) mg/dL Uric Acid 9.9 H (3.7-7.4) mg/dL AST 12 L (14-36) U/L Lactate Dehydrogenase 695 H (313-618) U/L Total Protein 5.6 L (6.3-8.2) g/dL Albumin 2.6 L (3.5-5.0) g/dL Stool Lactoferrin (NEGATIVE) Crossmatch See Detail Microbiology - Last 24 Hours (Table) 08/16/20 11:42 Stool Culture - Preliminary Stool Assessment and Plan Assessment: Symptomatic anemia .s/p transfusion hemoglobin level improving. Acute Diarrhea. Positive Cdiff at [facility]. 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 History of inactive quiescent sarcoidosis Hypothyroidism Valvular heart disease Pancytopenia COPD not in exacerbation DVT Proph. SCDs Plan: Patient will be continued on telemetry monitoring. Patient was started on vancomycin by mouth started back on loppressor.Eliquis is on hold.. Started on Heparin Drip. Anticoagulation has been discontinued. Cardiology is following Continue with Lopressor and Lasix and other home medications. Monitor H&H and transfuse if hemoglobin is less than 7. Time with Patient: Greater than 30
[2020-08-18 11:21] LABS: Band Neutrophils % 6 %; Basophils # (M) 0.04 k/uL (0-0.2); Eosinophils # (M) 0.06 k/uL (0-0.7); Lymphocytes # (M) 0.38 k/uL (1.0-4.8); Metamyelocytes # (M) 0.02 k/uL (0); Metamyelocytes % 1 %; Monocytes # (M) 0.06 k/uL (0-1.0); Neutrophils % (M) 56 %
[2020-08-18 11:22] LABS: Blast Cells # (M) 0.24 k/uL (0); Nucleated Red Blood Cells 0 /100 WBC (0-0); Total Cells Counted 200
--- NOTE | 2020-08-18 12:32 | P.PN ---
Subjective Progress Note Date: 08/18/20 this is a pleasant 84-year-old female with history of mitral and aortic regurgitation, sarcoidosis, hypothyroidism, persistent atrial fibrillation, who was recently in the hospital for anemia, received blood transfusion and was discharged home. She presented to the hospital on this occasion because of sy mptoms of shortness of breath. She was also complaining of feeling significantly fatigued. Her hemoglobin was down to 6.5 she underwent another blood transfusion and was sent home. Again the patient went to [facility] with similar symptoms and was subsequently transferred here. An echo cardiogram with Doppler study which was performed on her last admission showed a normal LV systolic function with mild aortic stenosis and mild and tricuspid regurgitation. Patient was seen and examined this morning, does appear to be fatigued today as well although states that she's feeling a little bit stronger overall. Because of the patient's anemia requiring blood transfusion, she is not a candidate for oral anticoagulation and therefore this is been discontinued.chest x-ray was performed today which showed congestive heart failure, pulmonary edema, pneumonia and small effusion.her blood pressure 108/60 with a heart rate of 110, 97% on 3 L of oxygen.White blood cell count 2.2, hemoglobin 7.3, platelet count 38.sodium 137, potassium 3.3, BUN 61, creatinine 1.4, magnesium 2.2. 08/17/2020 Patient seen and examined this morning, complaining of feeling extremely weak today. Her hemoglobin today is down to 6.3, platelet count 41. Sodium 136, potassium 3.8, BUN 61, creatinine 1.3. 08/18/2020 Patient seen and examined this morning, continues to feel quite weak. Blood pressure 94/60 with a heart rate of 90 to low 100, 94% on 2 L of oxygen. White blood cell count 2.0, hemoglobin 7.1, platelet count 63. Sodium 136, potassium 3.8, BUN 48, creatinine 1.6. Objective - Vital Signs Vital signs: Vital Signs Temp 98.0 F 08/18/20 08:00 Pulse 102 H 08/18/20 11:28 Resp 16 08/18/20 11:28 BP 93/55 08/18/20 11:28 Pulse Ox 94 L 08/18/20 11:28 Intake & Output 08/17/20 08/18/20 08/18/20 18:59 06:59 18:59 Intake Total 995 240 120 Balance 995 240 120 Weight 60.2 kg Intake: Oral 375 240 120 Blood Product 620 Rc As-1 Unit 310 [id number] Other: # Voids 1 1 1 # Bowel Movements 1 - Exam PHYSICAL EXAMINATION: GENERAL:84-year-old female in no acute distress at the time of my examination HEENT: Head is atraumatic, normocephalic. Pupils equal, round. Sclera anicteric. Conjunctiva are clear. Mucous membranes of the mouth are moist. Neck is supple. There is no elevated jugular venous pressure.no carotid bruit is heard. HEART EXAMINATION: [Heart S1, S2 irregularly irregular systolic ejection murmur is heard CHEST EXAMINATION:[ Lungs reveal scattered coarse rhonchi, diminished air entry to the bases bilaterally ABDOMEN: [ Soft, nontender. Bowel sounds are heard. No organomegaly noted]. EXTREMITIES:[ 2+ peripheral pulses with no evidence of peripheral edema and no calf tenderness noted]. NEUROLOGIC [patient is awake, alert and oriented 3 . - Labs CBC & Chem 7: 08/18/20 07:56 08/18/20 07:56 Labs: Abnormal Lab Results - Last 24 Hours (Table) 08/16/20 08/17/20 08/17/20 Range/Units 11:42 14:56 14:57 WBC (3.8-10.6) k/uL RBC (3.80-5.40) m/uL Hgb (11.4-16.0) gm/dL Hct (34.0-46.0) % RDW (11.5-15.5) % Plt Count (150-450) k/uL Blast Cells % % Neutrophils # (Manual) (1.3-7.7) k/uL Lymphocytes # (Manual) (1.0-4.8) k/uL Metamyelocytes # (Man) (0) k/uL Blast Cells # (Man) (0) k/uL Pathologist Review Sodium (137-145) mmol/L BUN (7-17) mg/dL Creatinine (0.52-1.04) mg/dL Glucose (74-99) mg/dL Uric Acid (3.7-7.4) mg/dL Iron (50-170) ug/dL TIBC (228-460) ug/dL Ferritin (10.0-291.0) ng/mL AST (14-36) U/L Lactate Dehydrogenase (313-618) U/L Total Protein (6.3-8.2) g/dL Total Protein (PEP) (6.2-8.2) g/dL Albumin (3.5-5.0) g/dL Vitamin B12 2769.0 H (200.0-944.0) pg/mL Stool Lactoferrin POSITIVE A (NEGATIVE) Free [place] LC, Quant (0.33-1.94) mg/dL Free [place] LC, Quant (0.57-2.63) mg/dL Crossmatch See Detail 08/17/20 08/17/20 08/17/20 Range/Units 14:57 14:57 14:57 WBC (3.8-10.6) k/uL RBC (3.80-5.40) m/uL Hgb (11.4-16.0) gm/dL Hct (34.0-46.0) % RDW (11.5-15.5) % Plt Count (150-450) k/uL Blast Cells % % Neutrophils # (Manual) (1.3-7.7) k/uL Lymphocytes # (Manual) (1.0-4.8) k/uL Metamyelocytes # (Man) (0) k/uL Blast Cells # (Man) (0) k/uL Pathologist Review See comment A Sodium (137-145) mmol/L BUN (7-17) mg/dL Creatinine (0.52-1.04) mg/dL Glucose (74-99) mg/dL Uric Acid 9.9 H (3.7-7.4) mg/dL Iron 49 L (50-170) ug/dL TIBC 165 L (228-460) ug/dL Ferritin 2362.6 H (10.0-291.0) ng/mL AST 12 L (14-36) U/L Lactate Dehydrogenase 695 H (313-618) U/L Total Protein 5.6 L (6.3-8.2) g/dL Total Protein (PEP) 5.2 L (6.2-8.2) g/dL Albumin 2.6 L (3.5-5.0) g/dL Vitamin B12 (200.0-944.0) pg/mL Stool Lactoferrin (NEGATIVE) Free [place] LC, Quant 4.70 H (0.33-1.94) mg/dL Free [place] LC, Quant 15.90 H (0.57-2.63) mg/dL Crossmatch 08/18/20 08/18/20 Range/Units 07:56 07:56 WBC 2.0 L (3.8-10.6) k/uL RBC 2.35 L (3.80-5.40) m/uL Hgb 7.1 L (11.4-16.0) gm/dL Hct 22.4 L (34.0-46.0) % RDW 17.6 H (11.5-15.5) % Plt Count 63 L D (150-450) k/uL Blast Cells % 12 H* % Neutrophils # (Manual) 1.20 L (1.3-7.7) k/uL Lymphocytes # (Manual) 0.38 L (1.0-4.8) k/uL Metamyelocytes # (Man) 0.02 H (0) k/uL Blast Cells # (Man) 0.24 H (0) k/uL Pathologist Review Sodium 136 L (137-145) mmol/L BUN 48 H (7-17) mg/dL Creatinine 1.16 H (0.52-1.04) mg/dL Glucose 105 H (74-99) mg/dL Uric Acid (3.7-7.4) mg/dL Iron (50-170) ug/dL TIBC (228-460) ug/dL Ferritin (10.0-291.0) ng/mL AST (14-36) U/L Lactate Dehydrogenase (313-618) U/L Total Protein (6.3-8.2) g/dL Total Protein (PEP) (6.2-8.2) g/dL Albumin (3.5-5.0) g/dL Vitamin B12 (200.0-944.0) pg/mL Stool Lactoferrin (NEGATIVE) Free [place] LC, Quant (0.33-1.94) mg/dL Free [place]ambda LC, Quant (0.57-2.63) mg/dL Crossmatch Assessment and Plan Plan: assessment and plan #1 severe symptomatic anemia, patient has had recent blood transfusions #2 sarcoidosis with respiratory insufficiency #3 chronic persistent atrial fibrillation Plan From cardiology's perspective, patient will not be reinitiated on anticoag ulation. Continue current medications. DNP note has been reviewed, I agree with a documented findings and plan of care. Patient was seen and examined.
--- NOTE | 2020-08-18 12:42 | P.PN ---
Subjective Progress Note Date: 08/18/20 Principal diagnosis: Diarrhea Seen and examined sitting up in the bedside chair. She states her diarrhea has improved, she had one episode of a loose but formed stool today. She denies any abdominal pain, nausea, or vomiting. She's been tolerating a full liquid diet. He continues her vancomycin. Hematology is on consult. Objective - Vital Signs Vital signs: Vital Signs Temp 98.0 F 08/18/20 08:00 Pulse 102 H 08/18/20 11:28 Resp 16 08/18/20 11:28 BP 93/55 08/18/20 11:28 Pulse Ox 94 L 08/18/20 11:28 Intake & Output 08/17/20 08/18/20 08/18/20 18:59 06:59 18:59 Intake Total 995 240 120 Balance 995 240 120 Weight 60.2 kg Intake: Oral 375 240 120 Blood Product 620 Rc As-1 Unit 310 [id number] Other: # Voids 1 1 1 # Bowel Movements 1 - Exam General appearance: The patient is alert, oriented, in no acute distress. HET: Head is normocephalic and atraumatic. Conjunctiva pink. Sclera anicteric. Neck: Supple without lymphadenopathy. Abdomen: Soft, nontender, nondistended with bowel sounds. No guarding or rigidity. Extremities: Normal skin color and turgor. No pedal edema Neurological: No focal deficits. Alert and oriented 3. - Labs CBC & Chem 7: 08/18/20 07:56 08/18/20 07:56 Labs: Abnormal Lab Results - Last 24 Hours (Table) 08/16/20 08/17/20 08/17/20 Range/Units 11:42 14:56 14:57 WBC (3.8-10.6) k/uL RBC (3.80-5.40) m/uL Hgb (11.4-16.0) gm/dL Hct (34.0-46.0) % RDW (11.5-15.5) % Plt Count (150-450) k/uL Blast Cells % % Neutrophils # (Manual) (1.3-7.7) k/uL Lymphocytes # (Manual) (1.0-4.8) k/uL Metamyelocytes # (Man) (0) k/uL Blast Cells # (Man) (0) k/uL Pathologist Review Sodium (137-145) mmol/L BUN (7-17) mg/dL Creatinine (0.52-1.04) mg/dL Glucose (74-99) mg/dL Uric Acid (3.7-7.4) mg/dL Iron (50-170) ug/dL TIBC (228-460) ug/dL Ferritin (10.0-291.0) ng/mL AST (14-36) U/L Lactate Dehydrogenase (313-618) U/L Total Protein (6.3-8.2) g/dL Total Protein (PEP) (6.2-8.2) g/dL Albumin (3.5-5.0) g/dL Vitamin B12 2769.0 H (200.0-944.0) pg/mL Stool Lactoferrin POSITIVE A (NEGATIVE) Free [place] LC, Quant (0.33-1.94) mg/dL Free Lambda LC, Quant (0.57-2.63) mg/dL Crossmatch See Detail 08/17/20 08/17/20 08/17/20 Range/Units 14:57 14:57 14:57 WBC (3.8-10.6) k/uL RBC (3.80-5.40) m/uL Hgb (11.4-16.0) gm/dL Hct (34.0-46.0) % RDW (11.5-15.5) % Plt Count (150-450) k/uL Blast Cells % % Neutrophils # (Manual) (1.3-7.7) k/uL Lymphocytes # (Manual) (1.0-4.8) k/uL Metamyelocytes # (Man) (0) k/uL Blast Cells # (Man) (0) k/uL Pathologist Review See comment A Sodium (137-145) mmol/L BUN (7-17) mg/dL Creatinine (0.52-1.04) mg/dL Glucose (74-99) mg/dL Uric Acid 9.9 H (3.7-7.4) mg/dL Iron 49 L (50-170) ug/dL TIBC 165 L (228-460) ug/dL Ferritin 2362.6 H (10.0-291.0) ng/mL AST 12 L (14-36) U/L Lactate Dehydrogenase 695 H (313-618) U/L Total Protein 5.6 L (6.3-8.2) g/dL Total Protein (PEP) 5.2 L (6.2-8.2) g/dL Albumin 2.6 L (3.5-5.0) g/dL Vitamin B12 (200.0-944.0) pg/mL Stool Lactoferrin (NEGATIVE) Free [place] LC, Quant 4.70 H (0.33-1.94) mg/dL Free [place]ambda LC, Quant 15.90 H (0.57-2.63) mg/dL Crossmatch 08/18/20 08/18/20 Range/Units 07:56 07:56 WBC 2.0 L (3.8-10.6) k/uL RBC 2.35 L (3.80-5.40) m/uL Hgb 7.1 L (11.4-16.0) gm/dL Hct 22.4 L (34.0-46.0) % RDW 17.6 H (11.5-15.5) % Plt Count 63 L D (150-450) k/uL Blast Cells % 12 H* % Neutrophils # (Manual) 1.20 L (1.3-7.7) k/uL Lymphocytes # (Manual) 0.38 L (1.0-4.8) k/uL Metamyelocytes # (Man) 0.02 H (0) k/uL Blast Cells # (Man) 0.24 H (0) k/uL Pathologist Review Sodium 136 L (137-145) mmol/L BUN 48 H (7-17) mg/dL Creatinine 1.16 H (0.52-1.04) mg/dL Glucose 105 H (74-99) mg/dL Uric Acid (3.7-7.4) mg/dL Iron (50-170) ug/dL TIBC (228-460) ug/dL Ferritin (10.0-291.0) ng/mL AST (14-36) U/L Lactate Dehydrogenase (313-618) U/L Total Protein (6.3-8.2) g/dL Total Protein (PEP) (6.2-8.2) g/dL Albumin (3.5-5.0) g/dL Vitamin B12 (200.0-944.0) pg/mL Stool Lactoferrin (NEGATIVE) Free [place] LC, Quant (0.33-1.94) mg/dL Free Lambda LC, Quant (0.57-2.63) mg/dL Crossmatch Assessment and Plan (1) Diarrhea Narrative/Plan: A 84-year-old female with multiple medical comorbidities who presented to the hospital due to weakness, anemia and shortness of breath. The patient has a known history of pancytopenia which is currently being evaluated by the hematology/oncology service. She denies any signs or symptoms of GI bleeding. She does report approximately 4 days of frequent loose bowel movements worsened with eating. The patient had a positive Clostridium difficile toxin through [facility], currently on vancomycin. Current Visit: Yes Status: Acute Code(s): R19.7 - DIARRHEA, UNSPECIFIED SNOMED Code(s): 99254209 (2) Weakness Current Visit: Yes Status: Acute Code(s): R53.1 - WEAKNESS SNOMED Code(s): 89745847 (3) Pancytopenia Current Visit: No Status: Acute Code(s): D61.818 - OTHER PANCYTOPENIA SNOMED Code(s): 975691685 Plan: Supportive care Advance to low fiber diet Vancomycin by mouth every 6 hours Cholestyromine for stool bulking Continue to monitor CBC, BMP, LFTs Hold off on antidiarrheals Diarrhea improved, we will be on stand by. Please do not hesitate to call us with any further questions or concerns. The impression and plan of care has been dictated as directed. I performed a history and examination of this patient, discussed the same with the dictator. I agree with the dictator's note ,documented as a scribe. Any additional findings or plans will be noted.
--- NOTE | 2020-08-18 14:07 | P.PN ---
Subjective Progress Note Date: 08/18/20 Principal diagnosis: Diarrhea, Colitis with neutropenia Diarrhea mild improvement on questra, would continnue on clears, NOT to advance until improved neutrophils. Objective - Vital Signs Vital signs: Vital Signs Temp 98.0 F 08/18/20 08:00 Pulse 102 H 08/18/20 11:28 Resp 16 08/18/20 11:28 BP 93/55 08/18/20 11:28 Pulse Ox 94 L 08/18/20 11:28 Intake & Output 08/17/20 08/18/20 08/18/20 18:59 06:59 18:59 Intake Total 995 240 120 Balance 995 240 120 Weight 60.2 kg Intake: Oral 375 240 120 Blood Product 620 Rc As-1 Unit 310 [id number] Other: # Voids 1 1 1 # Bowel Movements 1 1 - Exam - Constitutional General appearance: cooperative, no acute distress, thin - EENT Eyes: EOMI, poor dentition ENT: NA/AT - Neck Neck: normal ROM - Respiratory Respiratory: bilateral: diminished (Weak inspiration) - Cardiovascular Rhythm: regular Heart sounds: normal: S1, S2 - Gastrointestinal General gastrointestinal: mild disten, tenderness - Integumentary Integumentary: jaundiced - Neurologic [place] - Musculoskeletal Musculoskeletal: generalized weakness - Psychiatric Poor historian Psychiatric: A&O x's 3 - Labs CBC & Chem 7: 08/18/20 07:56 08/18/20 07:56 Labs: Abnormal Lab Results - Last 24 Hours (Table) 08/16/20 08/17/20 08/17/20 Range/Units 11:42 14:56 14:57 WBC (3.8-10.6) k/uL RBC (3.80-5.40) m/uL Hgb (11.4-16.0) gm/dL Hct (34.0-46.0) % RDW (11.5-15.5) % Plt Count (150-450) k/uL Blast Cells % % Neutrophils # (Manual) (1.3-7.7) k/uL Lymphocytes # (Manual) (1.0-4.8) k/uL Metamyelocytes # (Man) (0) k/uL Blast Cells # (Man) (0) k/uL Pathologist Review Sodium (137-145) mmol/L BUN (7-17) mg/dL Creatinine (0.52-1.04) mg/dL Glucose (74-99) mg/dL Uric Acid (3.7-7.4) mg/dL Iron (50-170) ug/dL TIBC (228-460) ug/dL Ferritin (10.0-291.0) ng/mL AST (14-36) U/L Lactate Dehydrogenase (313-618) U/L Total Protein (6.3-8.2) g/dL Total Protein (PEP) (6.2-8.2) g/dL Albumin (3.5-5.0) g/dL Vitamin B12 2769.0 H (200.0-944.0) pg/mL Stool Lactoferrin POSITIVE A (NEGATIVE) Free [place] LC, Quant (0.33-1.94) mg/dL Free [place] LC, Quant (0.57-2.63) mg/dL Crossmatch See Detail 08/17/20 08/17/20 08/17/20 Range/Units 14:57 14:57 14:57 WBC (3.8-10.6) k/uL RBC (3.80-5.40) m/uL Hgb (11.4-16.0) gm/dL Hct (34.0-46.0) % RDW (11.5-15.5) % Plt Count (150-450) k/uL Blast Cells % % Neutrophils # (Manual) (1.3-7.7) k/uL Lymphocytes # (Manual) (1.0-4.8) k/uL Metamyelocytes # (Man) (0) k/uL Blast Cells # (Man) (0) k/uL Pathologist Review See comment A Sodium (137-145) mmol/L BUN (7-17) mg/dL Creatinine (0.52-1.04) mg/dL Glucose (74-99) mg/dL Uric Acid 9.9 H (3.7-7.4) mg/dL Iron 49 L (50-170) ug/dL TIBC 165 L (228-460) ug/dL Ferritin 2362.6 H (10.0-291.0) ng/mL AST 12 L (14-36) U/L Lactate Dehydrogenase 695 H (313-618) U/L Total Protein 5.6 L (6.3-8.2) g/dL Total Protein (PEP) 5.2 L (6.2-8.2) g/dL Albumin 2.6 L (3.5-5.0) g/dL Vitamin B12 (200.0-944.0) pg/mL Stool Lactoferrin (NEGATIVE) Free [place] LC, Quant 4.70 H (0.33-1.94) mg/dL Free [place] LC, Quant 15.90 H (0.57-2.63) mg/dL Crossmatch 08/18/20 08/18/20 Range/Units 07:56 07:56 WBC 2.0 L (3.8-10.6) k/uL RBC 2.35 L (3.80-5.40) m/uL Hgb 7.1 L (11.4-16.0) gm/dL Hct 22.4 L (34.0-46.0) % RDW 17.6 H (11.5-15.5) % Plt Count 63 L D (150-450) k/uL Blast Cells % 12 H* % Neutrophils # (Manual) 1.20 L (1.3-7.7) k/uL Lymphocytes # (Manual) 0.38 L (1.0-4.8) k/uL Metamyelocytes # (Man) 0.02 H (0) k/uL Blast Cells # (Man) 0.24 H (0) k/uL Pathologist Review Sodium 136 L (137-145) mmol/L BUN 48 H (7-17) mg/dL Creatinine 1.16 H (0.52-1.04) mg/dL Glucose 105 H (74-99) mg/dL Uric Acid (3.7-7.4) mg/dL Iron (50-170) ug/dL TIBC (228-460) ug/dL Ferritin (10.0-291.0) ng/mL AST (14-36) U/L Lactate Dehydrogenase (313-618) U/L Total Protein (6.3-8.2) g/dL Total Protein (PEP) (6.2-8.2) g/dL Albumin (3.5-5.0) g/dL Vitamin B12 (200.0-944.0) pg/mL Stool Lactoferrin (NEGATIVE) Free [place] LC, Quant (0.33-1.94) mg/dL Free [place]ambda LC, Quant (0.57-2.63) mg/dL Crossmatch Assessment and Plan Plan: Diarrhea/Colitis with neutropenia: - Improving on questran and bowel rest - Abdominal xray ordered - Please do not advance diet at this time, clear liquids for now ok - CBC in am Pancytopenia: - Improved after transfusion, mild increase in neuts 1.2 - Transfuse Irradiated, LR PRBC today, and when Hemoglobin less than 7 - Recheck Myeloma panel and anemia panel 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 The patient had 2 M protein's with total quantitation in the low 2 g/dL range. Although was on observation as her counts remained within safe ranges. - This admission appears to be noted change in her labs from her baseline. This could indicate progression of one or both of her underlying bone marrow con ditions. Transient marrow compromise from her acute illness also remains in differential. Labs for deficiency states are negative. Persistent Atrial fibrillation with RVR - Symptomatic - Cardiology following - Unable to anticoagulate at this time platelet count less than 50K Acute Hypoxic Respiratory failure: - Continues to be significantly SOB - Pulm following - CHF (Diastolic) COPD exacerbation - A-fib with RVR - Unable to be anticoagulated with platelet count less than 50K - Symptomatic Anemia Status Post 08/05/20: dexamethasone 40mg PO x4 days at last discharge and was advised to see primary oncologist [place] after last hospitalization Follow-up with normal outside manager [employer] within a week Recommendations: - Continue on clear liquids until diarrhea resolved and neutrophils improved. - CBC, CMP daily - MOnitor for s/s bleeding
[2020-08-18 14:36] LABS: Albumin 2.32 g/dL (3.80-4.90); Gamma Globulin 1.03 g/dL (0.70-1.50)
--- NOTE | 2020-08-18 14:52 | XR ---
EXAMINATION TYPE: XR abdomen 2V DATE OF EXAM: 08/18/2020 COMPARISON: NONE HISTORY: Pain TECHNIQUE: One view abdominal series FINDINGS: Bilateral airspace disease and pleural effusions with cardiomegaly and COPD. Curvature of the spine w ith degenerative changes. Bowel gas pattern nonspecific. Surgical clips in the abdomen. Arthropathy o f the hips. IMPRESSION: 1. Nonspecific abdomen 2. COPD with bilateral infiltrate and pleural effusion.
[2020-08-18] MEDS: ALBUTEROL NEBULIZED 2.5 MG/3 ML INHALATION PRN (20:18)
--- NOTE | 2020-08-19 00:01 | P.PN ---
Subjective Progress Note Date: 08/18/20 Principal diagnosis: Symptomatic anemia Chronic persistent atrial fibrillation Patient is a 84-year-old female with a known history of mitral and aortic regurgitation, sarcoidosis, hypothyroidism and chronic CHF with diastolic dysfunction who was recently admitted to the hospital with atrial fibrillation with RVR and subsequently found to be profoundly anemic. Patient did receive blood transfusion and was discharged home. Patient initially presented to [facility] with complaints of shortness of breath and generalized weakness and poor oral intake. Patient was found to have hemoglobin level of 6.5 and underwent 1 unit of PRBC on Saturday. Again this morning patient was not feeling good and and her daughter took her to ER at [facility] where she has been found to have A. fib with RVR and was transferred to [facility] for evaluation. Patient was seen by hematology during recent admission. 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 dex 40mg po daily x4 was given. Echocardiogram obtained reveals preserved LV systolic function with ejection fraction 60-65%, mild aortic regurgitation, mild aortic stenosis with a mean gradient of 9 mmHg, mild MR with peak gradient across the mitral valve with 3 mmHg, mild TR and mild pulmonary hypertension with an RVSP of 41 mmHg. 08/16/2020 Patient is currently resting that. Still feeling short of breath and also having diarrhea. C. diff was sent. Hemoglobin improved to 7.8 today. Status post 1 unit of PRBC transfusion. Cardiology is following. No anticoagulation due to low platelets. 08/17/2020 Patient says that she is feeling very weak today. Hemoglobin dropped down to 6.3 and will be transfused with 1 unit of PRBC. Patient will be continued on Lasix due to pulmonary vascular congestion and continue with metoprolol. Heart rate is still elevated at 100. Audiology is on board. Not accomplished due to low platelet count. Due to pancytopenia and history of abnormal bone marrow and suspected myelodysplastic, oncology was consulted. C. diff was positive at [facility]. Started on vancomycin by mouth. 08/18/2020 Patient is currently resting in the bed comfortably. Patient states that she feels better today. Hemoglobin is 7.1. Peripheral smear showed 12% blasts. 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 Oncology is following. Patient is tolerating clear liquids. Diarrhea improved. Patient is also being continued on vancomycin for C. difficile colitis. GI is on board. Patient to be transfused with irradiated RBCs and required. Current medications reviewed. Objective - Vital Signs Vital signs: Vital Signs Temp 98.0 F 08/18/20 15:52 Pulse 128 H 08/18/20 20:18 Resp 18 08/18/20 15:52 BP 107/56 08/18/20 15:52 Pulse Ox 98 08/18/20 20:18 Intake & Output 08/18/20 08/18/20 08/19/20 06:59 18:59 06:59 Intake Total 240 330 Balance 240 330 Weight 60.2 kg Intake: Oral 240 330 Other: # Voids 1 1 # Bowel Movements 1 1 - Exam PHYSICAL EXAMINATION: Patient is lying in the bed comfortably, no acute distress, awake alert and oriented. Lethargic.. HEENT: Normocephalic. Neck is supple. Pupils reactive. Nostrils clear. Oral cavity is moist. Ears reveal no drainage. Neck reveals no JVD, carotid bruits, or thyromegaly. CHEST EXAMINATION: Trachea is central. Symmetrical expansion. Bibasilar diminished air entry and crackles positive. CARDIAC: Normal S1, S2 with no gallops. No murmurs ABDOMEN: Soft. Bowel sounds normal. No organomegaly. No abdominal bruits. Extremities: reveal no edema. No clubbing or cyanosis Neurologically awake, alert, oriented x3 with well-coordinated movements. No focal deficits noted Skin: No rash or skin lesions. Psychiatric: Coperative. Nonsuicidal Musculoskeletal: No joint swelling or deformity. Normal range of motion. - Labs CBC & Chem 7: 08/18/20 07:56 08/18/20 07:56 Labs: Abnormal Lab Results - Last 24 Hours (Table) 08/17/20 08/17/20 08/17/20 Range/Units 14:57 14:57 14:57 WBC (3.8-10.6) k/uL RBC (3.80-5.40) m/uL Hgb (11.4-16.0) gm/dL Hct (34.0-46.0) % RDW (11.5-15.5) % Plt Count (150-450) k/uL Blast Cells % % Neutrophils # (Manual) (1.3-7.7) k/uL Lymphocytes # (Manual) (1.0-4.8) k/uL Metamyelocytes # (Man) (0) k/uL Blast Cells # (Man) (0) k/uL Pathologist Review See comment A Sodium (137-145) mmol/L BUN (7-17) mg/dL Creatinine (0.52-1.04) mg/dL Glucose (74-99) mg/dL Iron 49 L (50-170) ug/dL TIBC 165 L (228-460) ug/dL Ferritin 2362.6 H (10.0-291.0) ng/mL Total Protein (PEP) (6.2-8.2) g/dL Albumin (PEP) (3.80-4.90) g/dL Qwsnw-6-Fdmwkgzry (0.10-0.40) g/dL Beta Globulins (0.60-1.30) g/dL Vitamin B12 2769.0 H (200.0-944.0) pg/mL Free Desha LC, Quant (0.33-1.94) mg/dL Free Lambda LC, Quant (0.57-2.63) mg/dL 08/17/20 08/18/20 08/18/20 Range/Units 14:57 07:56 07:56 WBC 2.0 L (3.8-10.6) k/uL RBC 2.35 L (3.80-5.40) m/uL Hgb 7.1 L (11.4-16.0) gm/dL Hct 22.4 L (34.0-46.0) % RDW 17.6 H (11.5-15.5) % Plt Count 63 L D (150-450) k/uL Blast Cells % 12 H* % Neutrophils # (Manual) 1.20 L (1.3-7.7) k/uL Lymphocytes # (Manual) 0.38 L (1.0-4.8) k/uL Metamyelocytes # (Man) 0.02 H (0) k/uL Blast Cells # (Man) 0.24 H (0) k/uL Pathologist Review Sodium 136 L (137-145) mmol/L BUN 48 H (7-17) mg/dL Creatinine 1.16 H (0.52-1.04) mg/dL Glucose 105 H (74-99) mg/dL Iron (50-170) ug/dL TIBC (228-460) ug/dL Ferritin (10.0-291.0) ng/mL Total Protein (PEP) 5.2 L (6.2-8.2) g/dL Albumin (PEP) 2.32 L (3.80-4.90) g/dL Wmsxb-3-Bplzukcod 0.57 H (0.10-0.40) g/dL Beta Globulins 0.51 L (0.60-1.30) g/dL Vitamin B12 (200.0-944.0) pg/mL Free Desha LC, Quant 4.70 H (0.33-1.94) mg/dL Free Lambda LC, Quant 15.90 H (0.57-2.63) mg/dL Assessment and Plan Assessment: Symptomatic anemia .s/p transfusion hemoglobin level improving. Acute Diarrhea. Positive Cdiff at [facility]. 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 History of inactive quiescent sarcoidosis Hypothyroidism Valvular heart disease Pancytopenia COPD not in exacerbation DVT Proph. SCDs Plan: Patient will be continued on telemetry monitoring. Patient was started on vancomycin by mouth started back on loppressor.Eliquis is on hold.. Started on Heparin Drip. Anticoagulation has been discontinued. Cardiology is following Continue with Lopressor and Lasix and other home medications. Monitor H&H and transfuse if hemoglobin is less than 7. Time with Patient: Greater than 30
[2020-08-19] MEDS: LEVOTHYROXINE 112 MCG TAB PO SCH (06:14)
[2020-08-19] MEDS: VANCOMYCIN 125 MG CAPSULE PO SCH ×3 (06:14→16:41)
[2020-08-19] MEDS: FUROSEMIDE 40 MG TAB PO SCH ×2 (08:26→16:41)
[2020-08-19] MEDS: METOPROLOL TARTRATE 25 MG TAB PO SCH ×3 (08:26→21:07)
[2020-08-19] MEDS: FERROUS SULFATE 325 MG TAB PO SCH (08:26)
[2020-08-19] MEDS: VIT A,C & E-LUTEIN-MINERALS 1 EACH TAB PO SCH (08:26)
[2020-08-19] MEDS: PANTOPRAZOLE 40 MG TABLET PO SCH (08:26)
[2020-08-19] MEDS: CHOLECALCIFEROL 1,000 UNIT TAB PO SCH (08:26)
[2020-08-19] MEDS: CHOLESTYRAMINE (WITH SUGAR) 4 GM PACKET PO SCH ×2 (08:27→16:41)
[2020-08-19] MEDS: DORZOLAMIDE HCL 2% DROPS 10 ML BTL BOTH EYES SCH ×2 (08:27→21:08)
[2020-08-19 09:03] LABS: Calcium 9.1 mg/dL (8.4-10.2); Potassium 4.6 mmol/L (3.5-5.1)
[2020-08-19 09:52] LABS: Anisocytosis Slight; HCT 24.7 % (34.0-46.0); HGB 7.9 gm/dL (11.4-16.0); Hypochromasia Slight; MCH 31.2 pg (25.0-35.0); MCHC 31.9 g/dL (31.0-37.0); Macrocytosis Slight; Mean Platelet Volume 14.5; Platelet Count 92 k/uL (150-450); RBC 2.52 m/uL (3.80-5.40); RDW 17.6 % (11.5-15.5); WBC 2.8 k/uL (3.8-10.6)
[2020-08-19] MEDS: BUDESONIDE 0.5 MG/2 ML NEBU INHALATION SCH ×2 (11:55→20:35)
[2020-08-19] MEDS: ALBUTEROL NEBULIZED 2.5 MG/3 ML INHALATION PRN ×2 (11:55→20:35)
[2020-08-19 13:18] LABS: Band Neutrophils % 3 %; Basophils # (M) 0.03 k/uL (0-0.2); Eosinophils # (M) 0.11 k/uL (0-0.7); Lymphocytes # (M) 0.78 k/uL (1.0-4.8); Monocytes # (M) 0.17 k/uL (0-1.0); Myelocytes # (M) 0.08 k/uL (0); Myelocytes % 3 %; Neutrophils % (M) 50 %
[2020-08-19 13:19] LABS: Blast Cells # (M) 0.22 k/uL (0); Nucleated Red Blood Cells 1 /100 WBC (0-0); Total Cells Counted 200
[2020-08-19 13:20] LABS: Large Platelets Present
--- NOTE | 2020-08-19 14:29 | P.PN ---
Subjective Progress Note Date: 08/19/20 HISTORY OF PRESENT ILLNESS: Patient examined this morning at the bedside. She denies chest pain or pressure. Denies shortness of breath. Heart rate is in the low 100s today. She is currently receiving 25 mg of metoprolol twice a day. Intake regulation is on hold secondary to anemia. Patient states her diarrhea has improved. PHYSICAL EXAM: VITAL SIGNS: Reviewed. GENERAL: Well-developed in no acute distress. NECK: Supple. No JVD or thyromegaly LUNGS: Respirations even and unlabored. Lungs essentially clear to auscultation bilaterally. HEART: Irregular rate and rhythm. S1 and S2 heard. EXTREMITIES: Normal range of motion. No clubbing or cyanosis. Peripheral pulses intact. No lower extremity edema ASSESSMENT: Chronic persistent atrial fibrillation Symptomatic anemia, status post transfusion MDS and borderline Myeloma COPD PLAN: Increase metoprolol to 25 mg 3 times a day Continue to monitor heart rate No anticoagulation secondary to anemia We will sign off. Please reconsult if needed. Nurse practitioner note has been reviewed by physician. Signing provider agrees with the documented findings, assessment, and plan of care. Objective - Vital Signs Vital signs: Vital Signs Temp 97.6 F 08/19/20 03:56 Pulse 117 H 08/19/20 12:10 Resp 16 08/19/20 12:00 BP 102/57 08/19/20 12:00 Pulse Ox 97 08/19/20 12:00 Intake & Output 08/18/20 08/19/20 08/19/20 18:59 06:59 18:59 Intake Total 330 240 420 Output Total 0 0 Balance 330 240 420 Weight 61.5 kg Intake: Oral 330 240 420 Output: Urine 0 0 Other: Voiding Method Bedside Commode # Voids 1 1 1 # Bowel Movements 1 1 - Labs CBC & Chem 7: 08/19/20 08:08 08/19/20 08:08 Labs: Abnormal Lab Results - Last 24 Hours (Table) 08/17/20 08/19/20 08/19/20 Range/Units 14:57 08:08 08:08 WBC 2.8 L (3.8-10.6) k/uL RBC 2.52 L (3.80-5.40) m/uL Hgb 7.9 L (11.4-16.0) gm/dL Hct 24.7 L (34.0-46.0) % RDW 17.6 H (11.5-15.5) % Plt Count 92 L (150-450) k/uL Blast Cells % 8 H* % Lymphocytes # (Manual) 0.78 L (1.0-4.8) k/uL Myelocytes # (Manual) 0.08 H (0) k/uL Blast Cells # (Man) 0.22 H (0) k/uL Nucleated RBCs 1 H (0-0) /100 WBC BUN 44 H (7-17) mg/dL Creatinine 1.20 H (0.52-1.04) mg/dL Glucose 138 H (74-99) mg/dL Albumin (PEP) 2.32 L (3.80-4.90) g/dL Quozl-8-Kwidtcynj 0.57 H (0.10-0.40) g/dL Beta Globulins 0.51 L (0.60-1.30) g/dL
--- NOTE | 2020-08-19 15:10 | P.PN ---
Subjective Symptomatic anemia Chronic persistent atrial fibrillation Patient is a 84-year-old female with a known history of mitral and aortic regurgitation, sarcoidosis, hypothyroidism and chronic CHF with diastolic dysfunction who was recently admitted to the hospital with atrial fibrillation with RVR and subsequently found to be profoundly anemic. Patient did receive blood transfusion and was discharged home. Patient initially presented to [facility] with complaints of shortness of breath and generalized weakness and poor oral intake. Patient was found to have hemoglobin level of 6.5 and underwent 1 unit of PRBC on Saturday. Again this morning patient was not feeling good and and her daughter took her to ER at [facility] where she has been found to have A. fib with RVR and was transferred to [facility] for evaluation. Patient was seen by hematology during recent admission. 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 dex 40mg po daily x4 was given. Echocardiogram obtained reveals preserved LV systolic function with ejection fraction 60-65%, mild aortic regurgitation, mild aortic stenosis with a mean gradient of 9 mmHg, mild MR with peak gradient across the mitral valve with 3 mmHg, mild TR and mild pulmonary hypertension with an RVSP of 41 mmHg. 08/16/2020 Patient is currently resting that. Still feeling short of breath and also having diarrhea. C. diff was sent. Hemoglobin improved to 7.8 today. Status post 1 unit of PRBC transfusion. Cardiology is following. No anticoagulation due to low platelets. 08/17/2020 Patient says that she is feeling very weak today. Hemoglobin dropped down to 6.3 and will be transfused with 1 unit of PRBC. Patient will be continued on Lasix due to pulmonary vascular congestion and continue with metoprolol. Heart rate is still elevated at 100. Audiology is on board. Not accomplished due to low platelet count. Due to pancytopenia and history of abnormal bone marrow and suspected myelodysplastic, oncology was consulted. C. diff was positive at [facility]. Started on vancomycin by mouth. 08/18/2020 Patient is currently resting in the bed comfortably. Patient states that she feels better today. Hemoglobin is 7.1. Peripheral smear showed 12% blasts. 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 Oncology is following. Patient is tolerating clear liquids. Diarrhea improved. Patient is also being continued on vancomycin for C. difficile colitis. GI is on board. Patient to be transfused with irradiated RBCs and required. 08/19/2020 Patient heart rate remains anywhere between 110-120 at rest metoprolol dose was increased.patient's creatinine is 1.2 and her baseline is around1. Constitutional: Denied any fatigue denied any fever. Cardio vascular: denied any chest pain, palpitations Gastrointestinal denied any nausea vomiting Pulmonary: Denied any shortness of breath cough Neurologic denied any new focal deficits All inpatient medications were reviewed and appropriate changes in these medications as dictated in the interval history and assessment and plan. Objective - Vital Signs Vital signs: Vital Signs Temp 97.6 F 08/19/20 03:56 Pulse 117 H 08/19/20 12:10 Resp 16 08/19/20 12:00 BP 102/57 08/19/20 12:00 Pulse Ox 97 08/19/20 12:00 Intake & Output 08/18/20 08/19/20 08/19/20 18:59 06:59 18:59 Intake Total 330 240 420 Output Total 0 0 Balance 330 240 420 Weight 61.5 kg Intake: Oral 330 240 420 Output: Urine 0 0 Other: Voiding Method Bedside Commode # Voids 1 1 1 # Bowel Movements 1 1 - Exam PHYSICAL EXAMINATION: GENERAL: The patient is alert and oriented x3, not in any acute distress. Well developed, well nourished. HEENT: Pupils are round and equally reacting to light. EOMI. No scleral icterus. No conjunctival pallor. Normocephalic, atraumatic. No pharyngeal erythema. No th yromegaly. CARDIOVASCULAR: S1 and S2 present. No murmurs, rubs, or gallops. irregularly irregular rapid, tachycardic PULMONARY: Chest is clear to auscultation, no wheezing or crackles. ABDOMEN: Soft, nontender, nondistended, normoactive bowel sounds. No palpable organomegaly. MUSCULOSKELETAL: No joint swelling or deformity. EXTREMITIES: No cyanosis, clubbing, or pedal edema. NEUROLOGICAL: Gross neurological examination did not reveal any focal deficits. SKIN: No rashes. - Labs CBC & Chem 7: 08/19/20 08:08 08/19/20 08:08 Labs: Abnormal Lab Results - Last 24 Hours (Table) 08/19/20 08/19/20 Range/Units 08:08 08:08 WBC 2.8 L (3.8-10.6) k/uL RBC 2.52 L (3.80-5.40) m/uL Hgb 7.9 L (11.4-16.0) gm/dL Hct 24.7 L (34.0-46.0) % RDW 17.6 H (11.5-15.5) % Plt Count 92 L (150-450) k/uL Blast Cells % 8 H* % Lymphocytes # (Manual) 0.78 L (1.0-4.8) k/uL Myelocytes # (Manual) 0.08 H (0) k/uL Blast Cells # (Man) 0.22 H (0) k/uL Nucleated RBCs 1 H (0-0) /100 WBC BUN 44 H (7-17) mg/dL Creatinine 1.20 H (0.52-1.04) mg/dL Glucose 138 H (74-99) mg/dL Assessment and Plan Plan: Symptomatic anemia .s/p transfusion hemoglobinimproved. Acute Diarrhea. Positive Cdiff at [facility].she is presently on oral vancomycin patient doesn't have any other significant episodes of diarrhea today patient actually remained on IV Lasix for CHF and diastolic dysfunction. 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 patient has aberrantly rate continues to be on Eliquis anticoagulation dose of metoprolol was increased History of inactive quiescent sarcoidosis Hypothyroidism Valvular heart disease Pancytopenia COPD not in exacerbation -mild acute renal failure prerenal azotemia secondary to congestive heart failure diastolic dysfunction DVT Proph. patient is on Eliquis
--- NOTE | 2020-08-19 16:31 | P.PN ---
Subjective Progress Note Date: 08/19/20 Principal diagnosis: Diarrhea, Colitis with neutropenia Diarrhea is improved. Also her Myeloma FLC have improved after bolus dex. Objective - Vital Signs Vital signs: Vital Signs Temp 97.6 F 08/19/20 03:56 Pulse 117 H 08/19/20 12:10 Resp 16 08/19/20 12:00 BP 102/57 08/19/20 12:00 Pulse Ox 97 08/19/20 12:00 Intake & Output 08/18/20 08/19/20 08/19/20 18:59 06:59 18:59 Intake Total 330 240 420 Output Total 0 0 Balance 330 240 420 Weight 61.5 kg Intake: Oral 330 240 420 Output: Urine 0 0 Other: Voiding Method Bedside Commode # Voids 1 1 1 # Bowel Movements 1 1 - Exam - Constitutional General appearance: cooperative, no acute distress, thin - EENT Eyes: EOMI, poor dentition ENT: NA/AT - Neck Neck: normal ROM - Respiratory Respiratory: bilateral: diminished (Weak inspiration) - Cardiovascular Rhythm: regular Heart sounds: normal: S1, S2 - Gastrointestinal General gastrointestinal: mild disten, tenderness - Integumentary Integumentary: jaundiced - Neurologic ONDINA - Musculoskeletal Musculoskeletal: generalized weakness - Psychiatric Poor historian Psychiatric: A&O x's 3 - Labs CBC & Chem 7: 08/19/20 08:08 08/19/20 08:08 Labs: Abnormal Lab Results - Last 24 Hours (Table) 08/19/20 08/19/20 Range/Units 08:08 08:08 WBC 2.8 L (3.8-10.6) k/uL RBC 2.52 L (3.80-5.40) m/uL Hgb 7.9 L (11.4-16.0) gm/dL Hct 24.7 L (34.0-46.0) % RDW 17.6 H (11.5-15.5) % Plt Count 92 L (150-450) k/uL Blast Cells % 8 H* % Lymphocytes # (Manual) 0.78 L (1.0-4.8) k/uL Myelocytes # (Manual) 0.08 H (0) k/uL Blast Cells # (Man) 0.22 H (0) k/uL Nucleated RBCs 1 H (0-0) /100 WBC BUN 44 H (7-17) mg/dL Creatinine 1.20 H (0.52-1.04) mg/dL Glucose 138 H (74-99) mg/dL Assessment and Plan Plan: Diarrhea/Colitis with neutropenia: - Improving on questran and bowel rest - tolerating PO intake for the most part - CBC in am Pancytopenia: - Improving - Transfuse Irradiated, LR PRBC today, and when Hemoglobin less than 7 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 The patient had 2 M protein's with total quantitation in the low 2 g/dL range. Although was on observation as her counts remained within safe ranges. - This admission appears to be noted change in her labs from her baseline. This could indicate progression of one or both of her underlying bone marrow conditions. Transient marrow compromise from her acute illness also remains in differential. Labs for deficiency states are negative. 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
[2020-08-20] MEDS: VANCOMYCIN 125 MG CAPSULE PO SCH ×5 (00:36→22:59)
[2020-08-20] MEDS: LEVOTHYROXINE 112 MCG TAB PO SCH (06:01)
[2020-08-20] MEDS: METOPROLOL TARTRATE 25 MG TAB PO SCH ×3 (08:41→19:55)
[2020-08-20] MEDS: FUROSEMIDE 40 MG TAB PO SCH ×2 (08:41→15:38)
[2020-08-20] MEDS: CHOLECALCIFEROL 1,000 UNIT TAB PO SCH (08:41)
[2020-08-20] MEDS: PANTOPRAZOLE 40 MG TABLET PO SCH (08:41)
[2020-08-20] MEDS: FERROUS SULFATE 325 MG TAB PO SCH (08:41)
[2020-08-20] MEDS: VIT A,C & E-LUTEIN-MINERALS 1 EACH TAB PO SCH (08:42)
[2020-08-20] MEDS: BUDESONIDE 0.5 MG/2 ML NEBU INHALATION SCH ×2 (09:25→20:24)
[2020-08-20] MEDS: CHOLESTYRAMINE (WITH SUGAR) 4 GM PACKET PO SCH ×2 (12:28→18:12)
[2020-08-20] MEDS: DORZOLAMIDE HCL 2% DROPS 10 ML BTL BOTH EYES SCH ×2 (12:28→19:55)
--- NOTE | 2020-08-20 17:25 | XR ---
EXAMINATION TYPE: XR chest 1V DATE OF EXAM: 08/20/2020 COMPARISON: 08/16/2020 HISTORY: Chest pain short of breath TECHNIQUE: FINDINGS: Heart appears slightly enlarged. There is pulmonary vascular congestion and pulmonary inter stitial edema. There is blunting of the costophrenic angles. There are chest leads. IMPRESSION: Congestive heart failure with pleural effusions. No significant change compared to recent exam.
--- NOTE | 2020-08-20 17:30 | P.PN ---
Subjective Symptomatic anemia Chronic persistent atrial fibrillation Patient is a 84-year-old female with a known history of mitral and aortic regurgitation, sarcoidosis, hypothyroidism and chronic CHF with diastolic dysfunction who was recently admitted to the hospital with atrial fibrillation with RVR and subsequently found to be profoundly anemic. Patient did receive blood transfusion and was discharged home. Patient initially presented to [facility] with complaints of shortness of breath and generalized weakness and poor oral intake. Patient was found to have hemoglobin level of 6.5 and underwent 1 unit of PRBC on Saturday. Again this morning patient was not feeling good and and her daughter took her to ER at [facility] where she has been found to have A. fib with RVR and was transferred to [facility] for evaluation. Patient was seen by hematology during recent admission. 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 dex 40mg po daily x4 was given. Echocardiogram obtained reveals preserved LV systolic function with ejection fraction 60-65%, mild aortic regurgitation, mild aortic stenosis with a mean gradient of 9 mmHg, mild MR with peak gradient across the mitral valve with 3 mmHg, mild TR and mild pulmonary hypertension with an RVSP of 41 mmHg. 08/16/2020 Patient is currently resting that. Still feeling short of breath and also having diarrhea. C. diff was sent. Hemoglobin improved to 7.8 today. Status post 1 unit of PRBC transfusion. Cardiology is following. No anticoagulation due to low platelets. 08/17/2020 Patient says that she is feeling very weak today. Hemoglobin dropped down to 6.3 and will be transfused with 1 unit of PRBC. Patient will be continued on Lasix due to pulmonary vascular congestion and continue with metoprolol. Heart rate is still elevated at 100. Audiology is on board. Not accomplished due to low platelet count. Due to pancytopenia and history of abnormal bone marrow and suspected myelodysplastic, oncology was consulted. C. diff was positive at [facility]. Started on vancomycin by mouth. 08/18/2020 Patient is currently resting in the bed comfortably. Patient states that she feels better today. Hemoglobin is 7.1. Peripheral smear showed 12% blasts. 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 Oncology is following. Patient is tolerating clear liquids. Diarrhea improved. Patient is also being continued on vancomycin for C. difficile colitis. GI is on board. Patient to be transfused with irradiated RBCs and required. 08/19/2020 Patient heart rate remains anywhere between 110-120 at rest metoprolol dose was increased.patient's creatinine is 1.2 and her baseline is around1. 08/20/2020 Patient is still requiring 3 L of oxygen usually doesn't use any oxygen at home because of which are pending x-ray which is still showing pulmonary edema patient Lasix will be changed to IV Lasix and patient heart rate is anywhere between 110-120. Although patient clinically doing well and no diarrhea. Constitutional: Denied any fatigue denied any fever. Cardio vascular: denied any chest pain, palpitations Gastrointestinal denied any nausea vomiting Pulmonary: Denied any shortness of breath cough Neurologic denied any new focal deficits All inpatient medications were reviewed and appropriate changes in these medications as dictated in the interval history and assessment and plan. Objective - Vital Signs Vital signs: Vital Signs Temp 98.6 F 08/20/20 15:00 Pulse 107 H 08/20/20 16:00 Resp 18 08/20/20 16:00 BP 104/68 08/20/20 15:00 Pulse Ox 94 L 08/20/20 15:00 Intake & Output 08/19/20 08/20/20 08/20/20 18:59 06:59 18:59 Intake Total 657 200 Output Total 0 0 Balance 657 200 0 Weight 60.5 kg Intake: Oral 657 Tube Feeding 200 Output: Urine 0 0 Other: Voiding Method Bedside Commode Bedside Commode Bedside Commode # Voids 1 1 1 # Bowel Movements 1 1 - Exam PHYSICAL EXAMINATION: GENERAL: The patient is alert and oriented x3, not in any acute distress. Well developed, well nourished. HEENT: Pupils are round and equally reacting to light. EOMI. No scleral icterus. No conjunctival pallor. Normocephalic, atraumatic. No pharyngeal erythema. No thyromegaly. CARDIOVASCULAR: S1 and S2 present. No murmurs, rubs, or gallops. irregularly irregular rapid, tachycardic PULMONARY: Chest is clear to auscultation, no wheezing or crackles. ABDOMEN: Soft, nontender, nondistended, normoactive bowel sounds. No palpable organomegaly. MUSCULOSKELETAL: No joint swelling or deformity. EXTREMITIES: No cyanosis, clubbing, or pedal edema. NEUROLOGICAL: Gross neurological examination did not reveal any focal deficits. SKIN: No rashes. - Labs CBC & Chem 7: 08/19/20 08:08 08/19/20 08:08 Labs: Microbiology - Last 24 Hours (Table) 08/16/20 11:42 Stool Culture - Final Stool Assessment and Plan Plan: Symptomatic anemia .s/p transfusion hemoglobinimproved. Acute Diarrhea. Positive Cdiff at [facility].she is presently on oral vancomycin patient doesn't have any other significant episodes of diarrhea today patient actually remained on IV Lasix for CHF and diastolic dysfunction. 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 Persistent atrial fibrillation. patient has aberrantly rate continues to be on Eliquis anticoagulation dose of metoprolol was increasedtoday. History of inactive quiescent sarcoidosis Hypothyroidism Valvular heart disease Pancytopenia COPD not in exacerbation -mild acute renal failure prerenal azotemia secondary to congestive heart fa ilure diastolic dysfunction DVT Proph. patient is on Eliquis
[2020-08-20] MEDS: FUROSEMIDE 10 MG/ML 4 ML VIAL IV SCH ×2 (19:58→22:59)
[2020-08-21] MEDS: VANCOMYCIN 125 MG CAPSULE PO SCH ×4 (06:04→23:33)
[2020-08-21] MEDS: LEVOTHYROXINE 112 MCG TAB PO SCH (06:04)
[2020-08-21] MEDS: CHOLECALCIFEROL 1,000 UNIT TAB PO SCH ×2 (08:21→08:22)
[2020-08-21] MEDS: METOPROLOL TARTRATE 25 MG TAB PO SCH ×3 (08:22→20:27)
[2020-08-21] MEDS: FERROUS SULFATE 325 MG TAB PO SCH (08:22)
[2020-08-21] MEDS: FUROSEMIDE 10 MG/ML 4 ML VIAL IV SCH ×2 (08:22→20:25)
[2020-08-21] MEDS: PANTOPRAZOLE 40 MG TABLET PO SCH (08:22)
[2020-08-21] MEDS: DORZOLAMIDE HCL 2% DROPS 10 ML BTL BOTH EYES SCH ×2 (08:23→20:28)
[2020-08-21] MEDS: CHOLESTYRAMINE (WITH SUGAR) 4 GM PACKET PO SCH ×2 (08:23→16:51)
[2020-08-21] MEDS: VIT A,C & E-LUTEIN-MINERALS 1 EACH TAB PO SCH (08:23)
[2020-08-21] MEDS: ALBUTEROL NEBULIZED 2.5 MG/3 ML INHALATION PRN (08:47)
[2020-08-21] MEDS: BUDESONIDE 0.5 MG/2 ML NEBU INHALATION SCH ×2 (08:47→20:27)
[2020-08-21 09:16] LABS: African American GFR (CKD) 54.1 (60.0-200.0); Anion Gap 8.1 mmol/L (4.00-12.00); BUN/Creat Ratio 34.55 Ratio (12.00-20.00); Calcium 8.6 mg/dL (8.7-10.3); Carbon Dioxide 27.9 mmol/L (21.6-31.8); Non-African American GFR(CKD) 46.7 (60.0-200.0); Potassium 3.5 mmol/L (3.5-5.5)
[2020-08-21 12:29] VITALS: BMI 20.2
--- NOTE | 2020-08-21 13:07 | P.PN ---
Subjective Symptomatic anemia Chronic persistent atrial fibrillation Patient is a 84-year-old female with a known history of mitral and aortic regurgitation, sarcoidosis, hypothyroidism and chronic CHF with diastolic dysfunction who was recently admitted to the hospital with atrial fibrillation with RVR and subsequently found to be profoundly anemic. Patient did receive blood transfusion and was discharged home. Patient initially presented to [facility] with complaints of shortness of breath and generalized weakness and poor oral intake. Patient was found to have hemoglobin level of 6.5 and underwent 1 unit of PRBC on Saturday. Again this morning patient was not feeling good and and her daughter took her to ER at [facility] where she has been found to have A. fib with RVR and was transferred to [facility] for evaluation. Patient was seen by hematology during recent admission. 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 dex 40mg po daily x4 was given. Echocardiogram obtained reveals preserved LV systolic function with ejection fraction 60-65%, mild aortic regurgitation, mild aortic stenosis with a mean gradient of 9 mmHg, mild MR with peak gradient across the mitral valve with 3 mmHg, mild TR and mild pulmonary hypertension with an RVSP of 41 mmHg. 08/16/2020 Patient is currently resting that. Still feeling short of breath and also having diarrhea. C. diff was sent. Hemoglobin improved to 7.8 today. Status post 1 unit of PRBC transfusion. Cardiology is following. No anticoagulation due to low platelets. 08/17/2020 Patient says that she is feeling very weak today. Hemoglobin dropped down to 6.3 and will be transfused with 1 unit of PRBC. Patient will be continued on Lasix due to pulmonary vascular congestion and continue with metoprolol. Heart rate is still elevated at 100. Audiology is on board. Not accomplished due to low platelet count. Due to pancytopenia and history of abnormal bone marrow and suspected myelodysplastic, oncology was consulted. C. diff was positive at [facility]. Started on vancomycin by mouth. 08/18/2020 Patient is currently resting in the bed comfortably. Patient states that she feels better today. Hemoglobin is 7.1. Peripheral smear showed 12% blasts. 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 Oncology is following. Patient is tolerating clear liquids. Diarrhea improved. Patient is also being continued on vancomycin for C. difficile colitis. GI is on board. Patient to be transfused with irradiated RBCs and required. 08/19/2020 Patient heart rate remains anywhere between 110-120 at rest metoprolol dose was increased.patient's creatinine is 1.2 and her baseline is around1. 08/20/2020 Patient is still requiring 3 L of oxygen usually doesn't use any oxygen at home because of which are pending x-ray which is still showing pulmonary edema patient Lasix will be changed to IV Lasix and patient heart rate is anywhere between 110-120. Although patient clinically doing well and no diarrhea. 06/02/2020 patient is pretty status did improve is saturating well on 3 L will try to wean wean her off oxygen today continue with IV Lasix for today. Patient doesn't have any more diarrhea. Constitutional: Denied any fatigue denied any fever. Cardio vascular: denied any chest pain, palpitations Gastrointestinal denied any nausea vomiting Pulmonary: Denied any shortness of breath cough Neurologic denied any new focal deficits All inpatient medications were reviewed and appropriate changes in these medications as dictated in the interval history and assessment and plan. Objective - Vital Signs Vital signs: Vital Signs Temp 98.3 F 08/21/20 08:00 Pulse 126 H 08/21/20 08:58 Resp 18 08/21/20 08:00 BP 109/68 08/21/20 08:00 Pulse Ox 98 08/21/20 08:47 Intake & Output 08/20/20 08/21/20 08/21/20 18:59 06:59 18:59 Output Total 0 Balance 0 Weight 60.5 kg Output: Urine 0 Other: Voiding Method Bedside Commode Bedside Commode Bedside Commode # Voids 1 2 - Exam PHYSICAL EXAMINATION: GENERAL: The patient is alert and oriented x3, not in any acute distress. Well developed, well nourished. HEENT: Pupils are round and equally reacting to light. EOMI. No scleral icterus. No conjunctival pallor. Normocephalic, atraumatic. No pharyngeal erythema. No thyromegaly. CARDIOVASCULAR: S1 and S2 present. No murmurs, rubs, or gallops. irregularly irregular rapid, tachycardic PULMONARY: Chest is clear to auscultation, no wheezing or crackles. ABDOMEN: Soft, nontender, nondistended, normoactive bowel sounds. No palpable organomegaly. MUSCULOSKELETAL: No joint swelling or deformity. EXTREMITIES: No cyanosis, clubbing, or pedal edema. NEUROLOGICAL: Gross neurological examination did not reveal any focal deficits. SKIN: No rashes. - Labs CBC & Chem 7: 08/19/20 08:08 08/21/20 05:31 Labs: Abnormal Lab Results - Last 24 Hours (Table) 08/21/20 Range/Units 05:31 BUN 38.0 H (9.0-27.0) mg/dL Est GFR (CKD-EPI)AfAm 54.1 L (60.0-200.0) Est GFR (CKD-EPI)NonAf 46.7 L (60.0-200.0) BUN/Creatinine Ratio 34.55 H (12.00-20.00) Ratio Calcium 8.6 L (8.7-10.3) mg/dL Assessment and Plan Plan: Symptomatic anemia .s/p transfusion hemoglobinimproved. Acute Diarrhea. Positive Cdiff at [facility].she is presently on oral vancomycin patient doesn't have any other significant episodes of diarrhea today patient actually remained on IV Lasix for CHF and diastolic dysfunction. 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 Persistent atrial fibrillation. patient has aberrantly rate continues to be on Eliquis anticoagulation dose of metoprolol was increasedtoday. History of inactive quiescent sarcoidosis Hypothyroidism Valvular heart disease Pancytopenia COPD not in exacerbation -mild acute renal failure prerenal azotemia secondary to congestive heart fail ure diastolic dysfunction DVT Proph. patient is on Eliquis
[2020-08-22] MEDS: LEVOTHYROXINE 112 MCG TAB PO SCH (06:53)
[2020-08-22] MEDS: VANCOMYCIN 125 MG CAPSULE PO SCH ×2 (06:53→12:07)
[2020-08-22 08:46] LABS: Anisocytosis Slight; HCT 20.7 % (34.0-46.0); Hypochromasia Slight; MCH 32.1 pg (25.0-35.0); MCV 97.3 fL (80.0-100.0); Macrocytosis Slight; Mean Platelet Volume 15.9; Platelet Count 86 k/uL (150-450); RBC 2.13 m/uL (3.80-5.40); RDW 17.8 % (11.5-15.5); WBC 2.4 k/uL (3.8-10.6)
[2020-08-22] MEDS: ALBUTEROL NEBULIZED 2.5 MG/3 ML INHALATION PRN (09:17)
[2020-08-22] MEDS: BUDESONIDE 0.5 MG/2 ML NEBU INHALATION SCH (09:17)
[2020-08-22 09:21] LABS: HGB 6.8 gm/dL (11.4-16.0)
[2020-08-22] MEDS: FUROSEMIDE 10 MG/ML 4 ML VIAL IV SCH (09:40)
[2020-08-22] MEDS: VIT A,C & E-LUTEIN-MINERALS 1 EACH TAB PO SCH (09:41)
[2020-08-22] MEDS: PANTOPRAZOLE 40 MG TABLET PO SCH (09:41)
[2020-08-22] MEDS: CHOLECALCIFEROL 1,000 UNIT TAB PO SCH (09:41)
[2020-08-22] MEDS: METOPROLOL TARTRATE 25 MG TAB PO SCH ×2 (09:41→17:02)
[2020-08-22] MEDS: DORZOLAMIDE HCL 2% DROPS 10 ML BTL BOTH EYES SCH (09:41)
[2020-08-22] MEDS: FERROUS SULFATE 325 MG TAB PO SCH (09:41)
[2020-08-22 10:15] LABS: African American GFR (CKD) 44.2 (60.0-200.0); Anion Gap 11.3 mmol/L (4.00-12.00); BUN/Creat Ratio 32.31 Ratio (12.00-20.00); Calcium 8.8 mg/dL (8.7-10.3); Carbon Dioxide 25.7 mmol/L (21.6-31.8); Non-African American GFR(CKD) 38.2 (60.0-200.0); Potassium 4.1 mmol/L (3.5-5.5)
[2020-08-22 11:29] LABS: Band Neutrophils % 1 %; Blast Cells # (M) 0.22 k/uL (0); Eosinophils # (M) 0.12 k/uL (0-0.7); Lymphocytes # (M) 0.53 k/uL (1.0-4.8); Metamyelocytes # (M) 0.02 k/uL (0); Metamyelocytes % 1 %; Monocytes # (M) 0.17 k/uL (0-1.0); Myelocytes # (M) 0.02 k/uL (0); Myelocytes % 1 %; Neutrophils % (M) 55 %; Nucleated Red Blood Cells 0 /100 WBC (0-0); Plasma Cells # (M) 0.02 k/uL (0); Plasma Cells % 1 %; Polychromasia Present; Total Cells Counted 200
[2020-08-22 11:30] LABS: Poikilocytosis (M) Present
[2020-08-22 11:31] LABS: Toxic Granulation Present
[2020-08-22] MEDS: CHOLESTYRAMINE (WITH SUGAR) 4 GM PACKET PO SCH (12:19)
[2020-08-22 15:16] VITALS: BP 102/61; PULSE 105; RESP 16; TEMP 97.8
--- NOTE | 2020-08-22 16:22 | P.DS ---
Providers Date of admission: 08/15/20 14:28 Attending physician: Erick Slater Consults: 08/17/20 10:14 Consult Physician Urgent Consulting Provider: Clayton Last Consult Reason/Comments: pancytopenia with blasts Do you want consulting provider notified?: Yes Primary care physician: [facility] Course: 84-year-old female with a known history of mitral and aortic regurgitation, sarcoidosis, hypothyroidism and chronic CHF with diastolic dysfunction who was recently admitted to the hospital with atrial fibrillation with RVR and subsequently found to be profoundly anemic. Patient did receive blood transfusion and was discharged home. Patient initially presented to [facility] with complaints of shortness of breath and generalized weakness and poor oral intake. Patient was found to have hemoglobin level of 6.5 and underwent 1 unit of PRBC on Saturday. Again this morning patient was not feeling good and and her daughter took her to ER at [facility] where she has been found to have A. fib with RVR and was transferred to [facility] for evaluation. Patient was seen by hematology during recent admission. 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 dex 40mg po daily x4 was given. Echocardiogram obtained reveals preserved LV systolic function with ejection fraction 60-65%, mild aortic regurgitation, mild aortic stenosis with a mean gradient of 9 mmHg, mild MR with peak gradient across the mitral valve with 3 mmHg, mild TR and mild pulmonary hypertension with an RVSP of 41 mmHg. 08/16/2020 Patient is currently resting that. Still feeling short of breath and also having diarrhea. C. diff was sent. Hemoglobin improved to 7.8 today. Status post 1 unit of PRBC transfusion. Cardiology is following. No anticoagulation due to low platelets. 08/17/2020 Patient says that she is feeling very weak today. Hemoglobin dropped down to 6.3 and will be transfused with 1 unit of PRBC. Patient will be continued on Lasix due to pulmonary vascular congestion and continue with metoprolol. Heart rate is still elevated at 100. Audiology is on board. Not accomplished due to low platelet count. Due to pancytopenia and history of abnormal bone marrow and suspected myelodysplastic, oncology was consulted. C. diff was positive at [facility]. Started on vancomycin by mouth. 08/18/2020 Patient is currently resting in the bed comfortably. Patient states that she feels better today. Hemoglobin is 7.1. Peripheral smear showed 12% blasts. 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 Oncology is following. Patient is tolerating clear liquids. Diarrhea improved. Patient is also being continued on vancomycin for C. difficile colitis. GI is on board. Patient to be transfused with irradiated RBCs and required. 08/19/2020 Patient heart rate remains anywhere between 110-120 at rest metoprolol dose was increased.patient's creatinine is 1.2 and her baseline is around1. 08/20/2020 Patient is still requiring 3 L of oxygen usually doesn't use any oxygen at home because of which are pending x-ray which is still showing pulmonary edema patient Lasix will be changed to IV Lasix and patient heart rate is anywhere between 110-120. Although patient clinically doing well and no diarrhea. 08/21/2020 patient is respiratory status did improve is saturating well on 3 L will try to wean wean her off oxygen today continue with IV Lasix for today. Patient doesn't have any more diarrhea. 08/22/2020 Patient's Respiratory status improved. Patient's hemoglobin dropped to 6.8 patient does have history of multiple myeloma and probably worsening matter dysplastic syndrome patient was given PRBC transfusion patient will follow with the her reading wire dropper and oncologist as an outpatient. Pulmonary edema improved patient appears to have some diastolic dysfunction which improved. Patient heart rate is fairly controlled and sometimes goes up to 100 are above whenever she gets breathing treatments. Will ablate the patient if her heart rate is fairly controlled below 110 patient will be discharged today. Regarding anticoagulation cardiology is not requiring any more anticoagulation at because of her anemia which appeared to be chronic. Patient appears to be in chronic persistent atrial fibrillation. Patient's overall prognosis is extremely poor. Patient will be discharged to home with home care as recommended with physical therapy and occupational therapy. Patient does have C. diff colitis will continue with famotidine Hi oral vancomycin her diarrhea completely resolved at this time. Patient uses 2 L of oxygen at home and presently on 2 L saturating well at this time. PHYSICAL EXAMINATION: GENERAL: The patient is alert and oriented x3, not in any acute distress. Thin built file female HEENT: Pupils are round and equally reacting to light. EOMI. No scleral icterus. No conjunctival pallor. Normocephalic, atraumatic. No pharyngeal erythema. No th yromegaly. CARDIOVASCULAR: S1 and S2 present. No murmurs, rubs, or gallops. irregularly irregular rapid, tachycardic PULMONARY: Chest is clear to auscultation, no wheezing or crackles. ABDOMEN: Soft, nontender, nondistended, normoactive bowel sounds. No palpable organomegaly. MUSCULOSKELETAL: No joint swelling or deformity. EXTREMITIES: No cyanosis, clubbing, or pedal edema. NEUROLOGICAL: Gross neurological examination did not reveal any focal deficits. SKIN: No rashes. Assessment and Plan Plan: Symptomatic anemia .s/p transfusion hemoglobinimproved. No evidence of acute blood loss patient has history of myelodysplastic syndrome and multiple myeloma Acute Diarrhea. Positive Cdiff at [facility]. Patient will be discharged on 5 more days of oral vancomycin Chronic CHF with diastolic function with acute exacerbation , euvolemic at this time patient will be discharged today. -Acute hypoxic respiratory failure secondary to CHF exacerbation patient will be switched to IV Lasix. Persistent atrial fibrillation. Eliquis is on hold because of above-mentioned reasons. History of sarcoidosis Hypothyroidism Valvular heart disease Pancytopenia COPD not in exacerbation -mild acute renal failure prerenal azotemia secondary to congestive heart failure diastolic dysfunction Possible chronic kidney disease stage III Plan - Discharge Summary New Discharge Prescriptions: New Metoprolol Tartrate [Lopressor] 25 mg PO TID #90 tab Vancomycin 125 mg PO Q6HR #20 capsule Continue Cholecalciferol [Vitamin D3 (25 Mcg = 1000 Iu)] 5,000 unit PO DAILY@0900 Albuterol Nebulized [Ventolin Nebulized] 2.5 mg INHALATION Q6H PRN PRN Reason: Shortness Of Breath Latanoprost [Xalatan 0.005%] 1 drop BOTH EYES HS@2100 Vit C/E/Zn/Coppr/Lutein/Zeaxan [Preservision Areds 2 Softgel] 1 tab PO DAILY@0900 Dorzolamide HCl [Trusopt 2%] 1 drop BOTH EYES BID@0900,2100 Levothyroxine Sodium [Synthroid] 112 mcg PO DAILY@0600 Ferrous Sulfate [Iron (65 MG Elemental)] 325 mg PO DAILY@0900 Furosemide [Lasix] 40 mg PO BID@0900,1600 #60 tab Omeprazole [PriLOSEC] 40 mg PO DAILY@0900 Budesonide [Pulmicort] 0.5 mg INHALATION RT-BID@899,2099 Discontinued Metoprolol Tartrate [Lopressor] 25 mg PO BID@899,2099 Apixaban [Eliquis] 2.5 mg PO BID@899,2099 Discharge Medication List Albuterol Nebulized [Ventolin Nebulized] 2.5 mg INHALATION Q6H PRN 12/22/15 [History] Cholecalciferol [Vitamin D3 (25 Mcg = 1000 Iu)] 5,000 unit PO DAILY@89912/22/15 [History] Latanoprost [Xalatan 0.005%] 1 drop BOTH EYES HS@209912/22/15 [History] Dorzolamide HCl [Trusopt 2%] 1 drop BOTH EYES BID@899,209908/01/20 [History] Ferrous Sulfate [Iron (65 MG Elemental)] 325 mg PO DAILY@89908/01/20 [History] Levothyroxine Sodium [Synthroid] 112 mcg PO DAILY@0608/01/20 [History] Vit C/E/Zn/Coppr/Lutein/Zeaxan [Preservision Areds 2 Softgel] 1 tab PO DAILY@89908/01/20 [History] Furosemide [Lasix] 40 mg PO BID@0900,1600 #60 tab 08/05/20 [Rx] Budesonide [Pulmicort] 0.5 mg INHALATION RT-BID@899,209908/15/20 [History] Omeprazole [PriLOSEC] 40 mg PO DAILY@89908/15/20 [History] Metoprolol Tartrate [Lopressor] 25 mg PO TID #90 tab 08/22/20 [Rx] Vancomycin 125 mg PO Q6HR #20 capsule 08/22/20 [Rx] Follow up Appointment(s)/Referral(s): [facility] [NON-STAFF] - Linn Kim MD [REFERRING] - 08/29/20 9:00 am (Appointment set at [address] [address] ) Elmer Armando MD [STAFF PHYSICIAN] - 08/29/20 2:45 pm (Appointment set in [place] Office ) Patient Instructions/Handouts: A-fib (Atrial Fibrillation) (DC), Multiple Myeloma (DC), Anemia (DC) Discharge Disposition: HOME WITH HOME HEALTH SERVICES
--- NOTE | 2020-08-23 11:26 | P.PN ---
Subjective Progress Note Date: 08/22/20 Principal diagnosis: Diarrhea, Colitis with neutropenia Objective - Vital Signs Vital signs: Vital Signs Temp 97.9 F 08/22/20 07:45 Pulse 112 H 08/22/20 09:34 Resp 18 08/22/20 07:45 BP 116/64 08/22/20 07:45 Pulse Ox 94 L 08/22/20 07:45 Intake & Output 08/21/20 08/22/20 08/22/20 18:59 06:59 18:59 Weight 60.5 kg Other: Voiding Method Bedside Commode Toilet # Voids 2 1 - Exam - Constitutional General appearance: cooperative, no acute distress, - Respiratory Respiratory: no increased effort during conversation - Cardiovascular Rhythm: regular Heart sounds: normal: S1, S2 - Musculoskeletal Musculoskeletal: generalized weakness - Psychiatric Poor historian Psychiatric: A&O x's 3 - Labs CBC & Chem 7: 08/22/20 06:01 08/22/20 06:01 Labs: Abnormal Lab Results - Last 24 Hours (Table) 08/22/20 Range/Units 06:01 WBC 2.4 L (3.8-10.6) k/uL RBC 2.13 L (3.80-5.40) m/uL Hgb 6.8 L* (11.4-16.0) gm/dL Hct 20.7 L (34.0-46.0) % RDW 17.8 H (11.5-15.5) % Microbiology - Last 24 Hours (Table) 08/16/20 11:42 Stool Culture - Final Stool Assessment and Plan Plan: Diarrhea/Colitis with neutropenia: - Improving on questran and bowel rest - tolerating PO intake for the most part - CBC in am Pancytopenia: - Improving - Transfuse Irradiated, LR PRBC today, and when Hemoglobin less than 7 - Hemoglobin 6.8 today - Transfuse one unit of Irradaited PRBC 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 The patient had 2 M protein's with total quantitation in the low 2 g/dL range. Although was on observation as her counts remained within safe ranges. - This admission appears to be noted change in her labs from her baseline. This could indicate progression of one or both of her underlying bone marrow conditions. Transient marrow compromise from her acute illness also remains in differential. Labs for deficiency states are negative. Status Post 08/05/20: dexamethasone 40mg PO x4 days at last discharge and was advised to see primary oncologist [place] after last hospitalization Follow-up with normal outside wireless sales associate within a week - Her repeat Myeloma numbers had greatly improved Persistent Atrial fibrillation with RVR - Symptomatic - Cardiology following - Unable to anticoagulate at this time platelet count less than 50K Acute Hypoxic Respiratory failure: - Continues to be significantly SOB - Pulm following - CHF (Diastolic) COPD exacerbation - A-fib with RVR - Unable to be anticoagulated with platelet count less than 50K - Symptomatic Anemia Recommendations: - Status post PRBC 08/21 - Discussed with RN and patient Telemedicine visit reviewing all necessary information and with permission from patient >16min.
== END 2020-08-22 17:28 | disposition home health service (06) | DRG 808 ==
LOC: 3SCARD 14:28 → 4SSUR 08-20 08:25
PROVIDERS: ADMIT Internal Medicine; ATTEND Internal Medicine
PROC: 30233N1 Transfusion of Nonautologous Red Blood Cells into Peripheral Vein, Percutaneous Approach (ICD-10-PCS; principal; 2020-08-17)
DX: D61.818 Other pancytopenia (principal); I50.33 Acute on chronic diastolic (congestive) heart failure; J96.01 Acute respiratory failure with hypoxia; C90.00 Multiple myeloma not having achieved remission; A04.72 Enterocolitis due to Clostridium difficile, not specified as recurrent; I48.19 Other persistent atrial fibrillation; N17.9 Acute kidney failure, unspecified; I27.20 Pulmonary hypertension, unspecified; J44.9 Chronic obstructive pulmonary disease, unspecified; N18.30 Chronic kidney disease, stage 3 unspecified; D46.9 Myelodysplastic syndrome, unspecified; D86.9 Sarcoidosis, unspecified; E03.9 Hypothyroidism, unspecified; I08.3 Combined rheumatic disorders of mitral, aortic and tricuspid valves; Z79.01 Long term (current) use of anticoagulants; Z79.890 Hormone replacement therapy; Z79.899 Other long term (current) drug therapy; Z87.891 Personal history of nicotine dependence; Z87.01 Personal history of pneumonia (recurrent); Z90.49 Acquired absence of other specified parts of digestive tract; Z87.19 Personal history of other diseases of the digestive system; Z83.3 Family history of diabetes mellitus; Z80.9 Family history of malignant neoplasm, unspecified
CPT/HCPCS: 71045; 74019; 80048; 80076; 82607; 82728; 82746; 82784; 83540; 83550; 83615; 83630; 83735; 83883; 83921; 84100; 84165; 84550; 85025; 85045; 85610; 85730; 86334; 86850; 86900; 86901; 86920; 87045; 87046; 87324; 94640; 94760